=== PATIENT | female | born 1935 | race Caucasian/White ===

== ENCOUNTER 2016-08-12 09:19 | Inpatient (IN) | payer MEDICARE, BC, OTHER ==
[~2016-08-12] VITALS: Ht 152.4 cm; Wt 42.1 kg
[2016-08-12] VITALS (8 sets, daily range): BP systolic 133–220; BP diastolic 77–116; PULSE 97–119; RESP 16–29; TEMP 97.6–98.1; O2SAT 96–99
[~2016-08-12 09:19] MED LIST: ASPI-110 PO; CHOL400D2 PO; CYAN1TAB24 PO; METO25TA6 PO; MULT1TAB46 PO; TYLETAB34 PO
[2016-08-12] MEDS ORDERED: ONDANSETRON HCL 4 MG/2 ML VIAL IV PUSH ONE (09:30)
[2016-08-12] MEDS ORDERED: MORPHINE SULFATE 4 MG/ML INJ IV PUSH ONE (09:30)
--- NOTE | 2016-08-12 09:33 | PD ---
HPI Chief Complaint: Pain: Acute or Chronic Time Seen by Provider: 09:21 Travel History International Travel<30 days: No Contact w/Intl Traveler<30days: No Traveled to known affect area: No History of Present Illness HPI 80-year-old female complains of bilateral hip pain. Patient states that she has intermittent bilateral hip pain for the past year after a fall. Patient was seen by personal physician and neurosurgeon recently. Patient had MRI of the lumbar spine recently which shows DJD and disc disease. Patient denies any recent injury. Patient states the pain sharp severe pain worse on the left than the right hip. Patient denies any pain radiation. Patient denies any headache. Patient denies any chest pain or shortness of breath. Patient denies abdominal pain. Patient denies any back pain. Patient states the pain most severe on the back of the hip joint. On a scale of 1-10 the pain is a 10. PFSH Past Medical History Arthritis: Yes Asthma: No Autoimmune Disease: No Blood Disorders: No Anxiety: No Depression: No Heart Rhythm Problems: No Cancer: No Cardiac Catheterization: Yes Cardiovascular Problems: Yes (stent) High Cholesterol: Yes Chemotherapy: No Chest Pain: No Congestive Heart Failure: No COPD: No Cerebrovascular Accident: No Diabetes: No Diminished Hearing: No Endocrine: No Gastrointestinal Disorders: Yes (previous bowel obstruction, chronic diarrhea) GERD: No Glaucoma: No Genitourinary: No Headaches: No Hepatitis: No Hiatal Hernia: No Hypertension: Yes Immune Disorder: No Implanted Vascular Access Dvce: Yes Kidney Stones: No Musculoskeletal: Yes (OSTEOPOROSIS. DDD) Neurologic: Yes Psychiatric: No Reproductive: No Respiratory: No Integumentary: Yes (WOUND ON RIGHT LEG) Immunizations Current: No Migraines: No Myocardial Infarction: Yes Radiation Therapy: No Renal Failure: No Seizures: No Sickle Cell Disease: No Sleep Apnea: No Thyroid Disease: No Ulcer: No PNEUMOCCOCAL Vaccine (Year): 2 Menopausal: Yes Past Surgical History AICD: No Arteriovenous Shunt: No Body Medical Devices: cardiac stent Cardiac Surgery: Yes (Cardiac stents x2) Coronary Artery Bypass Graft: Yes Coronary Stent: Yes (X 2) Ear Surgery: No Endocrine Surgery: No Eye Surgery: No Genitourinary Surgery: No Gynecologic Surgery: No Hysterectomy: Yes Insulin Pump: No Joint Replacement: Yes (bilateral total knee replacement) Neurologic Surgery: No Oral Surgery: No Pacemaker: No Thoracic Surgery: No Other Surgery: Yes (R CAROTID ENDARTECTOMY) Social History Alcohol Use: No Tobacco Use: No Substance Use: No Allergies-Medications (Allergen,Severity, Reaction): Coded Allergies: Ambien (Verified Allergy, Severe, made her go crazy, 08/12/16) Plavix (Verified Allergy, Mild, 08/12/16) PEANUTS (Verified Allergy, Unknown, Swelling, 08/12/16) pt states her lips "blow up" [place] (Verified Allergy, Unknown, Swelling, 08/12/16) pt states that her "lips blow up" Uncoded Allergies: Wine (Allergy, Intermediate, Rash, 05/24/16) Reported Meds & Prescriptions Reported Meds & Active Scripts Active Reported Tylenol-Codeine #3 (Acetaminophen-Codeine) 300-30 mg Tab 1 Tab PO Q4H PRN Multi Vitamin Daily (Multiple Vitamin) 1 Tab Tab 1 Tab PO DAILY B12 (Cyanocobalamin) 1,000 Mcg Tab 2,500 Mcg PO DAILY Aspirin 81 (Aspirin) 81 Mg Tabdr 81 Mg PO DAILY Metoprolol Succinate ER 24 HR (Metoprolol Succinate) 25 Mg Tab 25 Mg PO BID Review of Systems General / Constitutional: No: Fever Eyes: No: Visual changes HENT: No: Headaches Cardiovascular: No: Chest Pain or Discomfort Respiratory: No: Shortness of Breath Gastrointestinal: No: Abdominal Pain Genitourinary: No: Dysuria Musculoskeletal: Positive: Pain Skin: No Rash Neurologic: No: Weakness Psychiatric: No: Depression Endocrine: No: Polydipsia Hematologic/Lymphatic: No: Easy Bruising Physical Exam Narrative GENERAL: Well-nourished, well-developed patient. SKIN: Focused skin assessment warm/dry. HEAD: Normocephalic. EYES: No scleral icterus. No injection or drainage. NECK: Supple, trachea midline. No JVD or lymphadenopathy. CARDIOVASCULAR: Regular rate and rhythm without murmurs, gallops, or rubs. RESPIRATORY: Breath sounds equal bilaterally. No accessory muscle use. GASTROINTESTINAL: Abdomen soft, non-tender, nondistended. MUSCULOSKELETAL: No cyanosis, or edema. Patient has moderate tenderness palpation posterior aspect of both hip joint. Full range of motion the hip. Sensorimotor function distally intact. BACK: Nontender without obvious deformity. No CVA tenderness. Neurologic exam: Patient's awake and alert oriented 3. No obvious focal neurological deficit. Data Data Last Documented VS Vital Signs Date Time Temp Pulse Resp B/P Pulse Ox O2 Delivery O2 Flow Rate FiO2 08/12/16 12:42 108 24 165/81 96 Room Air 08/12/16 09:27 98.1 Orders Morphine Inj (Morphine Inj) (08/12/16 09:30) Ondansetron Inj (Zofran Inj) (08/12/16 09:30) Hip, Uni(Ap&Lat) Wo Ap Pelvis (08/12/16 09:30) Hip, Uni(Ap&Lat) W Ap Pelvis (08/12/16 09:30) Ketorolac Inj (Toradol Inj) (08/12/16 09:45) Lorazepam Inj (Ativan Inj) (08/12/16 11:45) Ct Brain W/O Iv Contrast(Rout) (08/12/16 11:36) Urinary Catheter Insert/Apply (08/12/16 12:01) Complete Blood Count With Diff (08/12/16 12:08) Basic Metabolic Panel (Bmp) (08/12/16 12:08) Prothrombin Time / Inr (Pt) (08/12/16 12:08) Act Partial Throm Time (Ptt) (08/12/16 12:08) Urinalysis - C+S If Indicated (08/12/16 12:08) Labs Laboratory Tests Test 08/12/16 08/12/16 10:15 12:00 White Blood Count 13.0 TH/MM3 Red Blood Count 4.37 MIL/MM3 Hemoglobin 13.5 GM/DL Hematocrit 42.1 % Mean Corpuscular Volume 96.3 FL Mean Corpuscular Hemoglobin 30.8 PG Mean Corpuscular Hemoglobin 32.0 % Concent Red Cell Distribution Width 14.0 % Platelet Count 316 TH/MM3 Mean Platelet Volume 9.5 FL Neutrophils (%) (Auto) 74.9 % Lymphocytes (%) (Auto) 15.3 % Monocytes (%) (Auto) 7.6 % Eosinophils (%) (Auto) 1.0 % Basophils (%) (Auto) 1.2 % Neutrophils # (Auto) 9.7 TH/MM3 Lymphocytes # (Auto) 2.0 TH/MM3 Monocytes # (Auto) 1.0 TH/MM3 Eosinophils # (Auto) 0.1 TH/MM3 Basophils # (Auto) 0.2 TH/MM3 CBC Comment DIFF FINAL Differential Comment Prothrombin Time 10.5 SEC Prothromb Time International 1.0 RATIO Ratio Activated Partial 23.3 SEC Thromboplast Time Sodium Level 137 MEQ/L Potassium Level 3.8 MEQ/L Chloride Level 102 MEQ/L Carbon Dioxide Level 24.9 MEQ/L Anion Gap 10 MEQ/L Blood Urea Nitrogen 17 MG/DL Creatinine 0.76 MG/DL Estimat Glomerular Filtration 73 ML/MIN Rate Random Glucose 91 MG/DL Calcium Level 9.5 MG/DL Urine Color YELLOW Urine Turbidity CLEAR Urine pH 5.5 Urine Specific [place] 1.034 Urine Protein TRACE mg/dL Urine Glucose (UA) NEG mg/dL Urine Ketones 10 mg/dL Urine Occult Blood NEG Urine Nitrite NEG Urine Bilirubin NEG Urine Urobilinogen LESS THAN 2.0 MG/DL Urine Leukocyte Esterase NEG Urine RBC 2 /hpf Urine WBC 2 /hpf Urine Bacteria RARE /hpf Urine Mucus FEW /lpf Microscopic Urinalysis Comment CULT NOT INDICATED MDM Medical Decision Making Medical Screen Exam Complete: Yes Emergency Medical Condition: Yes Interpretation(s) Last Impressions Head CT 08/12/16 1136 Signed Impressions: Service Date/Time: Friday, August 12, 2016 12:19 - CONCLUSION: Central and cortical atrophy otherwise negative for an acute process.. Massimo Barrios MD FACR Hip and Pelvis X-Ray 08/12/16929 Signed Impressions: Service Date/Time: Friday, August 12, 2016 10:03 - CONCLUSION: 1. No acute fracture or joint dislocation. 2. Old healed fractures involving the left superior and inferior pubic rami. Cosme Hernandez MD Hip X-Ray 08/12/16929 Signed Impressions: Service Date/Time: Friday, August 12, 2016 10:03 - CONCLUSION: 1. 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 Cosme Hernandez MD 1300 p.m. CBC WBC 13.0. 74 neutrophil. BMP within normal limit. UA is negative. Differential Diagnosis Differential diagnosis including osteoarthritis, fracture, dislocation, tendinitis, bursitis, radiculopathy. Narrative Course 80-year-old female with bilateral hip pain. Patient fell years ago and has intermittent pain since then. Toradol 30 mg IV. Morphine 2 mg IV. Zofran 4 mg IV. Patient became agitated with tachycardia and elevated blood pressure. Ativan 0.5 mg IV given. Patient got better and tachycardia and elevated blood pressure resolved. Patient resting comparably. states that he cannot take care of the patient by himself at home. Patient was the halfway in the past. Patient's took patient out and now states that he is unable to take care of patient at home. Patient's requesting family preservation caseworker consultation. I spoke with Dr. Forbes's physician operations and intelligence assistant. Advised admission and family preservation caseworker consultation for placement. Diagnosis Primary Impression: Arthralgia of hip Qualified Code: M25.551 - Pain of both hip joints Additional Impression: Unable to ambulate Admitting Information Admitting Physician Requests: Admit Wicho Gamino MD Aug 12, 2016 09:33
[2016-08-12] MEDS ORDERED: KETOROLAC TROMETHAMINE 30 MG/ML (IVP) VIAL IV PUSH ONE (09:45)
--- NOTE | 2016-08-12 10:16 | RADRPT ---
EXAM DATE/TIME: 08/12/2016 10:03 [facility] COMPARISON: No previous studies available for comparison. INDICATIONS : Chronic right hip pain after a fall 1 year ago. MEDICAL HISTORY : None. SURGICAL HISTORY : Right femoral kitty. ENCOUNTER: Initial ACUITY: >1 year PAIN SCORE: 10/10 LOCATION: Right pelvis FINDINGS: Examination of the right hip was performed with AP Pelvis. The bony structures of the pelvis and righ t hip are grossly intact. No acute bony fracture or joint dislocation is seen. There is evidence of o ld healed fractures involving the left superior and inferior pubic ramus. There is good alignment at the SI joints and pubic symphysis. There is evidence of previous internal fixation of the right femur . The hardware is grossly intact area there is a total right knee prosthesis in place. Vascular calci fications are noted in the soft tissues. There is protrusio acetabula of the left hip. CONCLUSION: 1. No acute fracture or joint dislocation. 2. Old healed fractures involving the left superior and inferior pubic rami. Cosme Hernandez MD on August 12, 2016 at 10:12 Board Certified Radiologist. This report was verified electronically.
--- NOTE | 2016-08-12 10:21 | RADRPT ---
EXAM DATE/TIME: 08/12/2016 10:03 [facility] COMPARISON: No previous studies available for comparison. INDICATIONS : Chronic left hip pain after a fall 1 year ago. MEDICAL HISTORY : None. SURGICAL HISTORY : Right femoral kitty. ENCOUNTER: Initial ACUITY: >1 year PAIN SCORE: 10/10 LOCATION: Left pelvis FINDINGS: A two view examination of the left hip was performed. There are old healed fractures involving the smith perior pubic ramus and inferior pubic ramus. There is good alignment at the pubic symphysis. 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 This is chronic changes related to arthritis. There is narrowin g of the joint space. No acute fracture or joint dislocation is seen. There are vascular calcificatio ns in the soft tissues. CONCLUSION: 1. 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 Cosme Hernandez MD on August 12, 2016 at 10:18 Board Certified Radiologist. This report was verified electronically.
[2016-08-12] MEDS ORDERED: LORazepam 2 MG/ML VIAL IV PUSH ONE (11:45)
[2016-08-12 12:37] LABS: BACTERIA, URINE RARE /hpf; BLOOD, URINE NEG (NEG); COMMENT (UR) CULT NOT INDICATED; CULTURE IF INDICATED CULT NOT INDICATED; GLUCOSE,URINE NEG (NEG); KETONE, URINE 10 mg/dL (NEG); MUCUS URINE FEW /lpf (OCC); NITRITE,URINE NEG (NEG); PH, URINE 5.5 (5.0-8.5); URINE COLOR YELLOW (YELLW/STRAW)
[2016-08-12 12:44] LABS: AUTOMATED NEUTROPHIL # 9.7 TH/MM3 (1.8-7.7); BASOPHIL # 0.2 TH/MM3 (0-0.2); BASOPHIL % 1.2 % (0.0-2.0); EOSINOPHIL # 0.1 TH/MM3 (0-0.4); HEMATOCRIT 42.1 % (35.0-46.0); HEMO FLAGS DIFF FINAL; LYMPH % 15.3 % (9.0-44.0); MEAN CELL VOLUME 96.3 FL (80.0-100.0); MEAN CORPUSCULAR HEMOGLOBIN 30.8 PG (27.0-34.0); MONO % 7.6 % (0.0-8.0); NEUT % 74.9 % (16.0-70.0); PLATELET COUNT 316 TH/MM3 (150-450); RED BLOOD COUNT 4.37 MIL/MM3 (4.00-5.30)
--- NOTE | 2016-08-12 12:44 | RADRPT ---
EXAM DATE/TIME: 08/12/2016 12:19 [facility] COMPARISON: CT BRAIN W/O CONTRAST, July 05, 2015, 16:55. INDICATIONS : Altered mental status. RADIATION DOSE: 56.35 CTDIvol (mGy) MEDICAL HISTORY : Cardiovascular disease. Hypertension. SURGICAL HISTORY : CABG Carotid endarterectomy. ENCOUNTER: Initial ACUITY: 1 day PAIN SCALE: 0/10 LOCATION: cranial TECHNIQUE: Multiple contiguous axial images were obtained of the head. Using automated exposure control and adj ustment of the mA and/or kV according to patient size, radiation dose was kept as low as reasonably a chievable to obtain optimal diagnostic quality images. DICOM format image data is available electro nically for review and comparison. FINDINGS: CEREBRUM: There is mild central and cortical atrophy with periventricular white matter changes. There is no par enchymal hemorrhage, acute infarction or mass lesion. POSTERIOR FOSSA: The cerebellum and brainstem are intact. The 4th ventricle is midline. The cerebellopontine angle i s unremarkable. EXTRACRANIAL: The visualized portion of the orbits are unremarkable. The visualized sinuses are clear. SKULL: The calvaria is intact. No evidence of skull fracture. CONCLUSION: Central and cortical atrophy otherwise negative for an acute process.. Massimo Barrios MD FACR Board Certified Radiologist. This report was verified electronically.
[2016-08-12 12:45] LABS: APTT (PATIENT) 23.3 SEC (24.3-30.1); PROTHROMBIN TIME - PATIENT 10.5 SEC (9.8-11.6)
[2016-08-12 12:57] LABS: BICARBONATE 24.9 MEQ/L (21.0-32.0); POTASSIUM 3.8 MEQ/L (3.5-5.1)
[2016-08-12] MEDS ORDERED: ONDANSETRON HCL 4 MG/2 ML VIAL IVP PRN (14:45)
[2016-08-12] MEDS ORDERED: MAGNESIUM HYDROXIDE SUSP 30 ML CUP PO PRN (14:45)
[2016-08-12] MEDS ORDERED: BISACODYL 10 MG SUPP RECTAL PRN (14:45)
[2016-08-12] MEDS ORDERED: SENNOSIDES 8.6 MG TAB PO PRN (14:45)
[2016-08-12] MEDS ORDERED: ACETAMINOPHEN 325 MG TAB PO PRN (14:45)
[2016-08-12] MEDS ORDERED: NALOXONE HCL 0.4 MG/ML AMP IV PRN (14:45)
[2016-08-12] MEDS ORDERED: SODIUM CHLORIDE 0.9% FLUSH 10 ML FLUSH IV FLUSH PRN (14:45)
--- NOTE | 2016-08-12 15:24 | HHI.HP ---
History of Present Illness Primary Care Physician Tyrell Forbes, DO Admission Diagnosis hip arthralgia. Unable to ambulate. marked anxiety Diagnoses: History of Present Illness halle had long-term anxiety and hypertension today her hipsbecame very painful and she was unable to ambyulate she became extremely anxious to the point of a full blown panic attack and was brought to ED by her Review of Systems Constitutional: COMPLAINS OF: Weight loss Musculoskeletal: COMPLAINS OF: Joint pain, Muscle aches, Stiffness, Back pain Past Family Social History Allergies: Coded Allergies: Ambien (Verified Allergy, Severe, made her go crazy, 08/12/16) Plavix (Verified Allergy, Mild, 08/12/16) PEANUTS (Verified Allergy, Unknown, Swelling, 08/12/16) pt states her lips "blow up" [place] (Verified Allergy, Unknown, Swelling, 08/12/16) pt states that her "lips blow up" Uncoded Allergies: Wine (Allergy, Intermediate, Rash, 05/24/16) Past Medical History hypertension anxiety Past Surgical History pt claims back injections epidural steroids Reported Medications Reported Meds & Active Scripts Active Reported Tylenol-Codeine #3 (Acetaminophen-Codeine) 300-30 mg Tab 1 Tab PO Q4H PRN Multi Vitamin Daily (Multiple Vitamin) 1 Tab Tab 1 Tab PO DAILY B12 (Cyanocobalamin) 1,000 Mcg Tab 2,500 Mcg PO DAILY Aspirin 81 (Aspirin) 81 Mg Tabdr 81 Mg PO DAILY Metoprolol Succinate ER 24 HR (Metoprolol Succinate) 25 Mg Tab 25 Mg PO BID Active Ordered Medications Inpatient Medications Acetaminophen (Tylenol) 650 mg Q4H PRN PO TEMP > 100.4; Start 08/12/16 at 14:45 ; Status UNV Aspirin (Ecotrin Ec) 81 mg DAILY PO ; Start 08/13/16 at 09:00; Status UNV Bisacodyl (Dulcolax Supp) 10 mg DAILY PRN RECTAL SEVERE CONSITIPATION; Start at 14:45; Status UNV Enoxaparin Sodium (Lovenox Inj) 30 mg Q24H SQ ; Start 08/12/16 at 14:45; Status UNV Famotidine (Pepcid) 20 mg BID PO ; Start 08/12/16 at 21:00; Status UNV Ketorolac Tromethamine (Toradol Inj) 30 mg ONCE ONCE IV PUSH Last administered on 08/12/16 09:45; Start 08/12/16 at 09:45; Stop 08/12/16 at 09:46; Status DC Lorazepam (Ativan Inj) 0.5 mg ONCE ONCE IV PUSH Last administered on 08/12/16 11:40; Start 08/12/16 at 11:45; Stop 08/12/16 at 11:46; Status DC Magnesium Hydroxide (Milk Of Magnesia Liq) 30 ml Q12H PRN PO MILD - MODERATE CONSTIPATION; Start 08/12/16 at 14:45; Status UNV Metoprolol Succinate (Toprol Xl) 25 mg BID PO ; Start 08/12/16 at 21:00; Status UNV Morphine Sulfate (Morphine Inj) 2 mg ONCE ONCE IV PUSH Last administered on 09:35; Start 08/12/16 at 09:30; Stop 08/12/16 at 09:31; Status DC Naloxone HCl (Narcan Inj) 0.4 mg UNSCH PRN IV SEE LABEL COMMENTS; Start at 14:45; Status UNV Non-Formulary Medication 1 tab DAILY PO ; Start 08/13/16 at 09:00; Status UNV Ondansetron HCl (Zofran Inj) 4 mg Q6H PRN IVP NAUSEA OR VOMITING; Start at 14:45; Status UNV Senna/Docusate Sodium (Leonor-Colace) 1 tab BID PO ; Start 08/12/16 at 21:00; Status UNV Sennosides (Senokot) 17.2 mg Q12H PRN PO MODERATE - SEVERE CONSTIPATION; Start 08/12/16 at 14:45; Status UNV Sodium Chloride (NS Flush) 2 ml BID IV FLUSH ; Start 08/12/16 at 21:00; Status UNV Family History non contributatory Social History non smoker rare drinker Physical Exam Vital Signs Vital Signs Date Time Temp Pulse Resp B/P Pulse Ox O2 Delivery O2 Flow Rate FiO2 08/12/16 15:06 99 16 133/86 99 Room Air 08/12/16 12:42 108 24 165/81 96 Room Air 08/12/16 11:32 119 29 200/116 98 Room Air 08/12/16 09:45 103 27 160/77 99 Room Air 08/12/16 09:37 97 16 220/100 97 Room Air 08/12/16 09:27 98.1 105 26 220/100 99 Physical Exam GENERAL: This is a frail anxious white female SKIN: No rashes, ecchymoses or lesions. Cool and dry. HEAD: Atraumatic. Normocephalic. No temporal or scalp tenderness. EYES: Pupils equal round and reactive. Extraocular motions intact. No scleral icterus. No injection or drainage. ENT: Nose without bleeding, purulent drainage or septal hematoma. Throat without erythema, tonsillar hypertrophy or exudate. Uvula midline. Airway patent. NECK: Trachea midline. No JVD or lymphadenopathy. Supple, nontender, no meningeal signs. CARDIOVASCULAR: Regular rate and rhythm without murmurs, gallops, or rubs. RESPIRATORY: Clear to auscultation. Breath sounds equal bilaterally. No wheezes , rales, or rhonchi. GASTROINTESTINAL: Abdomen soft, non-tender, nondistended. No hepato-splenomegaly , or palpable masses. No guarding. MUSCULOSKELETAL: Extremities without clubbing, cyanosis, or edema. strength is diminished bilaterally NEUROLOGICAL: Awake and alert very anxious. Cranial nerves II through XII intact. Motor and sensory grossly within normal limits Normal speech. Laboratory Laboratory Tests Test 08/12/16 08/12/16 10:15 12:00 White Blood Count 13.0 Red Blood Count 4.37 Hemoglobin 13.5 Hematocrit 42.1 Mean Corpuscular Volume 96.3 Mean Corpuscular Hemoglobin 30.8 Mean Corpuscular Hemoglobin 32.0 Concent Red Cell Distribution Width 14.0 Platelet Count 316 Mean Platelet Volume 9.5 Neutrophils (%) (Auto) 74.9 Lymphocytes (%) (Auto) 15.3 Monocytes (%) (Auto) 7.6 Eosinophils (%) (Auto) 1.0 Basophils (%) (Auto) 1.2 Neutrophils # (Auto) 9.7 Lymphocytes # (Auto) 2.0 Monocytes # (Auto) 1.0 Eosinophils # (Auto) 0.1 Basophils # (Auto) 0.2 CBC Comment DIFF FINAL Differential Comment Prothrombin Time 10.5 Prothromb Time International 1.0 Ratio Activated Partial 23.3 Thromboplast Time Sodium Level 137 Potassium Level 3.8 Chloride Level 102 Carbon Dioxide Level 24.9 Anion Gap 10 Blood Urea Nitrogen 17 Creatinine 0.76 Estimat Glomerular Filtration 73 Rate Random Glucose 91 Calcium Level 9.5 Urine Color YELLOW Urine Turbidity CLEAR Urine pH 5.5 Urine Specific [place] 1.034 Urine Protein TRACE Urine Glucose (UA) NEG Urine Ketones 10 Urine Occult Blood NEG Urine Nitrite NEG Urine Bilirubin NEG Urine Urobilinogen LESS THAN 2.0 Urine Leukocyte Esterase NEG Urine RBC 2 Urine WBC 2 Urine Bacteria RARE Urine Mucus FEW Microscopic Urinalysis Comment CULT NOT INDICATED Result Diagram: 08/12/16 1015 08/12/16 1015 Imaging Last [address] 08/12/16 1136 Signed Impressions: Service Date/Time: Friday, August 12, 2016 12:19 - CONCLUSION: Central and cortical atrophy otherwise negative for an acute process.. Massimo Barrios MD FACR Hip and Pelvis X-Ray 08/12/16929 Signed Impressions: Service Date/Time: Friday, August 12, 2016 10:03 - CONCLUSION: 1. No acute fracture or joint dislocation. 2. Old healed fractures involving the left superior and inferior pubic rami. Cosme Hernandez MD Hip X-Ray 08/12/16929 Signed Impressions: Service Date/Time: Friday, August 12, 2016 10:03 - CONCLUSION: 1. 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 Cosme Hernandez MD Course pt has been medicated for pain and is more comfortable now Assessment and Plan Problem List: (1) Arthralgia of hip Status: Acute (2) Parkinsonism Status: Acute Plan: consult neuro (3) Hypertension Status: Chronic Plan: stable on metoprolol (4) Unable to ambulate Status: Acute Plan: neurosurgical consult (5) Weakness Status: Acute Plan: ck lab Assessment and Plan bilateral hip pain anxiety Discharge Planning rehab Problem Qualifiers (1) Arthralgia of hip: Qualified Code: M25.551 - Pain of both hip joints Tyrell Forbes DO Aug 12, 2016 15:24
[2016-08-12] MEDS ORDERED: LORazepam 2 MG/ML VIAL IV PUSH PRN (15:30)
--- NOTE | 2016-08-12 17:32 | RADRPT ---
EXAM DATE/TIME: 08/12/2016 16:32 [facility] COMPARISON: MRI LUMBAR SPINE W/O CONTRAST, July 05, 2015, 18:18. INDICATIONS : Inability to ambulate. Low back pain. MEDICAL HISTORY : Osteoarthritis. Hypertension. SURGICAL HISTORY : Carotid endarterectomy. Total knee replacement, right. Coronary artery stent. ENCOUNTER: Initial ACUITY: 1 day PAIN SCORE: 7/10 LOCATION: Low back TECHNIQUE: Multiplanar multisequence MRI of the lumbar spine was performed without contrast. FINDINGS: The most caudal appearing lumbar vertebra is numbered as L5. VERTEBRAE: There is a new moderate to prominent compression fracture injury at T12. There is bone marrow edema s een throughout the body of T12. There are primary bony degenerative changes of the lumbar spine. Ther e is disc dehydration all the levels with disc space narrowing at L1-2 and L5-S1. The degenerative ch anges of the lumbar spine appear to be stable compared to the prior exam. [place]: Normal level and configuration. T12-L1: There is a moderate compression fracture injury at the level of T12. There is diffuse broad-based bul ging of the disc. There is retropulsion of the bone material posteriorly secondary to the compression fracture of T12 causing at least moderate to severe spinal canal stenosis. There is narrowing of the neural foramina bilaterally. L1-L2: The thecal sac has a normal diameter. No evidence of disc bulge or protrusion. The neural foramina are patent bilaterally. L2-L3: The thecal sac has a normal diameter. No evidence of disc bulge or protrusion. The neural foramina are patent bilaterally. L3-L4: The thecal sac has a normal diameter. No evidence of disc bulge or protrusion. The neural foramina are patent bilaterally. Bilateral facet arthritis. L4-L5: Mild broad-based bulging. The neural foramina are patent. There is bilateral facet arthritis. L5-S1: Mild broad-based bulging. The neural foramina are patent bilaterally. Bilateral facet arthritis. CONCLUSION: 1. There is a new moderate to prominent compression fracture injury at T12. There is moderate diffuse broad-based bulging at T12-L1 as well as retropulsion of bone material posteriorly causing at least moderate to severe spinal canal stenosis. 2. There is stable primary bony degenerative changes, disc degeneration and disc space narrowing invo lving the lumbar spine when compared to 2016. Cosme Hernandez MD on August 12, 2016 at 17:24 Board Certified Radiologist. This report was verified electronically.
[2016-08-12] MEDS: ACETAMINOPHEN/CODEINE 300 MG/30 MG TAB PO PRN (17:59)
[2016-08-12] MEDS: ENOXAPARIN SODIUM 30 MG/0.3 ML SYRINGE SQ SCH (18:00)
[2016-08-12] MEDS ORDERED: METOPROLOL SUCCINATE 25 MG EXTENDED RELEASE TAB PO ONE (19:45)
[2016-08-12] MEDS: DOCUSATE SODIUM 50 MG/SENNA 8.6 MG TAB PO SCH (20:13)
[2016-08-12] MEDS: FAMOTIDINE 20 MG TAB PO SCH (20:13)
[2016-08-12] MEDS: SODIUM CHLORIDE 0.9% FLUSH 10 ML FLUSH IV FLUSH SCH (20:13)
[2016-08-12] MEDS: METOPROLOL SUCCINATE 25 MG EXTENDED RELEASE TAB PO SCH (21:00)
--- NOTE | 2016-08-12 22:11 | PD.CONS ---
History of Present Illness Service Neurosurgery Consult Requested By Dr. Forbes Reason for Consult Compression fracture Primary Care Physician Tyrell Forbes, DO Diagnoses: History of Present Illness 80-year-old female presented to the emergency room with progressive back and hip pain. The patient was previously seen by the undersigned as an outpatient on 07/18/16 with a history of approximately one year of persistent and overall progressive back pain treated with conservative treatment as well as pain management. She has a history of falling last fall with generalized increase in her pain. In early July 2016 she felt a snapping sensation in her back with further increase in back pain. Her examination on 07/18/16 revealed no significant lower extremity neurologic deficit. An MRI of 07/08/[facility] has revealed a proximally 75% mid anterior T12 compression fracture with relatively good preservation of posterior vertebral body height and minimal retropulsion into the canal without significant neural compromise. Minimal increasing intensity in the posterior vertebral body. Probable subacute to chronic fracture. Patient was placed in a lumbar brace. She states that over the past 2-3 weeks the pain became even more severe to the point where she can ambulate for only a short distance with a walker. She states that her pain is 10/10 severity and more recently has started to radiate into the left greater than right hip. She denies any pain weakness or numbness in the lower extremities. No problems with bowel or bladder dysfunction. She has been using a wheelchair to mobilize for long distances for a few months. Review of Systems Constitutional: COMPLAINS OF: Fatigue, DENIES: Fever, Change in appetite Eyes: DENIES: Blurred vision Respiratory: DENIES: Shortness of breath Cardiovascular: DENIES: Chest pain, Palpitations Gastrointestinal: DENIES: Abdominal pain, Nausea Musculoskeletal: COMPLAINS OF: Joint pain, Muscle aches, Back pain Hematologic/lymphatic: COMPLAINS OF: Bruising Neurologic: COMPLAINS OF: Abnormal gait, DENIES: Headache Psychiatric: COMPLAINS OF: Anxiety Past Family Social History Allergies: Coded Allergies: Ambien (Verified Allergy, Severe, made her go crazy, 08/12/16) Plavix (Verified Allergy, Mild, 08/12/16) PEANUTS (Verified Allergy, Unknown, Swelling, 08/12/16) pt states her lips "blow up" [place] (Verified Allergy, Unknown, Swelling, 08/12/16) pt states that her "lips blow up" Uncoded Allergies: Wine (Allergy, Intermediate, Rash, 05/24/16) Past Medical History Coronary artery disease Previous CA Parkinson's Arthritis Hypertension Dyslipidemia Past Surgical History Hysterectomy Bilateral knee arthroplasty Carotid endarterectomy Cardiac stents Reported Medications Reported Meds & Active Scripts Active Reported Tylenol-Codeine #3 (Acetaminophen-Codeine) 300-30 mg Tab 1 Tab PO Q4H PRN Multi Vitamin Daily (Multiple Vitamin) 1 Tab Tab 1 Tab PO DAILY B12 (Cyanocobalamin) 1,000 Mcg Tab 2,500 Mcg PO DAILY Aspirin 81 (Aspirin) 81 Mg Tabdr 81 Mg PO DAILY Metoprolol Succinate ER 24 HR (Metoprolol Succinate) 25 Mg Tab 25 Mg PO BID Family History The history of cancer, neurologic disease in the family Social History Lives with her Does not smoke cigarettes or drink alcohol Physical Exam Vital Signs Vital Signs Date Time Temp Pulse Resp B/P Pulse Ox O2 Delivery O2 Flow Rate FiO2 08/12/16 17:15 97.6 101 19 201/89 98 08/12/16 15:06 99 16 133/86 99 Room Air 08/12/16 12:42 108 24 165/81 96 Room Air 08/12/16 11:32 119 29 200/116 98 Room Air 08/12/16 09:45 103 27 160/77 99 Room Air 08/12/16 09:37 97 16 220/100 97 Room Air 08/12/16 09:27 98.1 105 26 220/100 99 Physical Exam GENERAL: Patient is a very frail, cachectic-appearing lady who appears somewhat anxious and mildly confused. SKIN: Multiple areas of ecchymosis throughout the upper extremities. Very fragile skin. Multiple skin tears in the upper extremities. Positive dressing over her sacral skin ulcerations. HEAD: Atraumatic. Normocephalic. No temporal or scalp tenderness. EYES: Sclerae are clear and nonicteric ENT: Oropharynx clear. No facial edema or ecchymosis NECK: Trachea midline. No JVD or lymphadenopathy. Supple, nontender, no meningeal signs. CARDIOVASCULAR: Regular rate and rhythm without murmurs, gallops, or rubs. RESPIRATORY: Clear to auscultation. Breath sounds equal bilaterally. No wheezes , rales, or rhonchi. GASTROINTESTINAL: Abdomen soft, non-tender, nondistended. No hepato-splenomegaly , or palpable masses. No guarding. MUSCULOSKELETAL: Relatively good range of motion of the shoulder joints. Complaint of low back and left greater than right hip pain with mild hip range of motion. Diffuse muscular atrophy in the upper greater than lower extremities without active fasciculations. No significant extremity edema. Posterior tibial pulse 1+ bilateral NEUROLOGICAL: Awake and relatively alert Mild to moderate anxiety and mild confusion. She answers simple questions appropriately and follows simple commands with some difficulty. Her speech is clear She has moderate problems with remote memory. She can tell a basic things about her past medical history. Extraocular movements are intact Facial motor movement symmetric Sensation is intact to light touch in the upper and lower extremities Strength is normal major flexion extension groups in the upper extremities. She complains of low back pain with proximal lower extremity testing, but with encouragement is able to maintain at least briefly relatively normal strength in all major flexion and extension groups of the right and left lower extremity. Alicia's response absent bilateral No ankle clonus Plantar responses are neutral Laboratory Laboratory Tests Test 08/12/16 08/12/16 10:15 12:00 White Blood Count 13.0 Red Blood Count 4.37 Hemoglobin 13.5 Hematocrit 42.1 Mean Corpuscular Volume 96.3 Mean Corpuscular Hemoglobin 30.8 Mean Corpuscular Hemoglobin 32.0 Concent Red Cell Distribution Width 14.0 Platelet Count 316 Mean Platelet Volume 9.5 Neutrophils (%) (Auto) 74.9 Lymphocytes (%) (Auto) 15.3 Monocytes (%) (Auto) 7.6 Eosinophils (%) (Auto) 1.0 Basophils (%) (Auto) 1.2 Neutrophils # (Auto) 9.7 Lymphocytes # (Auto) 2.0 Monocytes # (Auto) 1.0 Eosinophils # (Auto) 0.1 Basophils # (Auto) 0.2 CBC Comment DIFF FINAL Differential Comment Prothrombin Time 10.5 Prothromb Time International 1.0 Ratio Activated Partial 23.3 Thromboplast Time Sodium Level 137 Potassium Level 3.8 Chloride Level 102 Carbon Dioxide Level 24.9 Anion Gap 10 Blood Urea Nitrogen 17 Creatinine 0.76 Estimat Glomerular Filtration 73 Rate Random Glucose 91 Calcium Level 9.5 Urine Color YELLOW Urine Turbidity CLEAR Urine pH 5.5 Urine Specific [place] 1.034 Urine Protein TRACE Urine Glucose (UA) NEG Urine Ketones 10 Urine Occult Blood NEG Urine Nitrite NEG Urine Bilirubin NEG Urine Urobilinogen LESS THAN 2.0 Urine Leukocyte Esterase NEG Urine RBC 2 Urine WBC 2 Urine Bacteria RARE Urine Mucus FEW Microscopic Urinalysis Comment CULT NOT INDICATED Result Diagram: 08/12/16 1015 08/12/16 1015 Imaging 08/12/16 CT scan of the head and lumbar spine MRI images are reviewed by the undersigned. Agree with findings as noted below: No significant spinal cord edema noted at the T12 fracture level. Head CT 08/12/16 1136 Signed Impressions: Service Date/Time: Friday, August 12, 2016 12:19 - CONCLUSION: Central and cortical atrophy otherwise negative for an acute process.. Massimo Barrios MD FACR Hip and Pelvis X-Ray 08/12/16 0930 Signed Impressions: Service Date/Time: Friday, August 12, 2016 10:03 - CONCLUSION: 1. No acute fracture or joint dislocation. 2. Old healed fractures involving the left superior and inferior pubic rami. Cosme Hernandez MD Hip X-Ray 08/12/16 0930 Signed Impressions: Service Date/Time: Friday, August 12, 2016 10:03 - CONCLUSION: 1. 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 Cosme Hernandez MD Lumbar Spine MRI 08/12/16 0000 Signed Impressions: Service Date/Time: Friday, August 12, 2016 16:32 - CONCLUSION: 1. There is a new moderate to prominent compression fracture injury at T12. There is moderate diffuse broad-based bulging at T12-L1 as well as retropulsion of bone material posteriorly causing at least moderate to severe spinal canal stenosis. 2. There is stable primary bony degenerative changes, disc degeneration and disc space narrowing involving the lumbar spine when compared to 2016. Cosme Hernandez MD Assessment and Plan Assessment and Plan Impression: 1. Progression of previously noted T12 compression fracture now with moderate canal compromise and mild anterior cord compression, but no definite abnormal signal intensity in the cord and no myelopathic findings or significant sensorimotor deficit in the lower extremities. 2. Sacral decubitus. These lesions have been present on a relatively chronic basis for the past year. She has been cared for in the wound care clinic. Patient has very poor overall skin integrity. Appears to have poor nutritional status 3. 3. History of coronary artery disease 4. Hypertension Recommendations: Findings were discussed with the patient. I will discuss the findings and treatments further with her when he comes to the hospital. The patient presents a difficult situation with a progressive significant T12 compression fracture with significant canal compromise. Her pain level is increasing, although her lower extremity neurologic function is intact at present. Overall, she is a poor candidate for surgical intervention. Her bone integrity is poor with history of osteoporosis, previous sacral fractures, and it is likely that her bone integrity is not sufficient to hold pedicle screw fixation or to properly heal a surgical fusion. In addition she has had multiple sacral decubiti over the past year which have been relatively difficult to heal. She has a current sacral skin ulceration, increasing her chance of surgical site infection. Treatment options are very limited that at this point. Prolonged bedrest will increase her chance of further skin breakdown, possible pulmonary problems and increased risk of infection. Todd Ferrer MD Aug 12, 2016 22:11
[2016-08-13 00:45] VITALS: BP 141/70; PULSE 91; RESP 17; TEMP 97.4; O2SAT 99
[2016-08-13 04:45] VITALS: BP 141/63; PULSE 97; RESP 17; TEMP 97.1; O2SAT 98
[2016-08-13 06:54] LABS: AUTOMATED NEUTROPHIL # 7.7 TH/MM3 (1.8-7.7); BASOPHIL # 0.1 TH/MM3 (0-0.2); BASOPHIL % 1.2 % (0.0-2.0); EOSINOPHIL # 0.4 TH/MM3 (0-0.4); EOSINOPHIL % 3.9 % (0.0-4.0); HEMATOCRIT 39.8 % (35.0-46.0); HEMO FLAGS DIFF FINAL; LYMPH % 13.3 % (9.0-44.0); LYMPHOCYTE # 1.4 TH/MM3 (1.0-4.8); MEAN CELL VOLUME 95.4 FL (80.0-100.0); MEAN CORPUSCULAR HEMOGLOBIN 31.7 PG (27.0-34.0); MEAN CORPUSCULAR HGB CONC 33.2 % (32.0-36.0); MONO % 8.8 % (0.0-8.0); NEUT % 72.8 % (16.0-70.0); PLATELET COUNT 295 TH/MM3 (150-450); RED BLOOD COUNT 4.18 MIL/MM3 (4.00-5.30); RED CELL DISTRIBUTION WIDTH 13.7 % (11.6-17.2); WHITE BLOOD COUNT 10.6 TH/MM3 (4.0-11.0)
[2016-08-13 07:15] LABS: ALT (GPT) 31 U/L (10-53); ANION GAP 7 MEQ/L (5-15); AST (GOT) 30 U/L (15-37); BICARBONATE 29.8 MEQ/L (21.0-32.0); BLOOD UREA NITROGEN 18 MG/DL (7-18); CHLORIDE 104 MEQ/L (98-107); GLOMERULAR FILTRATION RATE 92 ML/MIN (>89); POTASSIUM 4.2 MEQ/L (3.5-5.1); SODIUM (NA) 141 MEQ/L (136-145)
[2016-08-13 07:17] LABS: ALKALINE PHOSPHATASE 103 U/L (45-117); TOTAL BILIRUBIN ADULT 0.5 MG/DL (0.2-1.0)
[2016-08-13 07:58] VITALS: BP 137/65; PULSE 91; RESP 18; TEMP 96.6; O2SAT 97
[2016-08-13] MEDS: METOPROLOL SUCCINATE 25 MG EXTENDED RELEASE TAB PO SCH ×2 (08:10→21:34)
[2016-08-13] MEDS: DOCUSATE SODIUM 50 MG/SENNA 8.6 MG TAB PO SCH ×2 (08:10→21:34)
[2016-08-13] MEDS: PARoxetine 25 MG CONTROLLED RELEASE TAB PO SCH (08:10)
[2016-08-13] MEDS: MULTIVITAMIN TAB PO SCH (08:10)
[2016-08-13] MEDS: ASPIRIN EC 81 MG TABEC PO SCH (08:10)
[2016-08-13] MEDS: FAMOTIDINE 20 MG TAB PO SCH ×2 (08:10→21:34)
[2016-08-13] MEDS: CYANOCOBALAMIN 1,000 MCG TAB PO SCH (08:11)
[2016-08-13] MEDS: ACETAMINOPHEN/CODEINE 300 MG/30 MG TAB PO PRN (08:11)
[2016-08-13] MEDS: SODIUM CHLORIDE 0.9% FLUSH 10 ML FLUSH IV FLUSH SCH ×2 (08:11→21:00)
[2016-08-13] MEDS ORDERED: MAGNESIUM HYDROXIDE SUSP 30 ML CUP PO PRN (11:00)
[2016-08-13] MEDS ORDERED: LACTULOSE SYRUP 20 GM/30 ML CUP PO PRN (11:00)
[2016-08-13] MEDS ORDERED: BISACODYL 10 MG SUPP RECTAL PRN (11:00)
--- NOTE | 2016-08-13 11:05 | HHI.PR ---
Subjective Remarks pt mri shows t12 fx with cord impingement neurosurgery feels she is a high risk for operative repair with advanced age and poor bone i certainly agree will persue conservative measures as she is neurologically intact lower extremities at this time Objective Vital Signs Date Time Temp Pulse Resp B/P Pulse Ox O2 Delivery O2 Flow Rate FiO2 08/13/16 07:58 96.6 91 18 137/65 97 08/13/16 04:45 97.1 97 17 141/63 98 08/13/16 00:45 97.4 91 17 141/70 99 08/12/16 20:55 97.7 104 17 134/82 96 08/12/16 17:15 97.6 101 19 201/89 98 08/12/16 15:06 99 16 133/86 99 Room Air 08/12/16 12:42 108 24 165/81 96 Room Air 08/12/16 11:32 119 29 200/116 98 Room Air I/O 08/12/16 08/12/16 08/12/16 08/13/16 08/13/16 08/13/16 07:00 15:00 23:00 07:00 15:00 23:00 Intake Total 120 ml 50 ml Output Total 525 ml 100 ml Balance -405 ml -50 ml Intake Oral 120 ml 50 ml Output Urine Total 525 ml 100 ml # Voids 0 # Bowel Movements 0 0 Result Diagram: 08/13/16 0608 08/13/16 0608 Imaging Last [address] 08/12/16 1136 Signed Impressions: Service Date/Time: Friday, August 12, 2016 12:19 - CONCLUSION: Central and cortical atrophy otherwise negative for an acute process.. Massimo Barrios MD FACR Hip and Pelvis X-Ray 08/12/16929 Signed Impressions: Service Date/Time: Friday, August 12, 2016 10:03 - CONCLUSION: 1. No acute fracture or joint dislocation. 2. Old healed fractures involving the left superior and inferior pubic rami. Cosme Hernandez MD Hip X-Ray 08/12/16929 Signed Impressions: Service Date/Time: Friday, August 12, 2016 10:03 - CONCLUSION: 1. 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 Cosme Hernandez MD Lumbar Spine MRI 08/12/16 0000 Signed Impressions: Service Date/Time: Friday, August 12, 2016 16:32 - CONCLUSION: 1. There is a new moderate to prominent compression fracture injury at T12. There is moderate diffuse broad-based bulging at T12-L1 as well as retropulsion of bone material posteriorly causing at least moderate to severe spinal canal stenosis. 2. There is stable primary bony degenerative changes, disc degeneration and disc space narrowing involving the lumbar spine when compared to 2016. Cosme Hernandez MD Objective Remarks GENERAL: SKIN: Warm and dry.open area coccyx HEAD: Atraumatic. Normocephalic. EYES: Pupils equal and round. No scleral icterus. No injection or drainage. ENT: No nasal bleeding or discharge. Mucous membranes pink and moist. NECK: Trachea midline. No JVD. CARDIOVASCULAR: Regular rate and rhythm. RESPIRATORY: No accessory muscle use. Clear to auscultation. Breath sounds equal bilaterally. GASTROINTESTINAL: Abdomen soft, non-tender, nondistended. Hepatic and splenic margins not palpable. MUSCULOSKELETAL: Extremities intact frail NEUROLOGICAL: Awake and alert. No obvious cranial nerve deficits. Motor grossly within normal limits. Normal speech. PSYCHIATRIC: Appropriate mood and affect; insight and judgment normal.anxious less confused than yesterday Medications and IVs Inpatient Medications Acetaminophen (Tylenol) 650 mg Q4H PRN PO TEMP > 100.4; Start 08/12/16 at 14:45 Acetaminophen/ Codeine Phosphate (Tylenol-Codeine #3) 2 tab Q4H PRN PO PAIN 3- 10 Last administered on 08/13/16 08:11; Start 08/12/16 at 18:00 Aspirin (Ecotrin Ec) 81 mg DAILY PO Last administered on 08/13/16 08:10; Start 08/13/16 at 09:00 Bisacodyl (Dulcolax Supp) 10 mg DAILY PRN RECTAL SEVERE CONSITIPATION; Start at 14:45 Cyanocobalamin (Vitamin B12) 2,500 mcg DAILY PO Last administered on 08/13/16 08:11; Start 08/13/16 at 09:00 Enoxaparin Sodium (Lovenox Inj) 30 mg Q24H SQ Last administered on 08/12/16 18: 00; Start 08/12/16 at 17:00 Famotidine (Pepcid) 20 mg BID PO Last administered on 08/13/16 08:10; Start 08/12/16 at 21:00 Ketorolac Tromethamine (Toradol Inj) 30 mg ONCE ONCE IV PUSH Last administered on 08/12/16 09:45; Start 08/12/16 at 09:45; Stop 08/12/16 at 09:46; Status DC Lorazepam (Ativan Inj) 1 mg Q4H PRN IV PUSH MODERATE TO SEVERE ANXIETY Last administered on 08/13/16 08:12; Start 08/12/16 at 15:30 Magnesium Hydroxide (Milk Of Magnesia Liq) 30 ml Q12H PRN PO MILD - MODERATE CONSTIPATION; Start 08/12/16 at 14:45 Metoprolol Succinate (Toprol Xl) 25 mg ONCE ONCE PO Last administered on 20:13; Start 08/12/16 at 19:45; Stop 08/12/16 at 19:46; Status DC Morphine Sulfate (Morphine Inj) 2 mg ONCE ONCE IV PUSH Last administered on 09:35; Start 08/12/16 at 09:30; Stop 08/12/16 at 09:31; Status DC Multivitamins (Theragran) 1 tab DAILY PO Last administered on 08/13/16 08:10; Start 08/13/16 at 09:00 Naloxone HCl (Narcan Inj) 0.4 mg UNSCH PRN IV SEE LABEL COMMENTS; Start at 14:45 Ondansetron HCl (Zofran Inj) 4 mg Q6H PRN IVP NAUSEA OR VOMITING; Start at 14:45 Paroxetine HCl (Paxil Cr) 25 mg DAILY PO Last administered on 08/13/16 08:10; Start 08/13/16 at 09:00 Senna/Docusate Sodium (Leonor-Colace) 1 tab BID PO Last administered on 08/13/16 08:10; Start 08/12/16 at 21:00 Sennosides (Senokot) 17.2 mg Q12H PRN PO MODERATE - SEVERE CONSTIPATION; Start 08/12/16 at 14:45 Sodium Chloride (NS Flush) 2 ml BID IV FLUSH Last administered on 7/8/17at 08: 11; Start 08/12/16 at 21:00 Assessment and Plan Problem List: (1) Arthralgia of hip Status: Acute Plan: pain controlled with tylenol 3 (2) Parkinsonism Status: Acute Plan: consult neuro (3) Hypertension Status: Chronic Plan: stable on metoprolol (4) Unable to ambulate Status: Acute Plan: neurosurgical consult will treat conservatively for now (5) Weakness Status: Acute Plan: ck lab ck calcium and vit d levelas will supplement to aid in bone healing Assessment and Plan bilateral hip pain anxiety Discussed Condition With patient and Discharge Planning snf susanna rodriguez or lore Problem Qualifiers (1) Arthralgia of hip: Qualified Code: M25.551 - Pain of both hip joints Tyrell Forbes DO Aug 13, 2016 11:05
[2016-08-13 12:10] VITALS: BP 157/80; PULSE 100; RESP 18; TEMP 97; O2SAT 98
[2016-08-13 16:00] VITALS: BP 134/65; PULSE 91; RESP 18; TEMP 96.9; O2SAT 99
[2016-08-13] MEDS ORDERED: GADODIAMIDE PF 287 MG/ML 10 ML VIAL (for RAD MRI) IV ONE (16:11)
--- NOTE | 2016-08-13 16:24 | RADRPT ---
EXAM DATE/TIME: 08/13/2016 15:46 [facility] COMPARISON: MRI BRAIN W/O CONTRAST, July 07, 2015, 14:09. INDICATIONS : Inability to ambulate. CONTRAST: 9 cc Omniscan (gadodiamide) IV MEDICAL HISTORY : Hypertension. Arthritis. SURGICAL HISTORY : Carotid endarterectomy. Total knee replacement, right. Total knee replacement, left. ENCOUNTER: Initial ACUITY: 2 day PAIN SCORE: 0/10 LOCATION: cranial TECHNIQUE: Multiplanar, multisequence MRI of the brain was performed both prior to and following the administrat ion of paramagnetic contrast. FINDINGS: CEREBRUM: The ventricles are prominent consistent with atrophy. No evidence of midline shift, mass lesion, hem orrhage or acute infarction. No extraaxial fluid collections are seen. The pituitary gland and supr asellar cistern are normal in configuration. WHITE MATTER: Scattered foci of bright T2 signal abnormalities are seen in the white matter. POSTERIOR FOSSA: The cerebellum and brainstem are intact. The 4th ventricle is midline. The cerebellopontine angle is unremarkable. The cerebellar tonsils are normal in position. DIFFUSION IMAGING: No focal areas of restricted diffusion are seen. No evidence of acute infarction. EXTRACRANIAL: The visualized portions of the orbits and paranasal sinuses are unremarkable. POST-CONTRAST: No abnormal areas of parenchymal or dural enhancement. No evidence of blood-brain barrier breakdown. CONCLUSION: 1. Cerebral atrophy and chronic ischemic small vessel vasculopathy. 2. No acute intracranial abnormality. Denis Solomon MD on August 13, 2016 at 16:22 Board Certified Radiologist. This report was verified electronically.
[2016-08-13] MEDS ORDERED: risperiDONE 0.5 MG TAB PO ONE (17:00)
[2016-08-13] MEDS: SODIUM CHLOR 0.45% 1000 ML INJ 1,000 ML IV SCH (18:02)
[2016-08-13] MEDS: ENOXAPARIN SODIUM 30 MG/0.3 ML SYRINGE SQ SCH (18:07)
[2016-08-13 20:00] VITALS: BP 143/70; PULSE 97; RESP 16; TEMP 96.4; O2SAT 96
--- NOTE | 2016-08-13 20:53 | HHI.NSPN ---
History Chief Complaint: back pain Interval History 80-year-old female with history of T12 compression fracture, previously a anterior wedge compression noted on previous imaging from July 2016. Now more recently with progression of the fracture with moderate retropulsion into the canal and anterior cord compression without edema. Lower extremity neurologic examination has been thus far normal during this hospitalization. 08/13/16: Patient discussed with her son in the room today. He is concerned regarding confusion which has in the past been thought to be related to medication. Exam Results Vital Signs Date Time Temp Pulse Resp B/P Pulse Ox O2 Delivery O2 Flow Rate FiO2 08/13/16 20:00 96.4 97 16 143/70 96 08/12/16 15:06 Room Air Intake and Output 08/12/16 08/12/16 08/13/16 08:00 16:00 00:00 Intake Total 120 ml Output Total 300 ml 225 ml Balance -300 ml -105 ml Physical Examination Respirations are clear and nonlabored She is awake and alert Mild to moderate confusion. Her speech is clear Extraocular movements intact Facial motor movement symmetric Sensation intact light touch all extremities Strength is within normal limits major flexion and extension groups in the upper and lower extremities No ankle clonus Lab, Micro, Other Results Laboratory Tests Test 08/13/16 08/13/16 06:08 12:30 White Blood Count 10.6 TH/MM3 Red Blood Count 4.18 MIL/MM3 Hemoglobin 13.2 GM/DL Hematocrit 39.8 % Mean Corpuscular Volume 95.4 FL Mean Corpuscular Hemoglobin 31.7 PG Mean Corpuscular Hemoglobin 33.2 % Concent Red Cell Distribution Width 13.7 % Platelet Count 295 TH/MM3 Mean Platelet Volume 9.3 FL Neutrophils (%) (Auto) 72.8 % Lymphocytes (%) (Auto) 13.3 % Monocytes (%) (Auto) 8.8 % Eosinophils (%) (Auto) 3.9 % Basophils (%) (Auto) 1.2 % Neutrophils # (Auto) 7.7 TH/MM3 Lymphocytes # (Auto) 1.4 TH/MM3 Monocytes # (Auto) 0.9 TH/MM3 Eosinophils # (Auto) 0.4 TH/MM3 Basophils # (Auto) 0.1 TH/MM3 CBC Comment DIFF FINAL Differential Comment Erythrocyte Sedimentation Rate 28 mm/hr Sodium Level 141 MEQ/L Potassium Level 4.2 MEQ/L Chloride Level 104 MEQ/L Carbon Dioxide Level 29.8 MEQ/L Anion Gap 7 MEQ/L Blood Urea Nitrogen 18 MG/DL Creatinine 0.62 MG/DL Estimat Glomerular Filtration 92 ML/MIN Rate Random Glucose 88 MG/DL Calcium Level 9.1 MG/DL Total Bilirubin 0.5 MG/DL Aspartate Amino Transf 30 U/L (AST/SGOT) Alanine Aminotransferase 31 U/L (ALT/SGPT) Alkaline Phosphatase 103 U/L Total Protein 6.6 GM/DL Albumin 2.9 GM/DL Vitamin B12 Level 1212 PG/ML Thyroid Stimulating Hormone 1.640 uIU/ML 3rd Gen Prealbumin 23 MG/DL 08/13/16 MRI brain images reviewed by the undersigned. Agree with findings as noted below: Brain MRI 08/13/16 0000 Signed Impressions: Service Date/Time: Saturday, August 13, 2016 15:46 - CONCLUSION: 1. Cerebral atrophy and chronic ischemic small vessel vasculopathy. 2. No acute intracranial abnormality. Denis Solomon MD Medical Decision Making Impression and Plan Impression: 1. Progression of T12 fracture with moderate canal compromise. Neurologic exam of the lower extremities remained stable without deficit. 2. Chronic sacral decubitus ulcerations. 3. Increased confusion over the past couple of days according to the patient's family. Plan: Findings were discussed at length with the patient's son in the room today. He is concerned regarding the narcotics that the patient is on and states that these previously, significant confusion when she was in the [facility] with a prior episode of back pain. We will decrease her dose of Tylenol with codeine and had a trial of tramadol which the patient son states she previously tolerated. She has been started on Risperdal. It is likely that she has a underlying component of dementia contributing to her confusion. MRI 08/13/16 images reviewed. No acute abnormality. She will likely not tolerate a full TLSO brace. She has very poor muscle mass and very friable skin. I will try her in a LSO brace when mobilized out of bed. Todd Ferrer MD Aug 13, 2016 20:53
[2016-08-13] MEDS ORDERED: traMADol HCL 50 MG TAB PO PRN (21:00)
[2016-08-13] MEDS: risperiDONE 0.5 MG TAB PO SCH (21:34)
[2016-08-13] MEDS ORDERED: ACETAMINOPHEN/CODEINE 300 MG/30 MG TAB PO PRN (22:00)
[2016-08-14] MEDS: SODIUM CHLOR 0.45% 1000 ML INJ 1,000 ML IV SCH (05:30)
[2016-08-14 08:00] VITALS: BP 126/61; PULSE 82; RESP 19; TEMP 95.4; O2SAT 97
--- NOTE | 2016-08-14 08:32 | HHI.PR ---
Subjective Remarks pt confused this am has not had pain med since early yesterday having known this patient over the years I believe this confusion may be a continuation of underling dementia and anxiety and less a result of meds nevertheless we will attempt to reduce her narcotic load Objective Vital Signs Date Time Temp Pulse Resp B/P Pulse Ox O2 Delivery O2 Flow Rate FiO2 08/13/16 20:00 96.4 97 16 143/70 96 08/13/16 16:00 96.9 91 18 134/65 99 08/13/16 12:10 97.0 100 18 157/80 98 08/13/16 09:11 16 I/O 08/13/16 08/13/16 08/13/16 08/14/16 08/14/16 08/14/16 07:00 15:00 23:00 07:00 15:00 23:00 Intake Total 50 ml 910 ml 120 ml Output Total 100 ml Balance -50 ml 910 ml 120 ml Intake Oral 50 ml 360 ml 120 ml IV Total 550 ml Output Urine Total 100 ml # Voids 0 1 # Bowel Movements 0 0 0 Result Diagram: 08/13/16 0608 08/13/16 0608 Objective Remarks GENERAL: SKIN: Warm and dry.open area coccyx HEAD: Atraumatic. Normocephalic. EYES: Pupils equal and round. No scleral icterus. No injection or drainage. ENT: No nasal bleeding or discharge. Mucous membranes pink and moist. NECK: Trachea midline. No JVD. CARDIOVASCULAR: Regular rate and rhythm. RESPIRATORY: No accessory muscle use. Clear to auscultation. Breath sounds equal bilaterally. GASTROINTESTINAL: Abdomen soft, non-tender, nondistended. Hepatic and splenic margins not palpable. MUSCULOSKELETAL: Extremities intact frail NEUROLOGICAL: Awake and alert. No obvious cranial nerve deficits. Motor grossly within normal limits. Normal speech. PSYCHIATRIC: Appropriate mood and affect; anxiousand more confused than yesterday Medications and IVs Inpatient Medications Acetaminophen (Tylenol) 650 mg Q4H PRN PO TEMP > 100.4; Start 08/12/16 at 14:45 Acetaminophen/ Codeine Phosphate (Tylenol-Codeine #3) 1 tab Q4H PRN PO PAIN SCALE 6 TO 10; Start 08/13/16 at 22:00 Aspirin (Ecotrin Ec) 81 mg DAILY PO Last administered on 08/13/16t 08:10; Start 08/13/16 at 09:00 Bisacodyl (Dulcolax Supp) 10 mg DAILY PRN RECTAL SEVERE CONSITIPATION; Start at 11:00 Calcium Gluconate (Calcium Gluconate) 1,000 mg DAILY PO ; Start 08/14/16 at 09:00 Cholecalciferol (Vitamin D3) 5,000 units DAILY PO ; Start 08/14/16 at 09:00 Cyanocobalamin (Vitamin B12) 2,500 mcg DAILY PO Last administered on 08/13/16 08:11; Start 08/13/16 at 09:00 Enoxaparin Sodium (Lovenox Inj) 30 mg Q24H SQ Last administered on 08/13/16 18: 07; Start 08/12/16 at 17:00 Famotidine (Pepcid) 20 mg BID PO Last administered on 08/13/16 21:34; Start 08/12/16 at 21:00 Ketorolac Tromethamine (Toradol Inj) 30 mg ONCE ONCE IV PUSH Last administered on 08/12/16 09:45; Start 08/12/16 at 09:45; Stop 08/12/16 at 09:46; Status DC Lactulose (Lactulose Liq) 30 ml DAILY PRN PO SEVERE CONSITIPATION Last administered on 08/13/16 21:35; Start 08/13/16 at 11:00 Lorazepam (Ativan Inj) 1 mg Q4H PRN IV PUSH MODERATE TO SEVERE ANXIETY Last administered on 08/13/16 08:12; Start 08/12/16 at 15:30 Magnesium Hydroxide (Milk Of Magnesia Liq) 30 ml Q12H PRN PO MILD - MODERATE CONSTIPATION; Start 08/13/16 at 11:00 Metoprolol Succinate (Toprol Xl) 25 mg ONCE ONCE PO Last administered on 20:13; Start 08/12/16 at 19:45; Stop 08/12/16 at 19:46; Status DC Morphine Sulfate (Morphine Inj) 2 mg ONCE ONCE IV PUSH Last administered on 09:35; Start 08/12/16 at 09:30; Stop 08/12/16 at 09:31; Status DC Multivitamins (Theragran) 1 tab DAILY PO Last administered on 08/13/16 08:10; Start 08/13/16 at 09:00 Naloxone HCl (Narcan Inj) 0.4 mg UNSCH PRN IV SEE LABEL COMMENTS; Start at 14:45 Ondansetron HCl (Zofran Inj) 4 mg Q6H PRN IVP NAUSEA OR VOMITING; Start at 14:45 Paroxetine HCl (Paxil Cr) 25 mg DAILY PO Last administered on 08/13/16 08:10; Start 08/13/16 at 09:00 Risperidone (risperDAL) 0.5 mg NOW ONCE PO Last administered on 08/13/16 18:02 ; Start 08/13/16 at 17:00; Stop 08/13/16 at 17:01; Status DC Risperidone 0.5 mg 0.5 mg BID PO Last administered on 08/13/16 21:34; Start 08/14/16 at 09:00 Senna/Docusate Sodium (Leonor-Colace) 1 tab BID PO Last administered on 08/13/16 21:34; Start 08/13/16 at 21:00 Sennosides (Senokot) 17.2 mg Q12H PRN PO MODERATE - SEVERE CONSTIPATION; Start 08/12/16 at 14:45 Sodium Chloride (1/2 NS 1000 ml Inj) 1,000 ml @ 80 mls/hr [id number] IV Last administered on 08/13/16 18:02; Start 08/13/16 at 17:00 Sodium Chloride (NS Flush) 2 ml BID IV FLUSH Last administered on 08/13/16 08: 11; Start 08/12/16 at 21:00 Tramadol HCl (Ultram) 50 mg Q6H PRN PO PAIN SCALE 6 TO 10; Start 08/13/16 at 21: 00 Assessment and Plan Problem List: (1) Arthralgia of hip Status: Acute Plan: pain controlled with tylenol 3 (2) Parkinsonism Status: Acute Plan: consult neuro (3) Hypertension Status: Chronic Plan: stable on metoprolol (4) Unable to ambulate Status: Acute Plan: neurosurgical consult will treat conservatively for now (5) Weakness Status: Acute Plan: pt eval rx may be oob with brace Assessment and Plan bilateral hip pain anxiety Discussed Condition With nursing may be oob with assist and brace Problem Qualifiers (1) Arthralgia of hip: Qualified Code: M25.551 - Pain of both hip joints Tyrell Forbes DO Aug 14, 2016 08:31
[2016-08-14] MEDS: DOCUSATE SODIUM 50 MG/SENNA 8.6 MG TAB PO SCH (09:00)
[2016-08-14] MEDS: SODIUM CHLORIDE 0.9% FLUSH 10 ML FLUSH IV FLUSH SCH ×2 (09:00→21:00)
[2016-08-14] MEDS: ASPIRIN EC 81 MG TABEC PO SCH (09:49)
[2016-08-14] MEDS: CHOLECALCIFEROL (VIT D3) 5000 UNIT CAP PO SCH (09:50)
[2016-08-14] MEDS: CYANOCOBALAMIN 1,000 MCG TAB PO SCH (09:50)
[2016-08-14] MEDS: MULTIVITAMIN TAB PO SCH (09:50)
[2016-08-14] MEDS: FAMOTIDINE 20 MG TAB PO SCH ×2 (09:50→21:59)
[2016-08-14] MEDS: PARoxetine 25 MG CONTROLLED RELEASE TAB PO SCH (09:50)
[2016-08-14] MEDS: risperiDONE 0.5 MG TAB PO SCH ×2 (09:50→21:59)
[2016-08-14] MEDS: CALCIUM GLUCONATE 500 MG TAB PO SCH (09:50)
[2016-08-14] MEDS: METOPROLOL SUCCINATE 25 MG EXTENDED RELEASE TAB PO SCH ×2 (10:59→21:59)
[2016-08-14 12:00] VITALS: BP 169/74; PULSE 97; RESP 18; TEMP 95.6; O2SAT 96
--- NOTE | 2016-08-14 12:57 | HHI.PR ---
Review/Management Diagnosis parkinsonism and dementia Plan If falls persist would try requip 0.25 mg tid Diagnosis/Plan: Subjective Subjective Comments No acute events reported Active Medications Current Medications Medications (Trade) Dose Ordered Sig/Leeanna Route Start Time Stop Time Status Last Admin (NS Flush) 2 ml UNSCH PRN IV FLUSH 08/12/16 14:45 (NS Flush) 2 ml BID IV FLUSH 08/12/16 21:00 08/13/16 08:11 (Tylenol) 650 mg Q4H PRN PO 08/12/16 14:45 (Zofran Inj) 4 mg Q6H PRN IVP 08/12/16 14:45 (Lovenox Inj) 30 mg Q24H SQ 08/12/16 17:00 08/13/16 18:07 (Narcan Inj) 0.4 mg UNSCH PRN IV 08/12/16 14:45 (Senokot) 17.2 mg Q12H PRN PO 08/12/16 14:45 (Ecotrin Ec) 81 mg DAILY PO 08/13/16 09:00 08/14/16 09:49 (Toprol Xl) 25 mg BID PO 08/12/16 21:00 08/14/16 10:59 (Vitamin B12) 2,500 mcg DAILY PO 08/13/16 09:00 08/14/16 09:50 (Theragran) 1 tab DAILY PO 08/13/16 09:00 08/14/16 09:50 (Pepcid) 20 mg BID PO 08/12/16 21:00 08/14/16 09:50 (Ativan Inj) 1 mg Q4H PRN IV PUSH 08/12/16 15:30 08/13/16 08:12 (Paxil Cr) 25 mg DAILY PO 08/13/16 09:00 08/14/16 09:50 (Leonor-Colace) 1 tab BID PO 08/13/16 21:00 08/13/16 21:34 (Milk Of Magnesia Liq) 30 ml Q12H PRN PO 08/13/16 11:00 (Dulcolax Supp) 10 mg DAILY PRN RECTAL 08/13/16 11:00 (Lactulose Liq) 30 ml DAILY PRN PO 08/13/16 11:00 08/13/16 21:35 (Vitamin D3) 5,000 units DAILY PO 08/14/16 09:00 08/14/16 09:50 (Calcium Gluconate) 1,000 mg DAILY PO 08/14/16 09:00 08/14/16 09:50 Risperidone 0.5 mg 0.5 mg BID PO 08/14/16 09:00 08/14/16 09:50 (1/2 NS 1000 ml Inj) 1,000 ml @ 80 mls/hr [id number] IV 08/13/16 17:00 08/13/16 18:02 (Tylenol-Codeine #3) 1 tab Q4H PRN PO 08/13/16 22:00 (Ultram) 50 mg Q6H PRN PO 08/13/16 21:00 Allergies Allergies Coded Allergies Ambien (Verified Allergy, Severe, made her go crazy, 08/12/16) Plavix (Verified Allergy, Mild, 08/12/16) PEANUTS (Verified Allergy, Unknown, Swelling, 08/12/16) Wynona (Verified Allergy, Unknown, Swelling, 08/12/16) Uncoded Allergies Wine ( Allergy, Intermediate, Rash, 05/24/16) Review of Systems All other ROS: ROS reviewed as documented in chart Exam I&O / VS 08/13/16 08/13/16 08/14/16 15:00 23:00 07:00 Intake Total 910 ml 120 ml Balance 910 ml 120 ml Intake Oral 360 ml 120 ml IV Total 550 ml # Voids 0 1 # Bowel Movements 0 0 Vital Signs Date Time Temp Pulse Resp B/P Pulse Ox O2 Delivery O2 Flow Rate FiO2 08/14/16 08:00 95.4 82 19 126/61 97 08/13/16 20:00 96.4 97 16 143/70 96 08/13/16 16:00 96.9 91 18 134/65 99 General: No acute distress Eye: EOMI Respiratory: Lungs CTA, Non-labored respirations, BS equal Cardiology: Normal rate, Regular Rhythm Neurologic: Alert, Oriented, Normal sensory, CN II-XII intact Psychiatric: Cooperative, Appropriate mood & affect, Normal judgement Exam Comments ALERT, FOLLOW COMMANDS CN INTACT MOTOR 5/5 BUE AND BLE Objective Radiology Results MRI brain--atrophy , no posterior fossa lesion Micro and Labs vitamin B12 normal TSH normal Kashif Jon PhD MD Aug 14, 2016 12:57
--- NOTE | 2016-08-14 13:28 | MB ---
cc: GINGER ALEX M.D. DATE OF CONSULTATION: 08/14/2016 REASON FOR CONSULTATION: Parkinson's. HISTORY OF PRESENT ILLNESS Ms. De La Torre is an 80-year-old woman admitted to the hospital with difficulty with hip pain and low back pain and difficulty ambulating. She also has been very confused and disoriented. Apparently she had a history of balance difficulty with falling as well as progressive lumbar pain. The patient had an MRI of the lumbar spine showing compression fracture at T12 with retropulsion causing moderate to severe canal stenosis. She was evaluated by Dr. Todd Ferrer from the neurosurgical service who felt that she is a poor candidate for surgical intervention. PAST MEDICAL HISTORY: 1. History of coronary artery disease. 2. Previous CA. 3. Parkinson's disease. 4. Arthritis. 5. Hypertension. 6. Dyslipidemia. 7. Hysterectomy. 8. Bilateral knee arthroplastic surgery. 9. Carotid endarterectomy. 10. Cardiac stents. MEDICATIONS AT HOME: 1. Tylenol. 2. Multivitamin. 3. Vitamin B12. 4. Aspirin 81 milligrams. 5. Metoprolol. NEUROLOGICAL EXAMINATION: VITAL SIGNS: Blood pressure 157/80, pulse is 100, respiratory rate 18. Temperature 97 degrees. Higher cortical functions, she is alert, disoriented to date and place, very confused. She recalls 0/3 objects in three minutes, remote memory is poor. Cranial nerves are normal. On motor exam, she has mild bradykinesia. She has normal strength in the upper and lower extremities at 5/5. She has a mild tremor but mainly sustention tremor. Reflexes are 2+ symmetric. IMAGING STUDIES: CT of the brain shows atrophy, no acute process identified. MRI of the lumbar spine is as noted above. LABORATORY DATA: White count is 10,600. Hemoglobin 13.2, hematocrit 39.8%, platelet count 295,000. ESR is 28. Sodium is 141, potassium 4.2, chloride 104, CO2 29.8, BUN is 18, creatinine 0.62. GFR 92, glucose 88. AST 30, ALT 31. IMPRESSION: The patient has evidence of a significant dementia. She does have some extrapyramidal features on exam. It is difficult to say whether this is primary Parkinson's disease but I suspect that this is probably a Parkinson's dementia complex, possibly a Lewy body dementia. I would expect the responsiveness of her gait to not be high to dopaminergic agent. RECOMMENDATIONS: I would like to proceed with MRI of the brain to rule out any other etiology of ataxia. Will check labs including a B12 level and a thyroid panel. In the future if she continues with gait difficulty, would institute a trial of low dose Requip or Miripex, however, I think the chance of this exacerbating her confusion would be greater than the chance of it helping her gait. MD LARRY Das/CHIQUIS /12:56 PM /1:23 PM
--- NOTE | 2016-08-14 13:54 | HHI.NSPN ---
History Chief Complaint: back pain Interval History 80-year-old female with history of T12 compression fracture, previously a anterior wedge compression noted on previous imaging from July 2016. Now more recently with progression of the fracture with moderate retropulsion into the canal and anterior cord compression without edema. Lower extremity neurologic examination has been thus far normal during this hospitalization. 08/13/16: Patient discussed with her son in the room today. He is concerned regarding confusion which has in the past been thought to be related to medication. Exam Results Vital Signs Date Time Temp Pulse Resp B/P Pulse Ox O2 Delivery O2 Flow Rate FiO2 08/14/16 12:00 95.6 97 18 169/74 96 08/12/16 15:06 Room Air Intake and Output 08/13/16 08/13/16 08/14/16 08:00 16:00 00:00 Intake Total 50 ml 910 ml Output Total 100 ml Balance -50 ml 910 ml Physical Examination Respirations are clear and nonlabored She is awake and alert Patient appears somewhat more confused today compared to 08/13/16. She does not know where she is. She thinks her is nearby, but nursing staff states that he has not been yet today. Her speech is clear. Moderate slowing of thought processes. Extraocular movements intact Facial motor movement symmetric Sensation intact light touch all extremities Strength is within normal limits major flexion and extension groups in the upper and lower extremities No ankle clonus Medical Decision Making Impression and Plan Impression: 1. Progression of T12 fracture with moderate canal compromise. Neurologic exam of the lower extremities remained stable without deficit. 2. Chronic sacral decubitus ulcerations. 3. Patient appears to have increasing confusion over the past 2-3 days. Does not appear to be primarily medication related. Plan: Continuing physical therapy, mobilized out of bed as tolerated with LSO brace. No surgical intervention anticipated at the present time due to the patient's poor overall medical condition and mental status as well as presence of sacral skin ulcerations and continued intact lower extremity neurologic function. She is stable for discharge to [facility] facility or inpatient rehabilitation. Todd Ferrer MD Aug 14, 2016 13:54
[2016-08-14] MEDS: DEXT 5%-NACL 0.45% 1000 ML INJ 1,000 ML IV SCH (15:36)
[2016-08-14 16:00] VITALS: BP 158/74; PULSE 82; RESP 17; TEMP 95.5; O2SAT 99
--- NOTE | 2016-08-14 16:41 | RADRPT ---
EXAM DATE/TIME: 08/14/2016 16:13 [facility] COMPARISON: CT BRAIN W/O CONTRAST, August 12, 2016, 12:19. INDICATIONS : Altered mental status. RADIATION DOSE: 42.98 CTDIvol (mGy) MEDICAL HISTORY : Cardiovascular disease. Hypertension. SURGICAL HISTORY : CABG Hysterectomy. ENCOUNTER: Initial ACUITY: 1 day PAIN SCALE: 0/10 LOCATION: cranial TECHNIQUE: Multiple contiguous axial images were obtained of the head. Using automated exposure control and adj ustment of the mA and/or kV according to patient size, radiation dose was kept as low as reasonably a chievable to obtain optimal diagnostic quality images. DICOM format image data is available electro nically for review and comparison. FINDINGS: CEREBRUM: Ventricles are prominent but stable. I believe the ventricular prominence is out of proportion to deg ree of cortical atrophy. 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 Periventricular areas of diminished attenuation are characteristic of some degree of small vessel isc hemic demyelination. No evidence of midline shift, mass lesion, hemorrhage or acute infarction. No extra-axial fluid collections are seen. POSTERIOR FOSSA: The cerebellum and brainstem are intact. The 4th ventricle is midline. The cerebellopontine angle i s unremarkable. EXTRACRANIAL: The visualized portion of the orbits is intact. SKULL: The calvaria is intact. No evidence of skull fracture. CONCLUSION: 1. 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 2. There is some ventricular prominence which I believe is out of proportion to the degree of cortica l atrophy. In the appropriate clinical setting, findings could represent normal pressure hydrocephalu s. 3. Nothing acute. Dontrell Villasenor MD on August 14, 2016 at 16:37 Board Certified Radiologist. This report was verified electronically.
[2016-08-14] MEDS: DIPHENOXYLATE/ATROPINE 2.5 MG/0.025 MG TAB PO PRN (17:22)
[2016-08-14] MEDS: LACTOBACILLUS ACIDOPHILUS TAB PO SCH (17:22)
[2016-08-14] MEDS: ENOXAPARIN SODIUM 30 MG/0.3 ML SYRINGE SQ SCH (17:23)
[2016-08-14 20:50] VITALS: BP 162/76; PULSE 90; RESP 16; TEMP 96; O2SAT 98
[2016-08-15 00:23] VITALS: BP 129/68; PULSE 80; RESP 16; TEMP 96.8; O2SAT 98
[2016-08-15] MEDS: DEXT 5%-NACL 0.45% 1000 ML INJ 1,000 ML IV SCH ×3 (01:30→22:08)
[2016-08-15] MEDS: LACTOBACILLUS ACIDOPHILUS TAB PO SCH ×2 (04:28→16:41)
[2016-08-15 04:55] VITALS: BP 172/78; PULSE 76; RESP 16; TEMP 95.8; O2SAT 99
[2016-08-15] MEDS: METOPROLOL SUCCINATE 25 MG EXTENDED RELEASE TAB PO SCH ×2 (07:54→22:08)
[2016-08-15] MEDS: PARoxetine 25 MG CONTROLLED RELEASE TAB PO SCH (07:54)
[2016-08-15] MEDS: risperiDONE 0.5 MG TAB PO SCH ×2 (07:54→22:08)
[2016-08-15] MEDS: ASPIRIN EC 81 MG TABEC PO SCH (07:54)
[2016-08-15] MEDS: CHOLECALCIFEROL (VIT D3) 5000 UNIT CAP PO SCH (07:54)
[2016-08-15] MEDS: FAMOTIDINE 20 MG TAB PO SCH ×2 (07:55→22:08)
[2016-08-15] MEDS: MULTIVITAMIN TAB PO SCH (07:55)
[2016-08-15] MEDS: SODIUM CHLORIDE 0.9% FLUSH 10 ML FLUSH IV FLUSH SCH ×2 (07:55→22:08)
[2016-08-15] MEDS: CALCIUM GLUCONATE 500 MG TAB PO SCH (07:55)
[2016-08-15] MEDS: CYANOCOBALAMIN 1,000 MCG TAB PO SCH (07:55)
[2016-08-15 07:58] LABS: AUTOMATED NEUTROPHIL # 8.9 TH/MM3 (1.8-7.7); BASOPHIL % 0.3 % (0.0-2.0); EOSINOPHIL # 0.2 TH/MM3 (0-0.4); EOSINOPHIL % 1.8 % (0.0-4.0); HEMATOCRIT 39.4 % (35.0-46.0); HEMO FLAGS DIFF FINAL; LYMPH % 9.7 % (9.0-44.0); LYMPHOCYTE # 1.1 TH/MM3 (1.0-4.8); MEAN CELL VOLUME 96.8 FL (80.0-100.0); MEAN CORPUSCULAR HEMOGLOBIN 31.3 PG (27.0-34.0); MEAN CORPUSCULAR HGB CONC 32.3 % (32.0-36.0); MONO % 7.9 % (0.0-8.0); NEUT % 80.3 % (16.0-70.0); PLATELET COUNT 246 TH/MM3 (150-450); RED BLOOD COUNT 4.07 MIL/MM3 (4.00-5.30); RED CELL DISTRIBUTION WIDTH 13.8 % (11.6-17.2); WHITE BLOOD COUNT 11.1 TH/MM3 (4.0-11.0)
[2016-08-15 08:00] VITALS: BP 162/76; PULSE 76; RESP 17; TEMP 95.8; O2SAT 96
[2016-08-15 08:10] LABS: ALKALINE PHOSPHATASE 83 U/L (45-117); ALT (GPT) 26 U/L (10-53); ANION GAP 10 MEQ/L (5-15); AST (GOT) 30 U/L (15-37); BICARBONATE 24.7 MEQ/L (21.0-32.0); CHLORIDE 101 MEQ/L (98-107); FREE T3 2.16 PG/ML (2.18-3.98); GLOMERULAR FILTRATION RATE 134 ML/MIN (>89); SODIUM (NA) 136 MEQ/L (136-145); TOTAL BILIRUBIN ADULT 0.4 MG/DL (0.2-1.0)
[2016-08-15 08:19] LABS: BLOOD UREA NITROGEN 10 MG/DL (7-18)
--- NOTE | 2016-08-15 08:30 | HHI.PR ---
Subjective Remarks Patient is oriented to self. Denies any CP or SOB. Son at bedside Objective Vital Signs Date Time Temp Pulse Resp B/P Pulse Ox O2 Delivery O2 Flow Rate FiO2 08/15/16 04:55 95.8 76 16 172/78 99 08/15/16 00:23 96.8 80 16 129/68 98 08/14/16 20:50 96.0 90 16 162/76 98 08/14/16 16:00 95.5 82 17 158/74 99 08/14/16 12:00 95.6 97 18 169/74 96 I/O 08/14/16 08/14/16 08/14/16 08/15/16 08/15/16 08/15/16 07:00 15:00 23:00 07:00 15:00 23:00 Intake Total 120 ml 480 ml 670 ml 710 ml Balance 120 ml 480 ml 670 ml 710 ml Intake Oral 120 ml 480 ml IV Total 670 ml 710 ml # Voids 1 4 1 2 # Bowel Movements 0 6 1 1 Result Diagram: 08/15/16 0720 08/13/16 0608 Imaging Last [address] 08/14/16 0000 Signed Impressions: Service Date/Time: Sunday, August 14, 2016 16:13 - CONCLUSION: 1. 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 2. There is some ventricular prominence which I believe is out of proportion to the degree of cortical atrophy. In the appropriate clinical setting, findings could represent normal pressure hydrocephalus. 3. Nothing acute. Dontrell Villasenor MD Brain MRI 08/13/16 0000 Signed Impressions: Service Date/Time: Saturday, August 13, 2016 15:46 - CONCLUSION: 1. Cerebral atrophy and chronic ischemic small vessel vasculopathy. 2. No acute intracranial abnormality. Denis Solomon MD Head CT 08/12/16 1136 Signed Impressions: Service Date/Time: Friday, August 12, 2016 12:19 - CONCLUSION: Central and cortical atrophy otherwise negative for an acute process.. Massimo Barrios MD FA[facility] Hip and Pelvis X-Ray 08/12/16 0930 Signed Impressions: Service Date/Time: Friday, August 12, 2016 10:03 - CONCLUSION: 1. No acute fracture or joint dislocation. 2. Old healed fractures involving the left superior and inferior pubic rami. Cosme Hernandez MD Hip X-Ray 08/12/16 0930 Signed Impressions: Service Date/Time: Friday, August 12, 2016 10:03 - CONCLUSION: 1. 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 Cosme Hernandez MD Other Results GENERAL: Alert oriented to self speech delayed SKIN: Warm and dry. HEAD: Normocephalic. EYES: No scleral icterus. No injection or drainage. NECK: Supple, trachea midline. No JVD or lymphadenopathy. CARDIOVASCULAR: Regular rate and rhythm without murmurs, gallops, or rubs. RESPIRATORY: Breath sounds equal bilaterally. No accessory muscle use. GASTROINTESTINAL: Abdomen soft, non-tender, nondistended. MUSCULOSKELETAL: No cyanosis, or edema. BACK: Nontender without obvious deformity. No CVA tenderness. Medications and IVs Current Medications Medications (Trade) Dose Ordered Sig/Leeanna Route Start Time Stop Time Status Last Admin (NS Flush) 2 ml UNSCH PRN IV FLUSH 08/12/16 14:45 (NS Flush) 2 ml BID IV FLUSH 08/12/16 21:00 08/13/16 08:11 (Tylenol) 650 mg Q4H PRN PO 08/12/16 14:45 (Zofran Inj) 4 mg Q6H PRN IVP 08/12/16 14:45 (Lovenox Inj) 30 mg Q24H SQ 08/12/16 17:00 08/14/16 17:23 (Narcan Inj) 0.4 mg UNSCH PRN IV 08/12/16 14:45 (Senokot) 17.2 mg Q12H PRN PO 08/12/16 14:45 (Ecotrin Ec) 81 mg DAILY PO 08/13/16 09:00 08/15/16 07:54 (Toprol Xl) 25 mg BID PO 08/12/16 21:00 08/15/16 07:54 (Vitamin B12) 2,500 mcg DAILY PO 08/13/16 09:00 08/15/16 07:55 (Theragran) 1 tab DAILY PO 08/13/16 09:00 08/15/16 07:55 (Pepcid) 20 mg BID PO 08/12/16 21:00 08/15/16 07:55 (Ativan Inj) 1 mg Q4H PRN IV PUSH 08/12/16 15:30 08/13/16 08:12 (Paxil Cr) 25 mg DAILY PO 08/13/16 09:00 08/15/16 07:54 (Vitamin D3) 5,000 units DAILY PO 08/14/16 09:00 08/15/16 07:54 (Calcium Gluconate) 1,000 mg DAILY PO 08/14/16 09:00 08/15/16 07:55 (risperDAL) 0.5 mg BID PO 08/14/16 09:00 08/15/16 07:54 (Tylenol-Codeine #3) 1 tab Q4H PRN PO 08/13/16 22:00 (Ultram) 50 mg Q6H PRN PO 08/13/16 21:00 (Lomotil Tab) 1 tab TID PRN PO 08/14/16 15:30 08/14/16 17:22 Lactobacillus Acidophilus 1 tab 1 tab Q12H PO 08/14/16 16:00 08/15/16 04:28 (D5W-1/2 NS 1000 ml Inj) 1,000 ml @ 100 mls/hr Q10H IV 08/14/16 15:30 08/14/16 15:36 Assessment and Plan Problem List: (1) T12 compression fracture Status: Acute Plan: Neurosurgery consulted. Continuing physical therapy, mobilized out of bed as tolerated with LSO brace. Per note. No surgical intervention anticipated at the present time due to the patient's poor overall medical condition and mental status as well as presence of sacral skin ulcerations and continued intact lower extremity neurologic function. (2) Hypertension Status: Chronic Plan: Blood pressure consistently elevated will add amlodipine. (3) Arthralgia of hip Status: Acute Plan: No reports of pain. (4) Parkinsonism Status: Acute Plan: Neurology consulted. MRI and head CT with no acute findings. Patient with significant dementia. (5) Pressure ulcer of coccygeal region, unstageable Status: Acute Plan: Wound care consulted 2 X 3 cm with 90% yellow slough. Santyl and daily wound care ordered. Air mattress ordered (6) Dysphagia Status: Acute Plan: Swallow eval ordered and pending Assessment and Plan Assessment and plan discussed with Dr. Forbes Discussed Condition With Nursing Discharge Planning SNF Physician Attestation I and the TRANSFER COORDINATOR have both examined this patient and reviewed this note and I agree with these findings and plan of care. Tyrell Forbes DO Problem Qualifiers (1) Arthralgia of hip: Qualified Code: M25.551 - Pain of both hip joints Ingrid Nieto [facility] Aug 15, 2016 08:30
[2016-08-15] MEDS: amLODIPine BESYLATE 5 MG TAB PO SCH (09:00)
[2016-08-15 12:00] VITALS: BP 149/65; PULSE 78; RESP 17; TEMP 95.6; O2SAT 98
--- NOTE | 2016-08-15 13:32 | PD.WCN.NOT ---
Wound Consult Description: L buttock, Coccyx and medial back Communicated with: IVÁN [place] and Ingrid MAJANO for Doctor Forbes Recommendation: Please cleanse wounds to medial back with normal saline and apply single layer of Xeroform gauze dressing over wound bed and cover with dry cover dressing. Apply skin prep before applying adhesives to skin.Please change dressing every other day or PRN if saturated or dislodged Please cleanse wound to coccyx with normal saline only and apply trini thick coverage of Santyl ointment to wound bed.Cover with slightly moistened Calcium alginate (Maxorb II) dressing . Apply skin prep to periwound and before Securing dressings with dry cover dressing and change daily . [place] DTI to L buttock with skin prep BID and leave open to air. Also recommend specialty mattress or bed and plastics sheet finishing press operator consult Additional Information: Patient seen on for evaluation of 2 open blisters on sacral area. Patient turned with assistance of keno writer / runner to R side and removed adhesive foam dressing to reveal unstageable wound to coccyx. Etiology of wound appears to be moisture, friction and pressure. Wound margins are jagged. Cleansed wound with normal saline. Wound noted with ~90% coverage of thin yellow slough and ~10 % pink tissue. Periwound is noted with maceration at 12 o'clock and is otherwise unremarkable. Wound is noted with scant serous drainage that and is without odor.Wound measurements are as follows: 2.1cm x 3cm x slough.Left wound open to air. Patient is also noted with non blanchable area of purple discoloration to L buttock indicating a deep tissue injury. DTI measures 2cm x 2 cm. Left DTI open to air. Peeled back bordered gauze dressing and Xeroform dressing in place on back to reveal 2 areas of partial thickness skin loss noted to medial back . Both wounds measures ~2 cm x ~2cm x ~<0.1 cm. Both wounds noted with scant serous drainage and no odor.Periwounds are unremarkable. Reapplied bordered gauze dressing back in place. Coccyx wound left open to air, patient is requesting to use the restroom and get cleaned up. Lowered bed to safe height before leaving room Ann Harrison [facility] Aug 15, 2016 13:32
[2016-08-15 16:00] VITALS: BP 158/72; PULSE 76; RESP 18; TEMP 98.6; O2SAT 97
[2016-08-15] MEDS: DIPHENOXYLATE/ATROPINE 2.5 MG/0.025 MG TAB PO PRN (16:41)
[2016-08-15] MEDS: ENOXAPARIN SODIUM 30 MG/0.3 ML SYRINGE SQ SCH (16:42)
[2016-08-15 19:00] VITALS: BP 162/79; PULSE 87; RESP 15; TEMP 98.6; O2SAT 98
[2016-08-16] VITALS: BP 158/83; PULSE 86; RESP 16; TEMP 96.8; O2SAT 97
[2016-08-16] MEDS: LACTOBACILLUS ACIDOPHILUS TAB PO SCH ×2 (04:35→17:31)
[2016-08-16] MEDS: DIPHENOXYLATE/ATROPINE 2.5 MG/0.025 MG TAB PO PRN (04:35)
[2016-08-16 06:36] LABS: HEMATOCRIT 36.8 % (35.0-46.0); MEAN CELL VOLUME 94.5 FL (80.0-100.0); MEAN CORPUSCULAR HEMOGLOBIN 31.4 PG (27.0-34.0); MEAN CORPUSCULAR HGB CONC 33.2 % (32.0-36.0); PLATELET COUNT 253 TH/MM3 (150-450); RED BLOOD COUNT 3.89 MIL/MM3 (4.00-5.30); RED CELL DISTRIBUTION WIDTH 13.1 % (11.6-17.2); REVIEW FLAG FINAL; WHITE BLOOD COUNT 15.3 TH/MM3 (4.0-11.0)
[2016-08-16 06:49] LABS: BICARBONATE 22.6 MEQ/L (21.0-32.0)
[2016-08-16 06:54] LABS: POTASSIUM 2.9 MEQ/L (3.5-5.1)
[2016-08-16 07:54] VITALS: BP 123/61; PULSE 65; RESP 20; TEMP 98.8; O2SAT 99
[2016-08-16] MEDS ORDERED: POTASSIUM CHLORIDE 20 MEQ CONTROLLED RELEASE TAB PO ONE ×2 (08:00→11:00)
[2016-08-16] MEDS: amLODIPine BESYLATE 5 MG TAB PO SCH (09:00)
--- NOTE | 2016-08-16 09:08 | HHI.PR ---
Subjective Remarks Patient is oriented to self. Denies any CP or SOB. Continues to have loose stools per nursing Objective Vital Signs Date Time Temp Pulse Resp B/P Pulse Ox O2 Delivery O2 Flow Rate FiO2 08/16/16 07:54 98.8 65 20 123/61 99 08/16/16 00:00 96.8 86 16 158/83 97 08/15/16 19:00 98.6 87 15 162/79 98 08/15/16 18:43 Room Air 08/15/16 16:00 98.6 76 18 158/72 97 08/15/16 12:00 95.6 78 17 149/65 98 I/O 08/15/16 08/15/16 08/15/16 08/16/16 08/16/16 08/16/16 07:00 15:00 23:00 07:00 15:00 23:00 Intake Total 710 ml 1825 ml 857 ml Balance 710 ml 1825 ml 857 ml Intake Oral 840 ml 200 ml IV Total 710 ml 985 ml 657 ml # Voids 2 8 3 # Bowel Movements 1 8 3 Result Diagram: 08/16/16 0552 08/16/16 0552 Imaging Last [address] 08/14/16 0000 Signed Impressions: Service Date/Time: Sunday, August 14, 2016 16:13 - CONCLUSION: 1. 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 2. There is some ventricular prominence which I believe is out of proportion to the degree of cortical atrophy. In the appropriate clinical setting, findings could represent normal pressure hydrocephalus. 3. Nothing acute. Dontrell Villasenor MD Objective Remarks GENERAL: No oriented SKIN: Warm and dry. Multiple wounds on arms and coccyx HEAD: Normocephalic. EYES: No scleral icterus. No injection or drainage. NECK: Supple, trachea midline. No JVD or lymphadenopathy. CARDIOVASCULAR: Regular rate and rhythm without murmurs, gallops, or rubs. RESPIRATORY: Breath sounds equal bilaterally. No accessory muscle use. GASTROINTESTINAL: Abdomen soft, non-tender, nondistended. MUSCULOSKELETAL: No cyanosis, or edema. BACK: Nontender without obvious deformity. No CVA tenderness. Medications and IVs Current Medications Medications (Trade) Dose Ordered Sig/Leeanna Route Start Time Stop Time Status Last Admin (NS Flush) 2 ml UNSCH PRN IV FLUSH 08/12/16 14:45 (NS Flush) 2 ml BID IV FLUSH 08/12/16 21:00 08/13/16 08:11 (Tylenol) 650 mg Q4H PRN PO 08/12/16 14:45 (Zofran Inj) 4 mg Q6H PRN IVP 08/12/16 14:45 (Lovenox Inj) 30 mg Q24H SQ 08/12/16 17:00 08/15/16 16:42 (Narcan Inj) 0.4 mg UNSCH PRN IV 08/12/16 14:45 (Ecotrin Ec) 81 mg DAILY PO 08/13/16 09:00 08/15/16 07:54 (Toprol Xl) 25 mg BID PO 08/12/16 21:00 08/15/16 22:08 (Vitamin B12) 2,500 mcg DAILY PO 08/13/16 09:00 08/15/16 07:55 (Theragran) 1 tab DAILY PO 08/13/16 09:00 08/15/16 07:55 (Pepcid) 20 mg BID PO 08/12/16 21:00 08/15/16 22:08 (Ativan Inj) 1 mg Q4H PRN IV PUSH 08/12/16 15:30 08/13/16 08:12 (Paxil Cr) 25 mg DAILY PO 08/13/16 09:00 08/15/16 07:54 (Vitamin D3) 5,000 units DAILY PO 08/14/16 09:00 08/15/16 07:54 (Calcium Gluconate) 1,000 mg DAILY PO 08/14/16 09:00 08/15/16 07:55 (risperDAL) 0.5 mg BID PO 08/14/16 09:00 08/15/16 22:08 (Tylenol-Codeine #3) 1 tab Q4H PRN PO 08/13/16 22:00 (Ultram) 50 mg Q6H PRN PO 08/13/16 21:00 (Lomotil Tab) 1 tab TID PRN PO 08/14/16 15:30 08/16/16 04:35 (Lactinex) 1 tab Q12H PO 08/14/16 16:00 08/16/16 04:35 (Norvasc) 5 mg DAILY PO 08/15/16 09:00 (Santyl Oint) 1 applic DAILY TOPICAL 08/16/16 09:00 (KCl) 20 meq ONCE ONCE PO 08/16/16 11:00 08/16/16 11:01 Assessment and Plan Problem List: (1) T12 compression fracture Status: Acute Plan: Neurosurgery consulted. Continuing physical therapy, mobilized out of bed as tolerated with LSO brace. Per note. No surgical intervention anticipated at the present time due to the patient's poor overall medical condition and mental status as well as presence of sacral skin ulcerations and continued intact lower extremity neurologic function. (2) Hypertension Status: Chronic Plan: Blood pressure 123/61 this am with the addition of norvasc (3) Arthralgia of hip Status: Acute Plan: No reports of pain. (4) Parkinsonism Status: Acute Plan: Neurology consulted. MRI and head CT with no acute findings. Patient with significant dementia. (5) Pressure ulcer of coccygeal region, unstageable Status: Acute Plan: Wound care consulted 2 X 3 cm with 90% yellow slough. Santyl and daily wound care ordered. Air mattress ordered (6) Dysphagia Status: Acute Plan: Swallow eval ordered and recommends purree diet with thin liquid. Dietary consult placed. Chest Xray ordered today with leukocytosis (7) Leukocytosis Status: Acute Plan: WBC up to 16.8 today. Chest Xray and UA ordered (8) Hypokalemia Status: Acute Plan: potassium 2.9 today. Replacement added with recheck in AM (9) Hyponatremia Status: Acute Plan: sodium 129 today. Will monitor and recheck in AM Assessment and Plan Assessment and plan discussed with Dr. Forbes Discussed Condition With Nursing Discharge Planning [facility] Physician Attestation I and the TREASURY CONSULTANT have both examined this patient and reviewed this note and I agree with these findings and plan of care. Tyrell Forbes DO Problem Qualifiers (1) Arthralgia of hip: Qualified Code: M25.551 - Pain of both hip joints Ingrid Nieto [facility] Aug 16, 2016 09:08
--- NOTE | 2016-08-16 09:34 | RADRPT ---
EXAM DATE/TIME: 08/16/2016 09:08 [place] COMPARISON: CHEST SINGLE AP, July 04, 2015, 17:55. INDICATIONS : Dysphagia. No chest complaints. MEDICAL HISTORY : Cardiovascular disease. Hypertension. SURGICAL HISTORY : Hysterectomy. ENCOUNTER: Subsequent ACUITY: 4 - 6 days PAIN SCORE: 0/10 LOCATION: Bilateral chest FINDINGS: Minimal left lower lobe airspace disease, slightly progressed from prior exam likely reflecting atele ctasis/scarring. Cardiomediastinal contours are stable. Remainder of the exam is unchanged. CONCLUSION: 1. Mild left lower lobe atelectasis/scarring. Dominick Walls MD on August 16, 2016 at 9:31 Board Certified Radiologist. This report was verified electronically.
[2016-08-16] MEDS: CALCIUM GLUCONATE 500 MG TAB PO SCH (10:26)
[2016-08-16] MEDS: PARoxetine 25 MG CONTROLLED RELEASE TAB PO SCH (10:26)
[2016-08-16] MEDS: CYANOCOBALAMIN 1,000 MCG TAB PO SCH (10:27)
[2016-08-16] MEDS: FAMOTIDINE 20 MG TAB PO SCH ×2 (10:27→23:13)
[2016-08-16] MEDS: SODIUM CHLORIDE 0.9% FLUSH 10 ML FLUSH IV FLUSH SCH ×2 (10:27→23:13)
[2016-08-16] MEDS: CHOLECALCIFEROL (VIT D3) 5000 UNIT CAP PO SCH (10:27)
[2016-08-16] MEDS: risperiDONE 0.5 MG TAB PO SCH ×2 (10:27→23:14)
[2016-08-16] MEDS: ASPIRIN EC 81 MG TABEC PO SCH (10:28)
[2016-08-16] MEDS: COLLAGENASE OINT 30 GM TUBE TOPICAL SCH (10:28)
[2016-08-16] MEDS: MULTIVITAMIN TAB PO SCH (10:28)
[2016-08-16] MEDS: METOPROLOL SUCCINATE 25 MG EXTENDED RELEASE TAB PO SCH ×2 (10:35→23:13)
[2016-08-16 12:00] VITALS: BP 99/55; PULSE 80; RESP 18; TEMP 96.4; O2SAT 98
--- NOTE | 2016-08-16 12:18 | HHI.NSPN ---
History Chief Complaint: back pain Interval History 80-year-old female with history of T12 compression fracture, previously a anterior wedge compression noted on previous imaging from July 2016. Now more recently with progression of the fracture with moderate retropulsion into the canal and anterior cord compression without edema. Lower extremity neurologic examination has been thus far normal during this hospitalization. 08/13/16: Patient discussed with her son in the room today. He is concerned regarding confusion which has in the past been thought to be related to medication. Exam Results Vital Signs Date Time Temp Pulse Resp B/P Pulse Ox O2 Delivery O2 Flow Rate FiO2 08/16/16 07:54 98.8 65 20 123/61 99 08/15/16 18:43 Room Air Intake and Output 08/15/16 08/15/16 08/16/16 08:00 16:00 00:00 Intake Total 710 ml 360 ml 1465 ml Balance 710 ml 360 ml 1465 ml Physical Examination Respirations are clear and nonlabored She is awake and alert She is sitting up in a chair today with the LSO brace. She appears resident relatively comfortable. Not really complaining of much pain. She continues to be at least moderately confused. She cannot tell me that she is in the hospital or the month. Her speech is clear. Moderate slowing of thought processes. Sensation intact light touch all extremities Strength is within normal limits major flexion and extension groups in the upper and lower extremities No ankle clonus Lab, Micro, Other Results 08/14/2016 follow-up CT scan head images reviewed by the undersigned. No evidence of acute CVA, intracranial hemorrhage. There is mild to moderate ventriculomegaly. However she does have significant overall atrophy. Laboratory Tests Test 08/16/16 05:52 White Blood Count 15.3 TH/MM3 Red Blood Count 3.89 MIL/MM3 Hemoglobin 12.2 GM/DL Hematocrit 36.8 % Mean Corpuscular Volume 94.5 FL Mean Corpuscular Hemoglobin 31.4 PG Mean Corpuscular Hemoglobin 33.2 % Concent Red Cell Distribution Width 13.1 % Platelet Count 253 TH/MM3 Mean Platelet Volume 8.9 FL Sodium Level 129 MEQ/L Potassium Level 2.9 MEQ/L Chloride Level 96 MEQ/L Carbon Dioxide Level 22.6 MEQ/L Anion Gap 10 MEQ/L Blood Urea Nitrogen 5 MG/DL Creatinine 0.36 MG/DL Estimat Glomerular Filtration 173 ML/MIN Rate Random Glucose 139 MG/DL Calcium Level 7.9 MG/DL Medical Decision Making Impression and Plan Impression: 1. Progression of T12 fracture with moderate canal compromise. Neurologic exam of the lower extremities remains stable without deficit. 2. Chronic sacral decubitus ulcerations. 3. Persisting confusion. No acute changes on brain MRI as well as CT scan head 2. Plan: Patient seems to be doing better in regards to her pain today. She is sitting up in a chair and not really complaining of very much pain. It is not felt that she has a obvious component of normal pressure hydrocephalus. Her confusion is not likely related to the ventriculomegaly. Continuing physical therapy, mobilized out of bed as tolerated with LSO brace. No surgical intervention anticipated at the present time due to the patient's poor overall medical condition and mental status as well as presence of sacral skin ulcerations and continued intact lower extremity neurologic function. She is stable for discharge to shelter facility or inpatient rehabilitation. Todd Ferrer MD Aug 16, 2016 12:18
[2016-08-16 16:00] VITALS: BP 107/73; PULSE 92; RESP 18; TEMP 97.5; O2SAT 99
[2016-08-16] MEDS: ENOXAPARIN SODIUM 30 MG/0.3 ML SYRINGE SQ SCH (17:31)
[2016-08-16 21:10] VITALS: BP 125/67; PULSE 95; RESP 17; TEMP 97.4; O2SAT 96
[2016-08-17] VITALS: BP_SYST 121; BP_SYST 149; BP_DIAS 68; BP_DIAS 73; PULSE 64; PULSE 84; RESP 17; TEMP 97.2; TEMP 97.8; O2SAT 93; O2SAT 95
[2016-08-17 04:20] VITALS: BP 140/79; PULSE 88; RESP 17; TEMP 97.1; O2SAT 98
[2016-08-17] MEDS: LACTOBACILLUS ACIDOPHILUS TAB PO SCH ×2 (04:25→16:37)
[2016-08-17 07:36] VITALS: BP 140/82; PULSE 86; RESP 18; TEMP 97.3; O2SAT 99
[2016-08-17 08:54] LABS: HEMATOCRIT 39.2 % (35.0-46.0); MEAN CELL VOLUME 94.8 FL (80.0-100.0); MEAN CORPUSCULAR HEMOGLOBIN 30.6 PG (27.0-34.0); MEAN CORPUSCULAR HGB CONC 32.3 % (32.0-36.0); PLATELET COUNT 303 TH/MM3 (150-450); RED BLOOD COUNT 4.14 MIL/MM3 (4.00-5.30); RED CELL DISTRIBUTION WIDTH 13.5 % (11.6-17.2); REVIEW FLAG FINAL
[2016-08-17 08:59] LABS: BICARBONATE 22.6 MEQ/L (21.0-32.0); POTASSIUM 3.7 MEQ/L (3.5-5.1)
[2016-08-17] MEDS: SODIUM CHLORIDE 0.9% FLUSH 10 ML FLUSH IV FLUSH SCH ×2 (09:00→22:29)
[2016-08-17] MEDS: CHOLECALCIFEROL (VIT D3) 5000 UNIT CAP PO SCH (09:00)
[2016-08-17] MEDS: COLLAGENASE OINT 30 GM TUBE TOPICAL SCH (09:00)
[2016-08-17] MEDS: CYANOCOBALAMIN 1,000 MCG TAB PO SCH (09:00)
[2016-08-17] MEDS: METOPROLOL SUCCINATE 25 MG EXTENDED RELEASE TAB PO SCH ×2 (09:00→22:29)
[2016-08-17] MEDS: CALCIUM GLUCONATE 500 MG TAB PO SCH (09:00)
[2016-08-17] MEDS: POTASSIUM CHLORIDE 20 MEQ CONTROLLED RELEASE TAB PO SCH ×2 (09:00→22:28)
[2016-08-17] MEDS: MULTIVITAMIN TAB PO SCH (09:00)
[2016-08-17] MEDS: PARoxetine 25 MG CONTROLLED RELEASE TAB PO SCH (09:00)
[2016-08-17] MEDS: risperiDONE 0.5 MG TAB PO SCH ×2 (09:00→22:28)
[2016-08-17] MEDS: FAMOTIDINE 20 MG TAB PO SCH ×2 (09:00→22:29)
[2016-08-17] MEDS: amLODIPine BESYLATE 5 MG TAB PO SCH (09:00)
[2016-08-17] MEDS: ASPIRIN EC 81 MG TABEC PO SCH (09:00)
[2016-08-17 12:00] VITALS: BP 144/66; PULSE 87; RESP 18; TEMP 97.4; O2SAT 94
--- NOTE | 2016-08-17 13:59 | HHI.PR ---
Subjective Remarks Patient is oriented to self. Denies any pain. OOB on Bedside commode. Objective Vital Signs Date Time Temp Pulse Resp B/P Pulse Ox O2 Delivery O2 Flow Rate FiO2 08/17/16 12:00 97.4 87 18 144/66 94 08/17/16 07:36 97.3 86 18 140/82 99 08/17/16 04:20 97.1 88 17 140/79 98 08/17/16 00:00 97.2 84 17 149/68 95 08/16/16 21:10 97.4 95 17 125/67 96 08/16/16 19:01 Room Air 08/16/16 16:00 97.5 92 18 107/73 99 I/O 08/16/16 08/16/16 08/16/16 08/17/16 08/17/16 08/17/16 07:00 15:00 23:00 07:00 15:00 23:00 Intake Total 857 ml 240 ml 60 ml 0 ml Balance 857 ml 240 ml 60 ml 0 ml Intake Oral 200 ml 240 ml 60 ml 0 ml IV Total 657 ml # Voids 3 2 3 3 # Bowel Movements 3 1 3 2 Result Diagram: 08/17/16 0826 08/17/16 0826 Imaging Last 72 hours Impressions Chest X-Ray 08/16/16 0000 Signed Impressions: Service Date/Time: Tuesday, August 16, 2016 09:08 - CONCLUSION: 1. Mild left lower lobe atelectasis/scarring. Dominick Walls MD Objective Remarks GENERAL: No oriented SKIN: Warm and dry. Multiple wounds on arms and coccyx HEAD: Normocephalic. EYES: No scleral icterus. No injection or drainage. NECK: Supple, trachea midline. No JVD or lymphadenopathy. CARDIOVASCULAR: Regular rate and rhythm without murmurs, gallops, or rubs. RESPIRATORY: Breath sounds equal bilaterally. No accessory muscle use. GASTROINTESTINAL: Abdomen soft, non-tender, nondistended. MUSCULOSKELETAL: No cyanosis, or edema. BACK: Nontender without obvious deformity. No CVA tenderness. Medications and IVs Current Medications Medications (Trade) Dose Ordered Sig/Leeanna Route Start Time Stop Time Status Last Admin (NS Flush) 2 ml UNSCH PRN IV FLUSH 08/12/16 14:45 (NS Flush) 2 ml BID IV FLUSH 08/12/16 21:00 08/17/16 09:00 (Tylenol) 650 mg Q4H PRN PO 08/12/16 14:45 (Zofran Inj) 4 mg Q6H PRN IVP 08/12/16 14:45 08/17/16 12:40 (Lovenox Inj) 30 mg Q24H SQ 08/12/16 17:00 08/16/16 17:31 (Narcan Inj) 0.4 mg UNSCH PRN IV 08/12/16 14:45 (Ecotrin Ec) 81 mg DAILY PO 08/13/16 09:00 08/17/16 09:00 (Toprol Xl) 25 mg BID PO 08/12/16 21:00 08/17/16 09:00 (Vitamin B12) 2,500 mcg DAILY PO 08/13/16 09:00 08/17/16 09:00 (Theragran) 1 tab DAILY PO 08/13/16 09:00 08/17/16 09:00 (Pepcid) 20 mg BID PO 08/12/16 21:00 08/17/16 09:00 (Ativan Inj) 1 mg Q4H PRN IV PUSH 08/12/16 15:30 08/13/16 08:12 (Paxil Cr) 25 mg DAILY PO 08/13/16 09:00 08/17/16 09:00 (Vitamin D3) 5,000 units DAILY PO 08/14/16 09:00 08/17/16 09:00 (Calcium Gluconate) 1,000 mg DAILY PO 08/14/16 09:00 08/17/16 09:00 (risperDAL) 0.5 mg BID PO 08/14/16 09:00 08/17/16 09:00 (Tylenol-Codeine #3) 1 tab Q4H PRN PO 08/13/16 22:00 (Ultram) 50 mg Q6H PRN PO 08/13/16 21:00 (Lomotil Tab) 1 tab TID PRN PO 08/14/16 15:30 08/16/16 04:35 (Lactinex) 1 tab Q12H PO 08/14/16 16:00 08/17/16 04:25 (Norvasc) 5 mg DAILY PO 08/15/16 09:00 08/17/16 09:00 (Santyl Oint) 1 applic DAILY TOPICAL 08/16/16 09:00 08/17/16 09:00 (KCl) 20 meq Q12HR PO 08/17/16 09:00 08/17/16 09:00 Assessment and Plan Problem List: (1) T12 compression fracture Status: Acute Plan: Neurosurgery consulted has cleared for discharge to skilled facility Continuing physical therapy, mobilized out of bed as tolerated with LSO brace. Patient continues to be weak, deconditioned, and fall risk. Pain medication as needed but with patients mental status needs to be used carefully Per note. No surgical intervention anticipated at the present time due to the patient's poor overall medical condition and mental status as well as presence of sacral skin ulcerations and continued intact lower extremity neurologic function. (2) Hypertension Status: Chronic Plan: Blood pressure 144/66. Continue amlodipine and metoprolol (3) Arthralgia of hip Status: Acute Plan: No reports of pain. Pain medication PRN (4) Parkinsonism Status: Acute Plan: Neurology consulted. MRI and head CT with no acute findings. Patient with significant dementia. (5) Pressure ulcer of coccygeal region, unstageable Status: Acute Plan: Wound care consulted 2 X 3 cm with 90% yellow slough. Santyl and daily wound care ordered. Air mattress (6) Dysphagia Status: Acute Plan: Swallow eval ordered and recommends purree diet with thin liquid. Dietary consult placed. Chest Xray ordered for leukocytosis atelectasis noted. IS ordered. (7) Leukocytosis Status: Acute Plan: WBC up to 22.0 today. ID consult pending. Afebrile. Chest Xray with atelectasis and UA ordered but not done will reorder (8) Hypokalemia Status: Acute Plan: potassium 2.9 today. Replacement added with recheck in AM (9) Hyponatremia Status: Acute Plan: sodium unchanged at 129 today. Will monitor and recheck in AM (10) Poor appetite Status: Acute Plan: Remeron ordered nightly. On ensure at each meal Assessment and Plan Assessment and plan discussed with Dr. Forbes Discussed Condition With [facility] I and the CONCRETE WORKER have both examined this patient and reviewed this note and I agree with these findings and plan of care. Tyrell Forbes DO Problem Qualifiers (1) Arthralgia of hip: Qualified Code: M25.551 - Pain of both hip joints Ingrid Nieto Aug 17, 2016 13:59
[2016-08-17 16:00] VITALS: BP 108/61; PULSE 95; RESP 18; TEMP 96.5; O2SAT 95
[2016-08-17] MEDS: ENOXAPARIN SODIUM 30 MG/0.3 ML SYRINGE SQ SCH (16:37)
--- NOTE | 2016-08-17 17:45 | PD.CONS ---
History of Present Illness Service Infectious disease Consult Requested By Dr. Forbes Reason for Consult Evaluate patient with worsening leukocytosis Primary Care Physician Tyrell Forbes, DO Diagnoses: History of Present Illness Patient seen and examined. Records reviewed. Patient is an 80-year-old female, brought into the hospital for further evaluation of worsening back and hip pain. She has had previous problem with similar pain, and has had evaluation. Recently started getting worse, and apparently she was in a near panic attack and the took her to the hospital. Patient has been evaluated by neurosurgery, and there was some progression in the abnormality in her T12 compression fracture. He was felt that patient is a very poor surgical candidate. Starting August 15, she started having some increase in her WBC. She also started having diarrhea. Her white count was 11,000 on August 15, and it's 22,000 today. She continues to have diarrhea. She denies any nausea or vomiting. Patient complains of some abdominal pain. There's been no fever, no respiratory complaint. Patient initially had a Addison catheter placed, but it was discontinued on August 14. Her admission urinalysis was normal. Not been on any antibiotics. Patient is a very poor historian, and possibly has underlying dementia. She could not really tell me whether she has received any antibiotics in the last 6 months. Infectious disease consultation is requested to evaluate the patient with worsening leukocytosis. Review of Systems ROS Limitations: Altered Mental Status, Poor Historian Constitutional: DENIES: Fever, Chills Eyes: DENIES: Eye pain Ears, nose, mouth, throat: DENIES: Nasal discharge, Throat pain, Running Nose Respiratory: DENIES: Cough, Shortness of breath Cardiovascular: DENIES: Chest pain, Palpitations Gastrointestinal: COMPLAINS OF: Abdominal pain, Diarrhea, DENIES: Nausea, Vomiting Musculoskeletal: COMPLAINS OF: Joint pain, Back pain Neurologic: DENIES: Headache Psychiatric: COMPLAINS OF: Confusion Past Family Social History Allergies: Coded Allergies: Ambien (Verified Allergy, Severe, made her go crazy, 08/12/16) Plavix (Verified Allergy, Mild, 08/12/16) PEANUTS (Verified Allergy, Unknown, Swelling, 08/12/16) pt states her lips "blow up" [place] (Verified Allergy, Unknown, Swelling, 08/12/16) pt states that her "lips blow up" Uncoded Allergies: Wine (Allergy, Intermediate, Rash, 05/24/16) Past Medical History History of coronary artery disease. Previous CA. Parkinson's disease. Arthritis. Hypertension. Dyslipidemia. Prob Dementia Past Surgical History Hysterectomy. Bilateral knee arthroplastic surgery. Carotid endarterectomy. Cardiac stents. Active Ordered Medications Tylenol Tylenol No. 3 Norvasc Aspirin Calcium gluconate Vitamin D3 Vitamin B12 Lomotil Lovenox Pepcid Lactinex Ativan Toprol Remeron Multivitamin Zofran Paxil Potassium Risperdal Tramadol Family History Non-contributory to current ID problem Social History No smoking Rare ETOH No illicit drugs Physical Exam Vital Signs Vital Signs Date Time Temp Pulse Resp B/P Pulse Ox O2 Delivery O2 Flow Rate FiO2 08/17/16 16:00 96.5 95 18 108/61 95 08/17/16 12:00 97.4 87 18 144/66 94 08/17/16 07:36 97.3 86 18 140/82 99 08/17/16 04:20 97.1 88 17 140/79 98 08/17/16 00:00 97.2 84 17 149/68 95 08/16/16 21:10 97.4 95 17 125/67 96 08/16/16 19:01 Room Air Physical Exam GENERAL: Patient is a thin, frail, well-developed CF, awake and alert, confused, not in respiratory distress. SKIN: Warm and dry. Has poor skin turgor, ,atrophic skin, has a lot of ecchymoses HEAD: Atraumatic. Normocephalic. No temporal wasting, or tenderness. EYES: [place] conjunctiva. No petechia or hemorrhage. Pupils equal, round and reactive to light. Extraocular movements full and intact. No scleral icterus. No injection or drainage. EARS, NOSE AND THROAT: Nose without bleeding or purulent nasal discharge. No sinus tenderness. Mucous membranes pink and moist. No oral lesions noted. No exudate. No oral thrush. NECK: Trachea midline. Supple and not tender, no meningeal signs CARDIOVASCULAR: Regular rate and rhythm. No murmurs, rubs or gallops heard RESPIRATORY: Clear to auscultation. Breath sounds equal bilaterally. No rales , wheezing or rhonchi ABDOMEN: Soft, mildly distended, with tenderness on RLQ and in suprapubic region. Bowel sounds present and normoactive. No guarding. No rebound. No organomegaly. EXTREMITIES: No clubbing, cyanosis, or edema. No joint effusion, has good ROM. No calf tenderness. Well perfused and warm. Has a lot of ecchymoses in BUE and BLE NEUROLOGICAL: Awake and alert. Cranial nerves grossly intact. Motor grossly within normal limits. PSYCHIATRIC: Normal affect, calm and cooperative. Confused LINE: No evidence of infection Laboratory Laboratory Tests Test 08/17/16 08:26 White Blood Count 22.0 Red Blood Count 4.14 Hemoglobin 12.7 Hematocrit 39.2 Mean Corpuscular Volume 94.8 Mean Corpuscular Hemoglobin 30.6 Mean Corpuscular Hemoglobin 32.3 Concent Red Cell Distribution Width 13.5 Platelet Count 303 Mean Platelet Volume 9.2 Sodium Level 129 Potassium Level 3.7 Chloride Level 96 Carbon Dioxide Level 22.6 Anion Gap 10 Blood Urea Nitrogen 10 Creatinine 0.47 Estimat Glomerular Filtration 127 Rate Random Glucose 122 Calcium Level 8.6 Result Diagram: 08/17/1682508/17/16 0826 Imaging RADIOLOGY STUDIES/FILMS REVIEWED Last Impressions Chest X-Ray 08/16/16 0000 Signed Impressions: Service Date/Time: Tuesday, August 16, 2016 09:08 - CONCLUSION: 1. Mild left lower lobe atelectasis/scarring. Dominick Walls MD Head CT 08/14/16 0000 Signed Impressions: Service Date/Time: Sunday, August 14, 2016 16:13 - CONCLUSION: 1. 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 2. There is some ventricular prominence which I believe is out of proportion to the degree of cortical atrophy. In the appropriate clinical setting, findings could represent normal pressure hydrocephalus. 3. Nothing acute. Dontrell Villasenor MD Brain MRI 08/13/16 0000 Signed Impressions: Service Date/Time: Saturday, August 13, 2016 15:46 - CONCLUSION: 1. Cerebral atrophy and chronic ischemic small vessel vasculopathy. 2. No acute intracranial abnormality. Denis Solomon MD Hip and Pelvis X-Ray 08/12/16 0930 Signed Impressions: Service Date/Time: Friday, August 12, 2016 10:03 - CONCLUSION: 1. No acute fracture or joint dislocation. 2. Old healed fractures involving the left superior and inferior pubic rami. Cosme Hernandez MD Hip X-Ray 08/12/16 0930 Signed Impressions: Service Date/Time: Friday, August 12, 2016 10:03 - CONCLUSION: 1. 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 Cosme Hernandez MD Lumbar Spine MRI 08/12/16 0000 Signed Impressions: Service Date/Time: Friday, August 12, 2016 16:32 - CONCLUSION: 1. There is a new moderate to prominent compression fracture injury at T12. There is moderate diffuse broad-based bulging at T12-L1 as well as retropulsion of bone material posteriorly causing at least moderate to severe spinal canal stenosis. 2. There is stable primary bony degenerative changes, disc degeneration and disc space narrowing involving the lumbar spine when compared to 2016. Cosme Hernandez MD Assessment and Plan Assessment and Plan IMPRESSION Worsening leukocytosis - has diarrhea, need to R/O C diff colitis - concern also for urinary retention, seems to have suprapubic fullness and tenderness on exam Prob with dementia Back pain and hip pain, has evidence of T12 compression fracture RECOMMENDATION Check stool for C diff Bladder scan - insert addison if with high volume Repeat UA and C/S Start Flagyl while waiting for C diff results Follow CBC Stop Lomotil Follow C/S Monitor progress I will determine Abx course once work-up is completed I will follow along with you Thank you for this consultation Nikki White MD Aug 17, 2016 17:45
[2016-08-17 19:32] LABS: BLOOD, URINE NEG (NEG); COMMENT (UR) CULT NOT INDICATED; CULTURE IF INDICATED CULT NOT INDICATED; GLUCOSE,URINE NEG (NEG); KETONE, URINE NEG (NEG); NITRITE,URINE NEG (NEG); URINE COLOR YELLOW (YELLW/STRAW)
[2016-08-17 20:00] VITALS: BP 122/80; PULSE 93; RESP 20; TEMP 98.1; O2SAT 98
[2016-08-17] MEDS: MIRTAZAPINE 15 MG TAB PO SCH (22:28)
[2016-08-17] MEDS: metroNIDAZOLE 500 MG TAB PO SCH (22:31)
[2016-08-18] VITALS (7 sets, daily range): BP systolic 124–176; BP diastolic 60–97; PULSE 89–103; RESP 16–21; TEMP 95.8–97.1; O2SAT 97–100
[2016-08-18] MEDS: metroNIDAZOLE 500 MG TAB PO SCH ×3 (05:38→21:58)
[2016-08-18] MEDS: LACTOBACILLUS ACIDOPHILUS TAB PO SCH ×2 (05:38→15:21)
[2016-08-18] MEDS: CHOLECALCIFEROL (VIT D3) 5000 UNIT CAP PO SCH (09:46)
[2016-08-18] MEDS: FAMOTIDINE 20 MG TAB PO SCH ×2 (09:46→20:39)
[2016-08-18] MEDS: CALCIUM GLUCONATE 500 MG TAB PO SCH (09:46)
[2016-08-18] MEDS: CYANOCOBALAMIN 1,000 MCG TAB PO SCH (09:46)
[2016-08-18] MEDS: ASPIRIN EC 81 MG TABEC PO SCH (09:46)
[2016-08-18] MEDS: PARoxetine 25 MG CONTROLLED RELEASE TAB PO SCH (09:46)
[2016-08-18] MEDS: POTASSIUM CHLORIDE 20 MEQ CONTROLLED RELEASE TAB PO SCH ×2 (09:46→20:39)
[2016-08-18] MEDS: amLODIPine BESYLATE 5 MG TAB PO SCH (09:47)
[2016-08-18] MEDS: MULTIVITAMIN TAB PO SCH (09:47)
[2016-08-18] MEDS: METOPROLOL SUCCINATE 25 MG EXTENDED RELEASE TAB PO SCH ×2 (09:47→20:39)
[2016-08-18] MEDS: SODIUM CHLORIDE 0.9% FLUSH 10 ML FLUSH IV FLUSH SCH ×2 (09:48→20:39)
[2016-08-18] MEDS: risperiDONE 0.5 MG TAB PO SCH ×2 (09:51→20:39)
[2016-08-18] MEDS: COLLAGENASE OINT 30 GM TUBE TOPICAL SCH (10:05)
[2016-08-18] MEDS: D5-NS + KCL 20 MEQ INJ 1,000 ML IV SCH ×2 (10:29→21:59)
--- NOTE | 2016-08-18 12:59 | HHI.PR ---
Subjective Remarks Patient is oriented to self. Denies any pain. Son at bedside. Objective Vital Signs Date Time Temp Pulse Resp B/P Pulse Ox O2 Delivery O2 Flow Rate FiO2 08/18/16 11:53 95.8 96 19 124/60 99 08/18/16 07:56 96.7 89 19 151/67 97 08/18/16 04:00 97.1 96 20 151/70 98 08/18/16 00:00 97.1 96 21 139/82 98 08/17/16 20:00 98.1 93 20 122/80 98 08/17/16 19:21 Room Air 08/17/16 16:00 96.5 95 18 108/61 95 I/O 08/17/16 08/17/16 08/17/16 08/18/16 08/18/16 08/18/16 07:00 15:00 23:00 07:00 15:00 23:00 Intake Total 0 ml 480 ml 480 ml 240 ml Output Total 600 ml 750 ml Balance 0 ml 480 ml -120 ml -510 ml Intake Oral 0 ml 480 ml 480 ml 240 ml Output Urine Total 600 ml 750 ml Bladder Scan Volume Amount 542 ml # Voids 3 2 # Bowel Movements 2 2 1 2 Result Diagram: 08/17/16 0826 08/17/16 0826 Imaging Last 72 hours Impressions Chest X-Ray 08/16/16 0000 Signed Impressions: Service Date/Time: Tuesday, August 16, 2016 09:08 - CONCLUSION: 1. Mild left lower lobe atelectasis/scarring. Dominick Walls MD Objective Remarks GENERAL: No oriented SKIN: Warm and dry. Multiple wounds on arms and coccyx HEAD: Normocephalic. EYES: No scleral icterus. No injection or drainage. NECK: Supple, trachea midline. No JVD or lymphadenopathy. CARDIOVASCULAR: Regular rate and rhythm without murmurs, gallops, or rubs. RESPIRATORY: Breath sounds equal bilaterally. No accessory muscle use. GASTROINTESTINAL: Abdomen soft, non-tender, nondistended. MUSCULOSKELETAL: No cyanosis, or edema. BACK: Nontender without obvious deformity. No CVA tenderness. Medications and IVs Current Medications Medications (Trade) Dose Ordered Sig/Leeanna Route Start Time Stop Time Status Last Admin (NS Flush) 2 ml UNSCH PRN IV FLUSH 08/12/16 14:45 (NS Flush) 2 ml BID IV FLUSH 08/12/16 21:00 08/18/16 09:48 (Tylenol) 650 mg Q4H PRN PO 08/12/16 14:45 (Zofran Inj) 4 mg Q6H PRN IVP 08/12/16 14:45 08/17/16 12:40 (Lovenox Inj) 30 mg Q24H SQ 08/12/16 17:00 08/17/16 16:37 (Narcan Inj) 0.4 mg UNSCH PRN IV 08/12/16 14:45 (Ecotrin Ec) 81 mg DAILY PO 08/13/16 09:00 08/18/16 09:46 (Toprol Xl) 25 mg BID PO 08/12/16 21:00 08/18/16 09:47 (Vitamin B12) 2,500 mcg DAILY PO 08/13/16 09:00 08/18/16 09:46 (Theragran) 1 tab DAILY PO 08/13/16 09:00 08/18/16 09:47 (Pepcid) 20 mg BID PO 08/12/16 21:00 08/18/16 09:46 (Ativan Inj) 1 mg Q4H PRN IV PUSH 08/12/16 15:30 08/13/16 08:12 (Paxil Cr) 25 mg DAILY PO 08/13/16 09:00 08/18/16 09:46 (Vitamin D3) 5,000 units DAILY PO 08/14/16 09:00 08/18/16 09:46 (Calcium Gluconate) 1,000 mg DAILY PO 08/14/16 09:00 08/18/16 09:46 (risperDAL) 0.5 mg BID PO 08/14/16 09:00 08/18/16 09:51 (Tylenol-Codeine #3) 1 tab Q4H PRN PO 08/13/16 22:00 (Ultram) 50 mg Q6H PRN PO 08/13/16 21:00 (Lactinex) 1 tab Q12H PO 08/14/16 16:00 08/18/16 05:38 (Norvasc) 5 mg DAILY PO 08/15/16 09:00 08/18/16 09:47 (Santyl Oint) 1 applic DAILY TOPICAL 08/16/16 09:00 08/18/16 10:05 (KCl) 20 meq Q12HR PO 08/17/16 09:00 08/18/16 09:46 (Remeron) 15 mg HS PO 08/17/16 21:00 08/17/16 22:28 Metronidazole 500 mg 500 mg Q8HR PO 08/17/16 22:00 08/18/16 05:38 (D5-NS + KCl 20 Meq Inj) 1,000 ml @ 84 mls/hr [id number] IV 08/18/16 10:00 08/18/16 10:29 Assessment and Plan Problem List: (1) T12 compression fracture Status: Acute Plan: Neurosurgery consulted has cleared for discharge. T12 compression fracture, previously a anterior wedge compression noted on previous imaging from July 2016. Now more recently with progression of the fracture with moderate retropulsion into the canal and anterior cord compression without edema. Lower extremity neurologic examination has been thus far normal during this hospitalization. Continuing physical therapy, mobilized out of bed as tolerated with LSO brace. Per note. No surgical intervention anticipated at the present time due to the patient's poor overall medical condition and mental status as well as presence of sacral skin ulcerations and continued intact lower extremity neurologic function. Patient continues to be weak, deconditioned, and fall risk. Pain medication as needed but with patients mental status needs to be used carefully. Patient will need acute rehab so that neurosurgery can follow along. (2) Hypertension Status: Chronic Plan: Blood pressure well controlled. Continue amlodipine and metoprolol (3) Arthralgia of hip Status: Acute Plan: No reports of pain. Pain medication PRN (4) Parkinsonism Status: Acute Plan: Neurology consulted. MRI and head CT with no acute findings. Patient with significant dementia. (5) Pressure ulcer of coccygeal region, unstageable Status: Acute Plan: Wound care consulted 2 X 3 cm with 90% yellow slough. Santyl and daily wound care ordered. Air mattress (6) Dysphagia Status: Acute Plan: Swallow eval ordered and recommends purree diet with thin liquid. Dietary consult placed. Chest Xray ordered for leukocytosis atelectasis noted. IS ordered. (7) Leukocytosis Status: Acute Plan: Labs pending for today. ID consult flagyl started for suspected C diff infection. Awaiting for nursing to collect sample. UA culture not indicated (8) Hypokalemia Status: Acute Plan: potassium 3.7 yesterday on replacement. Recheck pending (9) Hyponatremia Status: Acute Plan: Labs pending. Will monitor and recheck in AM (10) Poor appetite Status: Acute Plan: Remeron ordered nightly. On ensure at each meal. Order written for nursing to assist with feedings. Assessment and Plan Assessment and plan discussed with Dr. Forbes Discussed Condition With Nursing, son and Discharge Planning [facility] T12 compression fracture, previously a anterior wedge compression noted on previous imaging from July 2016. Now more recently with progression of the fracture with moderate retropulsion into the canal and anterior cord compression without edema. Patient is very weak and needs aggressive PT. Request [facility] so that neurosurgery can follow along. Physician Attestation I and the SENIOR PACKAGING ENGINEER have both examined this patient and reviewed this note and I agree with these findings and plan of care. Tyrell Forbes Problem Qualifiers (1) Arthralgia of hip: Qualified Code: M25.551 - Pain of both hip joints Ingrid Nieto [facility] Aug 18, 2016 12:58
--- NOTE | 2016-08-18 13:12 | HHI.IDPN ---
Subjective Subjective Remarks Patient is an 80-year-old female, brought into the hospital for further evaluation of worsening back and hip pain. She has had previous problem with similar pain, and has had evaluation. Recently started getting worse, and apparently she was in a near panic attack and the took her to the hospital. Patient has been evaluated by neurosurgery, and there was some progression in the abnormality in her T12 compression fracture. He was felt that patient is a very poor surgical candidate. Starting August 15, she started having some increase in her WBC. She also started having diarrhea. Her white count was 11,000 on August 15, and it's 22,000 today. She continues to have diarrhea. She denies any nausea or vomiting. Patient complains of some abdominal pain. There's been no fever, no respiratory complaint. Patient initially had a Addison catheter placed, but it was discontinued on August 14. Her admission urinalysis was normal. Not been on any antibiotics. Patient is a very poor historian, and possibly has underlying dementia. She could not really tell me whether she has received any antibiotics in the last 6 months. Notes reviewed D/W RN Temps ok Bladder scan with >500 ml yesterday, addison placed Still with diarrhea Labs not done yet Repeat UA ok (after addison) Antibiotics Flagyl Lines PIV Past Medical History History of coronary artery disease. Previous NE. Parkinson's disease. Arthritis. Hypertension. Dyslipidemia. Prob Dementia Past Surgical History Hysterectomy. Bilateral knee arthroplastic surgery. Carotid endarterectomy. Cardiac stents. Allergies: Coded Allergies: Ambien (Verified Allergy, Severe, made her go crazy, 08/12/16) Plavix (Verified Allergy, Mild, 08/12/16) PEANUTS (Verified Allergy, Unknown, Swelling, 08/12/16) pt states her lips "blow up" [place] (Verified Allergy, Unknown, Swelling, 08/12/16) pt states that her "lips blow up" Uncoded Allergies: Wine (Allergy, Intermediate, Rash, 05/24/16) Objective . Vital Signs Date Time Temp Pulse Resp B/P Pulse Ox O2 Delivery O2 Flow Rate FiO2 08/18/16 11:53 95.8 96 19 124/60 99 08/18/16 07:56 96.7 89 19 151/67 97 08/18/16 04:00 97.1 96 20 151/70 98 08/18/16 00:00 97.1 96 21 139/82 98 08/17/16 20:00 98.1 93 20 122/80 98 08/17/16 19:21 Room Air 08/17/16 16:00 96.5 95 18 108/61 95 08/17/16 08/17/16 08/18/16 15:00 23:00 07:00 Intake Total 480 ml 480 ml 240 ml Output Total 600 ml 750 ml Balance 480 ml -120 ml -510 ml Intake Oral 480 ml 480 ml 240 ml Output Urine Total 600 ml 750 ml Bladder Scan Volume Amount 542 ml # Voids 2 # Bowel Movements 2 1 2 . Laboratory Tests Test 08/17/16 08:26 White Blood Count 22.0 TH/MM3 Red Blood Count 4.14 MIL/MM3 Hemoglobin 12.7 GM/DL Hematocrit 39.2 % Mean Corpuscular Volume 94.8 FL Mean Corpuscular Hemoglobin 30.6 PG Mean Corpuscular Hemoglobin 32.3 % Concent Red Cell Distribution Width 13.5 % Platelet Count 303 TH/MM3 Mean Platelet Volume 9.2 FL Laboratory Tests Test 08/16/16 08/17/16 14:31 08:26 Potassium Level 3.6 MEQ/L 3.7 MEQ/L Sodium Level 129 MEQ/L Chloride Level 96 MEQ/L Carbon Dioxide Level 22.6 MEQ/L Anion Gap 10 MEQ/L Blood Urea Nitrogen 10 MG/DL Creatinine 0.47 MG/DL Estimat Glomerular Filtration 127 ML/MIN Rate Random Glucose 122 MG/DL Calcium Level 8.6 MG/DL Imaging Last Impressions Chest X-Ray 08/16/16 0000 Signed Impressions: Service Date/Time: Tuesday, August 16, 2016 09:08 - CONCLUSION: 1. Mild left lower lobe atelectasis/scarring. Dominick Walls MD Head CT 08/14/16 0000 Signed Impressions: Service Date/Time: Sunday, August 14, 2016 16:13 - CONCLUSION: 1. 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 2. There is some ventricular prominence which I believe is out of proportion to the degree of cortical atrophy. In the appropriate clinical setting, findings could represent normal pressure hydrocephalus. 3. Nothing acute. Dontrell Villasenor MD Brain MRI 08/13/16 0000 Signed Impressions: Service Date/Time: Saturday, August 13, 2016 15:46 - CONCLUSION: 1. Cerebral atrophy and chronic ischemic small vessel vasculopathy. 2. No acute intracranial abnormality. Denis Solomon MD Hip and Pelvis X-Ray 08/12/1630 Signed Impressions: Service Date/Time: Friday, August 12, 2016 10:03 - CONCLUSION: 1. No acute fracture or joint dislocation. 2. Old healed fractures involving the left superior and inferior pubic rami. Cosme Hernandez MD Hip X-Ray 08/12/16929 Signed Impressions: Service Date/Time: Friday, August 12, 2016 10:03 - CONCLUSION: 1. 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 Cosme Hernandez MD Lumbar Spine MRI 08/12/16 0000 Signed Impressions: Service Date/Time: Friday, August 12, 2016 16:32 - CONCLUSION: 1. There is a new moderate to prominent compression fracture injury at T12. There is moderate diffuse broad-based bulging at T12-L1 as well as retropulsion of bone material posteriorly causing at least moderate to severe spinal canal stenosis. 2. There is stable primary bony degenerative changes, disc degeneration and disc space narrowing involving the lumbar spine when compared to 2016. Cosme Hernandez MD Physical Exam GENERAL: Patient is a thin, frail, reclined in chair, awake and alert, confused, not in respiratory distress. SKIN: Warm and dry. Has poor skin turgor, atrophic skin, has a lot of ecchymoses HEAD: Atraumatic. Normocephalic. No temporal wasting, or tenderness. EYES: [place] conjunctiva. No petechia or hemorrhage. Pupils equal, round and reactive to light. Extraocular movements full and intact. No scleral icterus. No injection or drainage. EARS, NOSE AND THROAT: Nose without bleeding or purulent nasal discharge. No sinus tenderness. Mucous membranes pink and moist. No oral lesions noted. No exudate. No oral thrush. NECK: Trachea midline. Supple and not tender, no meningeal signs CARDIOVASCULAR: Regular rate and rhythm. No murmurs, rubs or gallops heard RESPIRATORY: Clear to auscultation. Breath sounds equal bilaterally. No rales , wheezing or rhonchi ABDOMEN: Soft, less distended, min tenderness. Bowel sounds present and normoactive. No guarding. No rebound. No organomegaly. EXTREMITIES: No clubbing, cyanosis, or edema. No joint effusion, has good ROM. No calf tenderness. Well perfused and warm. Has a lot of ecchymoses in BUE and BLE NEUROLOGICAL: Awake and alert. Cranial nerves grossly intact. Motor grossly within normal limits. PSYCHIATRIC: Normal affect, calm and cooperative. Confused LINE: No evidence of infection Assessment & Plan Remarks IMPRESSION Worsening leukocytosis - has diarrhea, need to R/O C diff colitis - concern also for urinary retention, seems to have suprapubic fullness and tenderness on exam Prob with dementia Back pain and hip pain, has evidence of T12 compression fracture RECOMMENDATION Await stool for C diff Continue Flagyl while waiting for C diff results Follow CBC Follow C/S Monitor progress D/W Nikki Nguyen MD Aug 18, 2016 13:12
[2016-08-18 14:12] LABS: MEAN CELL VOLUME 94.7 FL (80.0-100.0); MEAN CORPUSCULAR HEMOGLOBIN 31.2 PG (27.0-34.0); PLATELET COUNT 320 TH/MM3 (150-450); RED CELL DISTRIBUTION WIDTH 13.3 % (11.6-17.2); REVIEW FLAG FINAL; WHITE BLOOD COUNT 16.1 TH/MM3 (4.0-11.0)
[2016-08-18 14:50] LABS: BICARBONATE 25.6 MEQ/L (21.0-32.0); POTASSIUM 4.6 MEQ/L (3.5-5.1)
[2016-08-18] MEDS: ENOXAPARIN SODIUM 30 MG/0.3 ML SYRINGE SQ SCH (15:21)
[2016-08-18] MEDS: MIRTAZAPINE 15 MG TAB PO SCH (20:39)
[2016-08-19] MEDS: metroNIDAZOLE 500 MG TAB PO SCH ×3 (05:08→21:02)
[2016-08-19] MEDS: LACTOBACILLUS ACIDOPHILUS TAB PO SCH ×2 (05:08→17:27)
[2016-08-19 07:34] VITALS: BP 146/67; PULSE 88; RESP 20; TEMP 95.7; O2SAT 99
[2016-08-19] MEDS: CHOLECALCIFEROL (VIT D3) 5000 UNIT CAP PO SCH (09:00)
[2016-08-19] MEDS: SODIUM CHLORIDE 0.9% FLUSH 10 ML FLUSH IV FLUSH SCH ×2 (09:00→21:00)
[2016-08-19] MEDS: POTASSIUM CHLORIDE 20 MEQ CONTROLLED RELEASE TAB PO SCH (09:00)
[2016-08-19] MEDS: amLODIPine BESYLATE 5 MG TAB PO SCH (09:00)
[2016-08-19] MEDS: METOPROLOL SUCCINATE 25 MG EXTENDED RELEASE TAB PO SCH ×2 (09:00→21:02)
[2016-08-19] MEDS: CALCIUM GLUCONATE 500 MG TAB PO SCH (09:00)
[2016-08-19] MEDS: CYANOCOBALAMIN 1,000 MCG TAB PO SCH (09:00)
[2016-08-19] MEDS: PARoxetine 25 MG CONTROLLED RELEASE TAB PO SCH (09:00)
[2016-08-19] MEDS: ASPIRIN EC 81 MG TABEC PO SCH (09:00)
[2016-08-19] MEDS: COLLAGENASE OINT 30 GM TUBE TOPICAL SCH (09:00)
[2016-08-19] MEDS: MULTIVITAMIN TAB PO SCH (09:00)
[2016-08-19] MEDS: risperiDONE 0.5 MG TAB PO SCH ×2 (09:00→21:02)
[2016-08-19] MEDS: FAMOTIDINE 20 MG TAB PO SCH ×2 (09:00→21:02)
--- NOTE | 2016-08-19 11:06 | HHI.PR ---
Subjective Remarks Patient is oriented to self. Denies any pain. Mental status improved. Objective Vital Signs Date Time Temp Pulse Resp B/P Pulse Ox O2 Delivery O2 Flow Rate FiO2 08/19/16 07:34 95.7 88 20 146/67 99 08/18/16 23:58 96.7 97 16 176/97 100 08/18/16 20:00 100 Room Air 08/18/16 19:00 96.2 103 18 158/73 100 08/18/16 15:35 96.4 90 19 139/63 98 08/18/16 11:53 95.8 96 19 124/60 99 I/O 08/18/16 08/18/16 08/18/16 08/19/16 08/19/16 08/19/16 07:00 15:00 23:00 07:00 15:00 23:00 Intake Total 240 ml 150 ml 1216 ml 1039 ml Output Total 750 ml 300 ml 950 ml 451 ml Balance -510 ml -150 ml 266 ml 588 ml Intake Oral 240 ml 150 ml 260 ml 360 ml IV Total 956 ml 679 ml Output Urine Total 750 ml 300 ml 950 ml 450 ml Stool Total 1 ml # Bowel Movements 2 4 3 0 Result Diagram: 08/18/16 1348 08/18/16 1348 Objective Remarks GENERAL: No oriented but cooperative SKIN: Warm and dry. Multiple wounds on arms and coccyx HEAD: Normocephalic. EYES: No scleral icterus. No injection or drainage. NECK: Supple, trachea midline. No JVD or lymphadenopathy. CARDIOVASCULAR: Regular rate and rhythm without murmurs, gallops, or rubs. RESPIRATORY: Breath sounds equal bilaterally. No accessory muscle use. GASTROINTESTINAL: Abdomen soft, non-tender, nondistended. MUSCULOSKELETAL: No cyanosis, or edema. BACK: Nontender without obvious deformity. No CVA tenderness. Medications and IVs Current Medications Medications (Trade) Dose Ordered Sig/Leeanna Route Start Time Stop Time Status Last Admin (NS Flush) 2 ml UNSCH PRN IV FLUSH 08/12/16 14:45 (NS Flush) 2 ml BID IV FLUSH 08/12/16 21:00 08/18/16 09:48 (Tylenol) 650 mg Q4H PRN PO 08/12/16 14:45 (Zofran Inj) 4 mg Q6H PRN IVP 08/12/16 14:45 08/17/16 12:40 (Lovenox Inj) 30 mg Q24H SQ 08/12/16 17:00 08/18/16 15:21 (Narcan Inj) 0.4 mg UNSCH PRN IV 08/12/16 14:45 (Ecotrin Ec) 81 mg DAILY PO 08/13/16 09:00 08/19/16 09:00 (Toprol Xl) 25 mg BID PO 08/12/16 21:00 08/19/16 09:00 (Vitamin B12) 2,500 mcg DAILY PO 08/13/16 09:00 08/19/16 09:00 (Theragran) 1 tab DAILY PO 08/13/16 09:00 08/19/16 09:00 (Pepcid) 20 mg BID PO 08/12/16 21:00 08/19/16 09:00 (Ativan Inj) 1 mg Q4H PRN IV PUSH 08/12/16 15:30 08/13/16 08:12 (Paxil Cr) 25 mg DAILY PO 08/13/16 09:00 08/19/16 09:00 (Vitamin D3) 5,000 units DAILY PO 08/14/16 09:00 08/19/16 09:00 (Calcium Gluconate) 1,000 mg DAILY PO 08/14/16 09:00 08/19/16 09:00 (risperDAL) 0.5 mg BID PO 08/14/16 09:00 08/19/16 09:00 (Tylenol-Codeine #3) 1 tab Q4H PRN PO 08/13/16 22:00 (Ultram) 50 mg Q6H PRN PO 08/13/16 21:00 (Lactinex) 1 tab Q12H PO 08/14/16 16:00 08/19/16 05:08 (Norvasc) 5 mg DAILY PO 08/15/16 09:00 08/19/16 09:00 (Santyl Oint) 1 applic DAILY TOPICAL 08/16/16 09:00 08/19/16 09:00 (KCl) 20 meq Q12HR PO 08/17/16 09:00 08/19/16 09:00 (Remeron) 15 mg HS PO 08/17/16 21:00 08/18/16 20:39 Metronidazole 500 mg 500 mg Q8HR PO 08/17/16 22:00 08/19/16 05:08 (D5-NS + KCl 20 Meq Inj) 1,000 ml @ 84 mls/hr [id number] IV 08/18/16 10:00 08/18/16 21:59 Assessment and Plan Problem List: (1) T12 compression fracture Status: Acute Plan: Neurosurgery consulted has cleared for discharge. T12 compression fracture, previously a anterior wedge compression noted on previous imaging from July 2016. Now more recently with progression of the fracture with moderate retropulsion into the canal and anterior cord compression without edema. Lower extremity neurologic examination has been thus far normal during this hospitalization. Continuing physical therapy, mobilized out of bed as tolerated with LSO brace. Per note. No surgical intervention anticipated at the present time due to the patient's poor overall medical condition and mental status as well as presence of sacral skin ulcerations and continued intact lower extremity neurologic function. Patient continues to be weak, deconditioned, and fall risk. Pain medication as needed but with patients mental status needs to be used carefully. Patient will need acute rehab so that neurosurgery can follow along. Now more recently with progression of the fracture with moderate retropulsion into the canal and anterior cord compression without edema. (2) Hypertension Status: Chronic Plan: Continue amlodipine and metoprolol monitoring (3) Arthralgia of hip Status: Acute Plan: No reports of pain. Pain medication PRN (4) Parkinsonism Status: Acute Plan: Neurology consulted. MRI and head CT with no acute findings. Patient with significant dementia. (5) Pressure ulcer of coccygeal region, unstageable Status: Acute Plan: Wound care consulted 2 X 3 cm with 90% yellow slough. Santyl and daily wound care ordered. Air mattress (6) Dysphagia Status: Acute Plan: Swallow eval ordered and recommends purree diet with thin liquid. Dietary consult placed. Chest Xray ordered for leukocytosis atelectasis noted. IS ordered. (7) Leukocytosis Status: Acute Plan: Labs pending for today. ID consult flagyl started for suspected C diff infection. Awaiting for nursing to collect sample. UA culture not indicated (8) Hypokalemia Status: Acute Plan: K 4.6 yesterday will discontinue replacement. (9) Hyponatremia Status: Acute Plan: Sodium improved yesterday at 132. Will monitor and recheck in AM (10) Poor appetite Status: Acute Plan: Remeron ordered nightly. On ensure at each meal. Order written for nursing to assist with feedings. Assessment and Plan Assessment and plan discussed with Dr. Forbes Discharge Planning [facility] Physician Attestation I and the COMMUNITY CHEST OFFICER have both examined this patient and reviewed this note and I agree with these findings and plan of care. Tyrell Forbes DO Problem Qualifiers (1) Arthralgia of hip: Qualified Code: M25.551 - Pain of both hip joints Ingrid Nieto [facility] Aug 19, 2016 11:06
[2016-08-19] MEDS: D5-NS + KCL 20 MEQ INJ 1,000 ML IV SCH (11:29)
[2016-08-19 12:00] VITALS: BP 125/58; PULSE 83; RESP 20; TEMP 95.7; O2SAT 100
[2016-08-19 12:55] LABS: HEMATOCRIT 37.7 % (35.0-46.0); MEAN CELL VOLUME 95.8 FL (80.0-100.0); MEAN CORPUSCULAR HEMOGLOBIN 30.9 PG (27.0-34.0); MEAN CORPUSCULAR HGB CONC 32.2 % (32.0-36.0); PLATELET COUNT 344 TH/MM3 (150-450); RED BLOOD COUNT 3.93 MIL/MM3 (4.00-5.30); RED CELL DISTRIBUTION WIDTH 13.5 % (11.6-17.2); REVIEW FLAG FINAL; WHITE BLOOD COUNT 13.7 TH/MM3 (4.0-11.0)
[2016-08-19 13:35] LABS: BICARBONATE 24.2 MEQ/L (21.0-32.0); POTASSIUM 4.8 MEQ/L (3.5-5.1)
[2016-08-19 15:19] LABS: C. DIFF EPI 027 PRESUMPTIVE NEGATIVE (NEGATIVE); C. DIFF TOXIN PCR NEGATIVE (NEGATIVE)
[2016-08-19 15:38] VITALS: BP 108/54; PULSE 85; RESP 20; TEMP 95.7; O2SAT 97
[2016-08-19] MEDS: ENOXAPARIN SODIUM 30 MG/0.3 ML SYRINGE SQ SCH (17:27)
--- NOTE | 2016-08-19 17:43 | HHI.IDPN ---
Subjective Subjective Remarks Patient is an 80-year-old female, brought into the hospital for further evaluation of worsening back and hip pain. She has had previous problem with similar pain, and has had evaluation. Recently started getting worse, and apparently she was in a near panic attack and the took her to the hospital. Patient has been evaluated by neurosurgery, and there was some progression in the abnormality in her T12 compression fracture. He was felt that patient is a very poor surgical candidate. Starting August 15, she started having some increase in her WBC. She also started having diarrhea. Her white count was 11,000 on August 15, and it's 22,000 today. She continues to have diarrhea. She denies any nausea or vomiting. Patient complains of some abdominal pain. There's been no fever, no respiratory complaint. Patient initially had a Stephen catheter placed, but it was discontinued on August 14. Her admission urinalysis was normal. Not been on any antibiotics. Patient is a very poor historian, and possibly has underlying dementia. She could not really tell me whether she has received any antibiotics in the last 6 months. Notes reviewed Temps ok Still with diarrhea, C diff negative WBC better Antibiotics Flagyl Lines PIV Past Medical History History of coronary artery disease. Previous CA. Parkinson's disease. Arthritis. Hypertension. Dyslipidemia. Prob Dementia Past Surgical History Hysterectomy. Bilateral knee arthroplastic surgery. Carotid endarterectomy. Cardiac stents. Allergies: Coded Allergies: Ambien (Verified Allergy, Severe, made her go crazy, 08/12/16) Plavix (Verified Allergy, Mild, 08/12/16) PEANUTS (Verified Allergy, Unknown, Swelling, 08/12/16) pt states her lips "blow up" [place] (Verified Allergy, Unknown, Swelling, 08/12/16) pt states that her "lips blow up" Uncoded Allergies: Wine (Allergy, Intermediate, Rash, 05/24/16) Objective . Vital Signs Date Time Temp Pulse Resp B/P Pulse Ox O2 Delivery O2 Flow Rate FiO2 08/19/16 15:38 95.7 85 20 108/54 97 08/19/16 12:00 95.7 83 20 125/58 100 08/19/16 07:34 95.7 88 20 146/67 99 08/18/16 23:58 96.7 97 16 176/97 100 08/18/16 20:00 100 Room Air 08/18/16 19:00 96.2 103 18 158/73 100 08/18/16 08/18/16 08/19/16 15:00 23:00 07:00 Intake Total 150 ml 1216 ml 1039 ml Output Total 300 ml 950 ml 451 ml Balance -150 ml 266 ml 588 ml Intake Oral 150 ml 260 ml 360 ml IV Total 956 ml 679 ml Output Urine Total 300 ml 950 ml 450 ml Stool Total 1 ml # Bowel Movements 4 3 0 . Laboratory Tests Test 08/18/16 08/19/16 13:48 12:36 White Blood Count 16.1 TH/MM3 13.7 TH/MM3 Red Blood Count 3.80 MIL/MM3 3.93 MIL/MM3 Hemoglobin 11.9 GM/DL 12.1 GM/DL Hematocrit 36.0 % 37.7 % Mean Corpuscular Volume 94.7 FL 95.8 FL Mean Corpuscular Hemoglobin 31.2 PG 30.9 PG Mean Corpuscular Hemoglobin 33.0 % 32.2 % Concent Red Cell Distribution Width 13.3 % 13.5 % Platelet Count 320 TH/MM3 344 TH/MM3 Mean Platelet Volume 9.4 FL 8.8 FL Laboratory Tests Test 08/18/16 08/19/16 13:48 12:36 Sodium Level 132 MEQ/L 133 MEQ/L Potassium Level 4.6 MEQ/L 4.8 MEQ/L Chloride Level 100 MEQ/L 100 MEQ/L Carbon Dioxide Level 25.6 MEQ/L 24.2 MEQ/L Anion Gap 6 MEQ/L 9 MEQ/L Blood Urea Nitrogen 10 MG/DL 7 MG/DL Creatinine 0.56 MG/DL 0.30 MG/DL Estimat Glomerular Filtration 104 ML/MIN 214 ML/MIN Rate Random Glucose 133 MG/DL 81 MG/DL Calcium Level 8.8 MG/DL 8.8 MG/DL Phosphorus Level 2.4 MG/DL Magnesium Level 2.0 MG/DL Imaging Last Impressions Chest X-Ray 08/16/16 0000 Signed Impressions: Service Date/Time: Tuesday, August 16, 2016 09:08 - CONCLUSION: 1. Mild left lower lobe atelectasis/scarring. Dominick Walls MD Head CT 08/14/16 0000 Signed Impressions: Service Date/Time: Sunday, August 14, 2016 16:13 - CONCLUSION: 1. 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 2. There is some ventricular prominence which I believe is out of proportion to the degree of cortical atrophy. In the appropriate clinical setting, findings could represent normal pressure hydrocephalus. 3. Nothing acute. Dontrell Villasenor MD Brain MRI 08/13/16 0000 Signed Impressions: Service Date/Time: Saturday, August 13, 2016 15:46 - CONCLUSION: 1. Cerebral atrophy and chronic ischemic small vessel vasculopathy. 2. No acute intracranial abnormality. Denis Solomon MD Hip and Pelvis X-Ray 08/12/16929 Signed Impressions: Service Date/Time: Friday, August 12, 2016 10:03 - CONCLUSION: 1. No acute fracture or joint dislocation. 2. Old healed fractures involving the left superior and inferior pubic rami. Cosme Hernandez MD Hip X-Ray 08/12/16929 Signed Impressions: Service Date/Time: Friday, August 12, 2016 10:03 - CONCLUSION: 1. 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 Cosme Hernandez MD Lumbar Spine MRI 08/12/16 0000 Signed Impressions: Service Date/Time: Friday, August 12, 2016 16:32 - CONCLUSION: 1. There is a new moderate to prominent compression fracture injury at T12. There is moderate diffuse broad-based bulging at T12-L1 as well as retropulsion of bone material posteriorly causing at least moderate to severe spinal canal stenosis. 2. There is stable primary bony degenerative changes, disc degeneration and disc space narrowing involving the lumbar spine when compared to 2016. Cosme Hernandez MD Physical Exam GENERAL: Patient is a thin, frail, reclined in chair, awake and alert, confused, not in respiratory distress. SKIN: Warm and dry. Has poor skin turgor, atrophic skin, has a lot of ecchymoses HEAD: Atraumatic. Normocephalic. No temporal wasting, or tenderness. EYES: [place] conjunctiva. No petechia or hemorrhage. Pupils equal, round and reactive to light. Extraocular movements full and intact. No scleral icterus. No injection or drainage. EARS, NOSE AND THROAT: Nose without bleeding or purulent nasal discharge. No sinus tenderness. Mucous membranes pink and moist. No oral lesions noted. No exudate. No oral thrush. NECK: Trachea midline. Supple and not tender, no meningeal signs CARDIOVASCULAR: Regular rate and rhythm. No murmurs, rubs or gallops heard RESPIRATORY: Clear to auscultation. Breath sounds equal bilaterally. No rales , wheezing or rhonchi ABDOMEN: Soft, less distended, min tenderness. Bowel sounds present and normoactive. No guarding. No rebound. No organomegaly. EXTREMITIES: No clubbing, cyanosis, or edema. No joint effusion, has good ROM. No calf tenderness. Well perfused and warm. Has a lot of ecchymoses in BUE and BLE NEUROLOGICAL: Awake and alert. Cranial nerves grossly intact. Motor grossly within normal limits. PSYCHIATRIC: Normal affect, calm and cooperative. Confused LINE: No evidence of infection Assessment & Plan Remarks IMPRESSION Leukocytosis, better, possibly reactive - has diarrhea, need to R/O C diff colitis - concern also for urinary retention, seems to have suprapubic fullness and tenderness on exam Prob with dementia Back pain and hip pain, has evidence of T12 compression fracture RECOMMENDATION Give 7 days Flagyl and Lactinex Clinically doing well from ID standpoint I will see prn Can be D/C from ID standpoint Nikki White MD Aug 19, 2016 17:43
[2016-08-19 19:00] VITALS: BP 111/56; PULSE 97; RESP 17; TEMP 96.2; O2SAT 97
[2016-08-19] MEDS: PSYLLIUM FIBER SF/GF 6 GM POWD PKT PO SCH (21:00)
[2016-08-19] MEDS: MIRTAZAPINE 15 MG TAB PO SCH (21:02)
[2016-08-20] VITALS: BP 145/62; PULSE 96; RESP 18; TEMP 97.8; O2SAT 97
[2016-08-20] MEDS: D5-NS + KCL 20 MEQ INJ 1,000 ML IV SCH ×2 (01:22→09:40)
[2016-08-20] MEDS: metroNIDAZOLE 500 MG TAB PO SCH ×2 (04:43→14:42)
[2016-08-20] MEDS: LACTOBACILLUS ACIDOPHILUS TAB PO SCH ×2 (04:43→16:31)
[2016-08-20 06:50] LABS: HEMATOCRIT 35.7 % (35.0-46.0); MEAN CELL VOLUME 96.9 FL (80.0-100.0); MEAN CORPUSCULAR HEMOGLOBIN 32.5 PG (27.0-34.0); MEAN CORPUSCULAR HGB CONC 33.5 % (32.0-36.0); PLATELET COUNT 332 TH/MM3 (150-450); RED BLOOD COUNT 3.68 MIL/MM3 (4.00-5.30); RED CELL DISTRIBUTION WIDTH 13.5 % (11.6-17.2); REVIEW FLAG FINAL; WHITE BLOOD COUNT 13.2 TH/MM3 (4.0-11.0)
[2016-08-20 06:57] LABS: BICARBONATE 23.5 MEQ/L (21.0-32.0); POTASSIUM 4.4 MEQ/L (3.5-5.1)
[2016-08-20 08:00] VITALS: BP 126/58; PULSE 79; RESP 19; TEMP 96.9; O2SAT 98
[2016-08-20] MEDS: SODIUM CHLORIDE 0.9% FLUSH 10 ML FLUSH IV FLUSH SCH (09:00)
[2016-08-20] MEDS: FAMOTIDINE 20 MG TAB PO SCH (09:39)
[2016-08-20] MEDS: CHOLECALCIFEROL (VIT D3) 5000 UNIT CAP PO SCH (09:39)
[2016-08-20] MEDS: CYANOCOBALAMIN 1,000 MCG TAB PO SCH (09:39)
[2016-08-20] MEDS: METOPROLOL SUCCINATE 25 MG EXTENDED RELEASE TAB PO SCH (09:39)
[2016-08-20] MEDS: CALCIUM GLUCONATE 500 MG TAB PO SCH (09:39)
[2016-08-20] MEDS: ASPIRIN EC 81 MG TABEC PO SCH (09:39)
[2016-08-20] MEDS: risperiDONE 0.5 MG TAB PO SCH (09:39)
[2016-08-20] MEDS: amLODIPine BESYLATE 5 MG TAB PO SCH (09:40)
[2016-08-20] MEDS: MULTIVITAMIN TAB PO SCH (09:40)
[2016-08-20] MEDS: COLLAGENASE OINT 30 GM TUBE TOPICAL SCH (09:40)
[2016-08-20] MEDS: PARoxetine 25 MG CONTROLLED RELEASE TAB PO SCH (09:40)
[2016-08-20] MEDS: PSYLLIUM FIBER SF/GF 6 GM POWD PKT PO SCH (09:40)
[2016-08-20 12:00] VITALS: BP 131/65; PULSE 85; RESP 18; TEMP 96.9; O2SAT 98
[2016-08-20] MEDS ORDERED: CHOLESTYRAMINE 4 GM PACKET PO SCH (15:00)
[2016-08-20] MEDS ORDERED: PAXI25TA5 PO (15:03)
[2016-08-20] MEDS ORDERED: LACT PO (15:03)
[2016-08-20] MEDS ORDERED: ULTR50TA5 PO (15:03)
[2016-08-20] MEDS ORDERED: AMLO5 PO (15:03)
[2016-08-20] MEDS ORDERED: MIRTA15 PO (15:03)
[2016-08-20] MEDS ORDERED: ACET1TAB86 PO (15:03)
[2016-08-20] MEDS ORDERED: CHOL5000 PO (15:03)
[2016-08-20] MEDS ORDERED: RISP0.5T20 PO (15:03)
[2016-08-20] MEDS ORDERED: KONS100P3 PO (15:03)
[2016-08-20] MEDS ORDERED: COLL30T TOPICAL (15:03)
[2016-08-20] MEDS ORDERED: METR-1 PO (15:03)
[2016-08-20] MEDS ORDERED: ENOX30P SQ (15:03)
[2016-08-20] MEDS ORDERED: FAMO20TA2 PO (15:03)
[2016-08-20] MEDS ORDERED: ACET-534 PO (15:03)
[2016-08-20] MEDS ORDERED: CALG500 PO (15:03)
[2016-08-20] MEDS: ENOXAPARIN SODIUM 30 MG/0.3 ML SYRINGE SQ SCH (16:31)
== END 2016-08-20 17:30 | DRG 560 ==
LOC: NEPC 09:19 → NEDA 14:44 → N06A 17:13
PROVIDERS: ADMIT Family Medicine; ATTEND Family Medicine
DX: M48.54XG Collapsed vertebra, not elsewhere classified, thoracic region, subsequent encounter for fracture with delayed healing (principal); E87.1 Hypo-osmolality and hyponatremia; L89.150 Pressure ulcer of sacral region, unstageable; G20 Parkinson's disease; F02.80 Dementia in other diseases classified elsewhere, unspecified severity, without behavioral disturbance, psychotic disturbance, mood disturbance, and anxiety; R13.10 Dysphagia, unspecified; I10 Essential (primary) hypertension; M16.0 Bilateral primary osteoarthritis of hip; D72.829 Elevated white blood cell count, unspecified; E87.6 Hypokalemia; R63.0 Anorexia; R19.7 Diarrhea, unspecified; I25.10 Atherosclerotic heart disease of native coronary artery without angina pectoris; I25.2 Old myocardial infarction; E78.5 Hyperlipidemia, unspecified; Z95.5 Presence of coronary angioplasty implant and graft; R54 Age-related physical debility; Z96.653 Presence of artificial knee joint, bilateral; Z79.82 Long term (current) use of aspirin
CPT/HCPCS: 70450; 70553; 71010; 72148; 73502; 76937; 80048; 80053; 81001; 82607; 82652; 83735; 84100; 84132; 84134; 84402; 84403; 84410; 84443; 84481; 85025; 85027; 85610; 85652; 85730; 87493; 94150; 96374; 96375; A9579; J1650; J1885; J2060; J2270; J2405; J3480; L0484

== ENCOUNTER → 2016-12-14 | Outpatient (CLI) | payer MEDICARE, BC, OTHER ==
[~2016-12-14] MED LIST changes: +ACET-534 PO; +ACET325T15 PO; +ALPR.25 PO; -ASPI-110 PO; +ASPI1TAB57 PO; +BETH10 PO; +CALG500 PO; -CHOL400D2 PO; +CHOL5000 PO; +CIPR-9 PO; +ENOX30P SQ; +FAMO20TA2 PO; +LACT PO; +METO1TAB42 PO; -METO25TA6 PO; +MIRTA15 PO; +PARO25CR PO; +RISP0.5T25 PO; -TYLETAB34 PO
[2016-12-14 13:53] LABS: AUTOMATED NEUTROPHIL # 5.3 TH/MM3 (1.8-7.7); BASOPHIL # 0.1 TH/MM3 (0-0.2); BASOPHIL % 1.1 % (0.0-2.0); EOSINOPHIL # 0.3 TH/MM3 (0-0.4); EOSINOPHIL % 2.8 % (0.0-4.0); HEMATOCRIT 42.6 % (35.0-46.0); HEMO FLAGS DIFF FINAL; LYMPH % 27.9 % (9.0-44.0); LYMPHOCYTE # 2.5 TH/MM3 (1.0-4.8); MEAN CELL VOLUME 93.9 FL (80.0-100.0); MEAN CORPUSCULAR HEMOGLOBIN 31.1 PG (27.0-34.0); MEAN CORPUSCULAR HGB CONC 33.1 % (32.0-36.0); MONO % 7.6 % (0.0-8.0); NEUT % 60.6 % (16.0-70.0); PLATELET COUNT 348 TH/MM3 (150-450); RED BLOOD COUNT 4.53 MIL/MM3 (4.00-5.30); RED CELL DISTRIBUTION WIDTH 14.7 % (11.6-17.2); WHITE BLOOD COUNT 8.8 TH/MM3 (4.0-11.0)
[2016-12-14 14:57] LABS: BLOOD, URINE NEG (NEG); GLUCOSE,URINE NEG (NEG); KETONE, URINE 10 mg/dL (NEG); MUCUS URINE FEW /lpf (OCC); NITRITE,URINE NEG (NEG); PH, URINE 6.5 (5.0-8.5); URINE COLOR YELLOW (YELLW/STRAW)
[2016-12-14 15:00] LABS: CHLORIDE 102 MEQ/L (98-107); POTASSIUM 3.8 MEQ/L (3.5-5.1); SODIUM (NA) 138 MEQ/L (136-145)
[2016-12-14 15:17] LABS: ALKALINE PHOSPHATASE 231 U/L (45-117); ALT (GPT) 45 U/L (10-53); ANION GAP 13 MEQ/L (5-15); AST (GOT) 36 U/L (15-37); BICARBONATE 23.5 MEQ/L (21.0-32.0); BLOOD UREA NITROGEN 13 MG/DL (7-18); GLOMERULAR FILTRATION RATE 81 ML/MIN (>89); GLUCOSE,FASTING 97 MG/DL (74-99); THYROXINE (T4) 9.9 MCG/DL (4.8-13.9); TOTAL BILIRUBIN ADULT 0.5 MG/DL (0.2-1.0)
== END ==
LOC: PLAB 09:02
PROVIDERS: ATTEND Family Medicine
DX: E55.9 Vitamin D deficiency, unspecified (principal); R19.7 Diarrhea, unspecified; R82.90 Unspecified abnormal findings in urine; Z79.899 Other long term (current) drug therapy
CPT/HCPCS: 36415; 80053; 81001; 82306; 84436; 84443; 84480; 85025; 87086

== ENCOUNTER 2017-09-20 06:09 | Inpatient (IN) ==
[2017-09-20] MEDS ORDERED: Acetaminophen 325 MG Tablet PO ONE (06:29)
--- NOTE | 2017-09-20 06:29 | ED ---
HPI General Chief Complaint: Fall Stated Complaint: fall/evac Time Seen by Provider: 09/20/17 06:13 Source: patient Mode of arrival: EMS Limitations: no limitations History of Present Illness HPI Narrative: The patient is a 81-year-old female who presents to the emergency department via EMS after a fall. The patient states she fell yesterday morning, in the kitchen, while making coffee. The patient states her had to help her off of the floor. The patient states she has had difficulty walking secondary to left knee pain since the fall yesterday and her called EMS this morning because "I was too much to take care of ". The patient states that she felt lightheaded and dizzy prior to falling yesterday, she states she landed on her knees and has significant left knee pain. The patient is unsure if she struck her head or had any loss of consciousness. The patient does complain of some generalized weakness and left knee pain. She also notes a skin tear to left upper extremity where her tried to pick her up. She cannot recall her last tetanus shot. She denies any chest pain, shortness breath, nausea, vomiting, or abdominal pain. She denies any focal deficits. The patient's primary physician is Dr. Tyrell Forbes. complaint: fall Onset (ago): day(s) Fall from: standing Fall witnessed: yes, by family Place fall occurred: home Loss of consciousness: unsure Prolonged down time: yes Symptoms prior to fall: lightheadedness and dizziness Location of injury: other Location of injury - extremities: Left: knee Severity: moderate Severity scale (1-10): 5 Quality: aching Associated symptoms (after fall): weakness Related Data Home Medications Medication Instructions Recorded Confirmed acetaminophen-codeine 09/20/17 [Tylenol-Codeine #3] apixaban [Eliquis] 2.5 mg PO BID 09/20/17 09/20/17 bismuth subsalicylate 262 mg PO Q30M PRN 09/20/17 09/20/17 [Anti-Diarrheal] budesonide 9 mg PO DAILY 09/20/17 09/20/17 cholecalciferol (vitamin D3) 1,000 unit PO DAILY 09/20/17 09/20/17 [Vitamin D3] meclizine 25 mg PO TID 09/20/17 09/20/17 metoprolol tartrate 50 mg PO BID 09/20/17 09/20/17 triamcinolone acetonide 1 applic TOPICAL BID 09/20/17 09/20/17 vitamin [id number] acid 1 tab PO DAILY 09/20/17 09/20/17 Allergies Allergy/AdvReac Type Severity Reaction Status Date / Time zolpidem Allergy Severe made her Unverified 09/20/16 15:47 go crazy clopidogrel Allergy Mild Unverified 09/20/16 15:47 peanut Allergy Unknown Swelling Unverified 09/20/16 15:47 strawberry Allergy Unknown Swelling Unverified 09/20/16 15:47 Wine Allergy Intermediate Rash Uncoded 05/24/16 12:05 Review of Systems ROS: all other systems reviewed are negative [facility] Social History Social History Substance History: Unable to Obtain Second Hand Smoke Exposure: No Smoking Status: Never smoker How Often Do You Have a Drink Containing Alcohol: Never Recent Travel in [facility] within the Last 8 Weeks: No Recent Out of Country Travel within the Last 8 Weeks: No Immunization History Tetanus Immunization: Unable to Assess Exam Narrative Exam Narrative: GENERAL: Awake, alert, pleasant 81-year-old female who appears her stated age and is in no acute respiratory distress. SKIN: Focused skin assessment warm/dry. Skin tear to the left upper extremity over the proximal humerus. Healing lesion on the right side of her face, secondary to Derm procedure per the patient. Superficial areas of ecchymosis on the upper and lower extremities. Ecchymosis noted over the anterior aspect of the left knee. HEAD: Atraumatic. Normocephalic. EYES: Pupils equal and round. Pupils are 2 mm bilateral and reactive. ENT: No nasal bleeding or discharge. Slightly dry mucous membranes. NECK: Trachea midline. No JVD. CARDIOVASCULAR: Regular rate and rhythm. No murmur appreciated. RESPIRATORY: No accessory muscle use. Clear to auscultation. Breath sounds equal bilaterally. GASTROINTESTINAL: Abdomen soft, non-tender, nondistended. No rebound tenderness. MUSCULOSKELETAL: The left knee is swollen compared to the right. The patient is able to flex the right hip and right knee full range of motion. Limited range of motion with flexion left hip and knee secondary to the left knee pain. Positive distal pulses. NEUROLOGICAL: Awake and alert. No obvious cranial nerve deficits. Motor grossly within normal limits. Normal speech. Nonfocal. 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 The patient did not know the current month. PSYCHIATRIC: Appropriate mood and affect; insight and judgment normal. Course Initial Documented Vital Signs Temperature 97.6 F 09/20/17 06:12 Pulse Rate 100 H 09/20/17 06:12 Respiratory Rate 18 09/20/17 06:12 Blood Pressure 176/77 H 09/20/17 06:12 Last Documented Vital Signs Temperature 97.6 F 09/20/17 06:12 Pulse Rate 80 09/20/17 10:15 Respiratory Rate 16 09/20/17 10:15 Blood Pressure 171/84 H 09/20/17 10:15 Pulse Oximetry 93 L 09/20/17 10:15 Sign Out Sign Out Data: Patient Sign Out occurred on 09/20/17 at 07:41. Patient's care was discussed, and care was transferred from Dillon Dickey MD to Eliseo Rock MD. Sign Out Comment: Patient is signed out at 7 AM with laboratory evaluation, x- ray, and CT pending. If x-rays are unremarkable, patient will need trial of ambulation prior to disposition to assess this patient needs PT/OT evaluation or can be discharged home safely. Last updated by Dillon Dickey MD at 09/20/17 06:37 Medical Decision Making MDM Narrative Medical decision making narrative: IV was established, labs are drawn and sent, and the patient was placed on cardiac telemetry monitoring and continuous pulse oximetry monitoring. EKG was ordered and interpreted. CT of the brain was obtained. Pelvis x-ray and left femur x-ray were obtained. UA was sent to lab. The patient was administered Tylenol 650 mg orally for pain. The patient was signed out to the oncoming physician at 7 AM. I had a discussion with the patient's who arrived at approximately 6:40 AM. He states the patient fell yesterday and has been unable to bear any weight secondary to weakness of the lower extremities bilaterally. The states occasionally normally walks with a walker and is able to maneuver around the house, however, he had difficulty moving the patient from the bed to the bedside commode. He states he is unable to take care of the patient and her current condition. We had a discussion regarding home health care physical therapy/Occupational Therapy versus possible rehabilitation/NURSING HOME, the patient's would prefer [facility] [place] [facility] if possible. The patient's primary physician is Dr. Alcaraz, who will need to be notified after the workup is complete for possible admission and PT/OT evaluation for possible rehabilitation placement. The patient has a significant left knee hemarthrosis. It is not readily amenable to bedside drainage due to the concomitant total knee arthroplasty hardware and Eliquis compliance. The case was discussed with orthopedics. CT knee added on which does not require operative intervention per Dr. Thorpe's service. In summary the patient is unable to stand with one leg and pivot however she was able to prior. Case discussed with Alexandra for Dr. Alcaraz service. The patient will state [facility] [place] for physical therapy evaluation. Urinalysis was just resulted at approximately 11:30 AM. One dose of Rocephin will be added if nothing has been ordered yet. Medical Screen Exam Complete: Yes Emergency Medical Condition: Yes Differential Diagnosis Differential Diagnosis: Differential diagnosis includes mechanical fall, syncope , near-syncope, fracture, dislocation, contusion, subdural hemorrhage, UTI, hyponatremia, dehydration, debility. Lab Data Lab results reviewed: Yes I reviewed the patient's lab results. Lab results narrative: UA shows UTI Result diagrams: 09/20/17 06:40 09/20/17 06:40 Lab Results 09/20/17 09/20/17 09/20/17 Range/Units 06:40 06:40 09:15 CBC w Diff Auto diff final WBC 10.9 (4.0-11.0) th/mm3 RBC 4.04 (4.00-5.30) mil/mm3 Hgb 13.3 (11.6-15.3) gm/dL Hct 39.5 (35.0-46.0) % MCV 97.8 (80.0-100.0) fL MCH 32.8 (27.0-34.0) pg MCHC 33.6 (32.0-36.0) % RDW 13.3 (11.6-17.2) % Plt Count 226 (150-450) th/mm3 MPV 8.8 (7.0-11.0) fL Neut % (Auto) 76.0 H (16.0-70.0) % Lymph % (Auto) 11.6 (9.0-44.0) % [place] % (Auto) 6.7 (0.0-8.0) % Eos % (Auto) 1.7 (0.0-4.0) % Baso % (Auto) 4.0 H (0.0-2.0) % Neut # (Auto) 8.3 H (1.8-7.7) th/mm3 Lymph # (Auto) 1.3 (1.0-4.8) th/mm3 [place] # (Auto) 0.7 (0.0-0.9) th/mm3 Eos # (Auto) 0.2 (0.0-0.4) th/mm3 Baso # (Auto) 0.4 H (0.0-0.2) th/mm3 WBC Differential . Differential Comment . Sodium 141 (136-145) meq/L Potassium 3.6 (3.5-5.1) meq/L Chloride 109 H (98-107) meq/L Carbon Dioxide 26.8 (21.0-32.0) meq/L Anion Gap 5 (5-15) meq/L BUN 16 (7-18) mg/dL Creatinine 0.61 (0.50-1.00) mg/dL Estimated GFR Greater than 89 (>89) mL/min Random Glucose 118 H (74-106) mg/dL Calcium 8.7 (8.5-10.1) mg/dL Total Bilirubin 0.4 (0.2-1.0) mg/dL AST 25 (15-37) U/L ALT 23 (10-53) U/L Alkaline Phosphatase 87 (45-117) U/L Total Protein 7.2 (6.4-8.2) g/dL Albumin 3.1 L (3.4-5.0) g/dL Ur Collection Type Cath Urine Color Yellow (Yellw/Straw) Urine Clarity Slightly cloudy (Clear) Urine pH 6.0 (5.0-8.5) Ur Specific [place] 1.025 (1.002-1.035) Urine Protein Negative (Neg-Trace) mg/dL Urine Glucose (UA) Negative (Negative) mg/dL Urine Ketones Negative (Negative) mg/dL Urine Occult Blood Trace (Negative) Urine Nitrate Positive H (Negative) Urine Bilirubin Negative (Negative) Urine Urobilinogen 0.2 (Less than 2) mg/dL Ur Leukocyte Esterase Trace H (Negative) Urine WBC 21-50 H (0-5) /hpf Urine WBC Clumps Few H (None) Ur Transition Epith Cell 1-5 H (None) /hpf Amorphous Sediment Few H (None) /hpf Urine Bacteria Many H (None) /hpf Urine Mucus Few H (Occasional) /lpf Micro UA Comment Cath-culture ind Urine Culture Comments Cath-cult indicated Urine Collection Time 915 hours Imaging Data Radiologist's impression: Femur X-Ray 09/20/17 06:29 CONCLUSION: Chronic changes and no definite fracture for technique. Head CT 09/20/17 06:29 CONCLUSION: Slight chronic small vessel ischemic and atrophic changes. . Pelvis X-Ray 09/20/17 06:29 CONCLUSION: Chronic changes and no definite fracture for technique. Knee CT 09/20/17 08:28 CONCLUSION: 1. Knee prosthesis generates beam hardening artifact which limits the study. 2. No fracture or dislocation. 3. Small joint effusion. Discharge Plan Discharge Disposition Patient Disposition: 30 Still Patient Discharge Condition Condition: Stable Physicians Team ED Provider: Eliseo Rock Primary Care Provider: Tyrell Forbes Attending Provider: Tyrell Forbes Discharge Interventions Interventions: Vital Signs Last Done: 09/20/17 10:15 Status ED Status: Admitted Patient
[2017-09-20] MEDS ORDERED: Tetanus/Diphtheria Toxoid Adult Vaccine Inj 0.5 ML Vial IM ONE (06:33)
[2017-09-20] MEDS: Sod Chloride 0.9% Inj 1,000 ML IV.CONT SCH ×3 (06:37→19:18)
[2017-09-20 06:47] LABS: Baso # (Auto) 0.4 th/mm3 (0.0-0.2); Eos # (Auto) 0.2 th/mm3 (0.0-0.4); Eos % (Auto) 1.7 % (0.0-4.0); Hematocrit 39.5 % (35.0-46.0); Hemoglobin 13.3 gm/dL (11.6-15.3); Lymph # (Auto) 1.3 th/mm3 (1.0-4.8); Lymph % (Auto) 11.6 % (9.0-44.0); Mean Corpuscular HGB Conc 33.6 % (32.0-36.0); Mean Corpuscular Hemoglobin 32.8 pg (27.0-34.0); Mean Corpuscular Volume 97.8 fL (80.0-100.0); Mean Platelet Volume 8.8 fL (7.0-11.0); Mono # (Auto) 0.7 th/mm3 (0.0-0.9); Mono % (Auto) 6.7 % (0.0-8.0); Neut # (Auto) 8.3 th/mm3 (1.8-7.7); Platelet Count 226 th/mm3 (150-450); Red Blood Count 4.04 mil/mm3 (4.00-5.30); Red Cell Distribution Width 13.3 % (11.6-17.2); White Blood Count 10.9 th/mm3 (4.0-11.0)
[2017-09-20 06:56] LABS: Chloride 109 meq/L (98-107); Potassium 3.6 meq/L (3.5-5.1); Sodium 141 meq/L (136-145)
[2017-09-20 06:59] LABS: Calcium 8.7 mg/dL (8.5-10.1)
[2017-09-20 07:00] LABS: Albumin 3.1 g/dL (3.4-5.0); Anion Gap 5 meq/L (5-15); Blood Urea Nitrogen 16 mg/dL (7-18); Carbon Dioxide 26.8 meq/L (21.0-32.0); Glucose,Random 118 mg/dL (74-106)
[2017-09-20 07:03] LABS: Alanine Aminotransferase 23 U/L (10-53); Aspartate Aminotransferase 25 U/L (15-37); Glomerular Filtration Rate Greater Than 89 mL/min (>89)
[2017-09-20 07:04] LABS: Total Protein 7.2 g/dL (6.4-8.2)
[2017-09-20 07:06] LABS: Alkaline Phosphatase 87 U/L (45-117)
--- NOTE | 2017-09-20 07:21 | CT ---
EXAM DATE: 09/20/2017 7:14 AM EDT AGE/SEX: 81 years / Female INDICATIONS: Fall. Syncope. CLINICAL DATA: This is the patient's initial encounter. Patient reports that signs and symptoms have been present for 1 day and indicates a pain score of 0/10. MEDICAL/SURGICAL HISTORY: Cardiovascular disease. Hypertension. CABG. Coronary artery stent. Car otid endarterectomy. Bilateral knee replacement Hysterectomy RADIATION DOSE: 48.73 CTDI (mGy) COMPARISON: No prior exams available for comparison. TECHNIQUE: CT of the head without contrast. Using automated exposure control and adjustment of the mA and/or kV according to patient size, radiation dose was kept as low as reasonably achievable to ob tain optimal diagnostic quality images. DICOM format image data is available electronically for revi ew and comparison. FINDINGS: There is no evidence for intracranial hemorrhage, mass effect, mass lesions, or edema. The visualize d bony structures appear intact. Slight degree of brain atrophy is seen. Slight periventricular whit e matter changes are seen nonspecific mostly consistent with chronic small vessel ischemic changes. There are no signs of acute infarction for technique. CONCLUSION: Slight chronic small vessel ischemic and atrophic changes. . Electronically signed by: Sejal Dent MD 09/20/2017 7:19 AM EDT
--- NOTE | 2017-09-20 07:28 | XR ---
EXAM DATE: 09/20/2017 7:20 AM EDT AGE/SEX: 81 years / Female INDICATIONS: Left distal femur pain post fall yesterday. Patient states her knee is where the most p ain is. CLINICAL DATA: This is the patient's initial encounter. Patient reports that signs and symptoms have been present for 2 days and indicates a pain score of 8/10. MEDICAL/SURGICAL HISTORY: None. Total knee replacement, left. Total knee replacement, right. O RIF right femur. COMPARISON: No prior exams available for comparison. FINDINGS: Total knee arthroplasty is in place. The femoral, tibial, and patellar components appear intact. There are no signs of loosening or fracture. Bony structures are osteopenic. There are athe rosclerotic calcifications involving the visualized blood vessels chronic in nature. There is a tiny joint effusion in the suprapatellar bursa. Moderate osteoarthritis left hip joint. CONCLUSION: Chronic changes and no definite fracture for technique. Electronically signed by: Sejal Dent MD 09/20/2017 7:27 AM EDT
--- NOTE | 2017-09-20 07:29 | XR ---
EXAM DATE: 09/20/2017 7:22 AM EDT AGE/SEX: 81 years / Female INDICATIONS: Left hip pain post fall yesterday. CLINICAL DATA: This is the patient's initial encounter. Patient reports that signs and symptoms have been present for 2 days and indicates a pain score of 3/10. MEDICAL/SURGICAL HISTORY: None. Total knee replacement, left. Total knee replacement, right. O RIF right femur. COMPARISON: No prior exams available for comparison. FINDINGS: No definite fractures, or dislocations are identified. No definite lytic or sclerotic les ion is seen. Slight osteopenia is seen. There are atherosclerotic calcifications involving the visua lized blood vessels chronic in nature. Old healed fracture left symphysis pubis and possibly pubic ra mi. There is moderate osteoarthritis left hip joint and there are postsurgical changes in the right proximal femur. CONCLUSION: Chronic changes and no definite fracture for technique. Electronically signed by: Sejal Dent MD 09/20/2017 7:28 AM EDT
--- NOTE | 2017-09-20 09:14 | CT ---
EXAM DATE: 09/20/2017 9:01 AM EDT AGE/SEX: 81 years / Female INDICATIONS: Left knee pain after fall. CLINICAL DATA: This is the patient's initial encounter. Patient reports that signs and symptoms have been present for 1 day and indicates a pain score of 7/10. MEDICAL/SURGICAL HISTORY: Cardiovascular disease. Hypertension. CABG. Hysterectomy. Bilateral kne e replacements RADIATION DOSE: 12.89 CTDI (mGy) COMPARISON: [facility]PO, FEMUR LEFT 2V, 09/20/2017. . TECHNIQUE: Multiple contiguous axial images were acquired using a multirow detector CT scanner witho ut contrast. Multiplanar reconstruction was performed in the sagittal and coronal planes. Using aut omated exposure control and adjustment of the mA and/or kV according to patient size, radiation dose was kept as low as reasonably achievable to obtain optimal diagnostic quality images. DICOM format i mage data is available electronically for review and comparison. FINDINGS: There is a total knee prosthesis which generates significant beam hardening artifact limiting the james dy. No fracture observed. A small joint effusion is noted. Atherosclerotic calcifications involving t he popliteal artery without aneurysmal change. No dislocation. CONCLUSION: 1. Knee prosthesis generates beam hardening artifact which limits the study. 2. No fracture or dislocation. 3. Small joint effusion. Electronically signed by: Ari Zheng MD 09/20/2017 9:13 AM EDT
[2017-09-20 09:39] LABS: Bilirubin,Urine Negative (Negative); Clarity,Urine Slightly Cloudy (Clear); Color,Urine Yellow (Yellw/Straw); Glucose,Urine (UA) Negative (Negative); Leukocyte Esterase,Urine Trace (Negative); Nitrite,Urine Positive (Negative); Specific Gravity,Urine 1.025 (1.002-1.035); Urobilinogen,Urine 0.2 mg/dL (Less than 2)
[2017-09-20 09:44] LABS: Collection Time,Urine 915 hours
[2017-09-20 09:45] LABS: Amorphous Sediment,Urine Few /hpf; Bacteria,Urine Many /hpf; Mucus,Urine Few /lpf (Occasional); WBC,Urine 21-50 /hpf (0-5)
--- NOTE | 2017-09-20 10:50 | P.HPFP ---
History of Present Illness Service: primary care Primary Care Physician: Tyrell Forbes DO Chief Complaint: uti History of Present Illness: weak and dizzy the past few days - Diagnosis (1) UTI (urinary tract infection) Inpatient Certification: I certify that the inpatient services were ordered in accordance with Medicare regulations governing the order. This includes certification that hospital inpatient services are reasonable and necessary and in the case of services not specified as inpatient-only under 42 CFR 419.22(n), that they are appropriately provided as inpatient services in accordance to with the 2-midnight benchmark under 43 CFR 412.3(e) Estimated Total Length of Stay (Days): 5 Plans for Post Hospital Care: SNF Review of Systems Musculoskeletal: Reports muscle weakness Neurologic: Reports dizziness PMFSH - Tobacco History Second Hand Smoke Exposure: No Smoking Status: Never smoker - Alcohol History How Often Do You Have a Drink Containing Alcohol: Never - Substance Use History Substance History: Unable to Obtain - Travel History Recent Travel in the [place] Within the Last 8 Weeks: No Recent Travel Out of the Country Within the Last 8 Weeks: No - Immunization History Tetanus Immunization: Unable to Assess Medications and Allergies Active Medications: Active Medications Sodium Chloride (Ns Inj) 1,000 mls @ 100 mls/hr IV.CONT .Q10H [facility] Last Admin: 09/20/17 06:37 Dose: 100 mls/hr Sodium Chloride (Ns Flush) 2 ml IV.FLUSH PRN PRN PRN Reason: FLUSH AFTER USING IV ACCESS Allergies Allergy/AdvReac Type Severity Reaction Status Date / Time zolpidem Allergy Severe made her Unverified 09/20/16 15:47 go crazy clopidogrel Allergy Mild Unverified 09/20/16 15:47 peanut Allergy Unknown Swelling Unverified 09/20/16 15:47 strawberry Allergy Unknown Swelling Unverified 09/20/16 15:47 Wine Allergy Intermediate Rash Uncoded 05/24/16 12:05 Home Medications Medication Instructions Recorded Confirmed Type acetaminophen-codeine 09/20/17 History [Tylenol-Codeine #3] cholecalciferol (vitamin D3) 1,000 unit PO DAILY 09/20/17 09/20/17 History [Vitamin D3] metoprolol tartrate 50 mg PO BID 09/20/17 09/20/17 History triamcinolone acetonide 1 applic TOPICAL BID 08/15/18 08/15/18 History Exam Vital signs: Vital Signs 09/20/17 06:12 09/20/17 06:29 09/20/17 10:15 Temperature 97.6 F Pulse Rate 100 H 88 80 Respiratory Rate 18 16 Blood Pressure 176/77 H 171/84 H Pulse Oximetry 93 L Intake & Output 09/19/17 09/20/17 09/20/17 18:59 06:59 18:59 Weight 45.359 kg - Constitutional no acute distress - Routine HEENT Exam Head: Present: normocephalic, atraumatic (abrasion right cheek) Eye: Present: EOMI, PERRL ENT: Present: mucous membranes moist - Routine Neck Exam Present: supple - Routine Respiratory Exam Present: CTA bilaterally - Routine Cardiovascular Exam Present: RRR - Routine Abdominal Exam Present: soft, normoactive bowel sounds - Routine Extremities Exam Comments: pain swelling left knee Results - Labs Result diagrams: 09/22/17 10:37 09/22/17 10:37 Abnormal lab results 09/20/17 09/20/17 09/20/17 Range/Units 06:40 06:40 09:15 Neut % (Auto) 76.0 H (16.0-70.0) % Baso % (Auto) 4.0 H (0.0-2.0) % Neut # (Auto) 8.3 H (1.8-7.7) th/mm3 Baso # (Auto) 0.4 H (0.0-0.2) th/mm3 Chloride 109 H (98-107) meq/L Random Glucose 118 H (74-106) mg/dL Albumin 3.1 L (3.4-5.0) g/dL Urine Nitrate Positive H (Negative) Ur Leukocyte Esterase Trace H (Negative) Urine WBC 21-50 H (0-5) /hpf Urine WBC Clumps Few H (None) Ur Transition Epith Cell 1-5 H (None) /hpf Amorphous Sediment Few H (None) /hpf Urine Bacteria Many H (None) /hpf Urine Mucus Few H (Occasional) /lpf Short CBC 09/20/17 Range/Units 06:40 WBC 10.9 (4.0-11.0) th/mm3 Hgb 13.3 (11.6-15.3) gm/dL Hct 39.5 (35.0-46.0) % Plt Count 226 (150-450) th/mm3 BMP 09/20/17 06:40 Sodium 141 Potassium 3.6 Chloride 109 H Carbon Dioxide 26.8 BUN 16 Creatinine 0.61 Calcium 8.7 Liver Function 09/20/17 Range/Units 06:40 Total Bilirubin 0.4 (0.2-1.0) mg/dL AST 25 (15-37) U/L ALT 23 (10-53) U/L Alkaline Phosphatase 87 (45-117) U/L Albumin 3.1 L (3.4-5.0) g/dL Urine 09/20/17 Range/Units 09:15 Urine Color Yellow (Yellw/Straw) Urine Clarity Slightly cloudy (Clear) Urine pH 6.0 (5.0-8.5) Ur Specific [place] 1.025 (1.002-1.035) Urine Protein Negative (Neg-Trace) mg/dL Urine Glucose (UA) Negative (Negative) mg/dL - Imaging Impressions Femur X-Ray 09/20/17 06:29 CONCLUSION: Chronic changes and no definite fracture for technique. Head CT 09/20/17 06:29 CONCLUSION: Slight chronic small vessel ischemic and atrophic changes. . Pelvis X-Ray 09/20/17 06:29 CONCLUSION: Chronic changes and no definite fracture for technique. Knee CT 09/20/17 08:28 CONCLUSION: 1. Knee prosthesis generates beam hardening artifact which limits the study. 2. No fracture or dislocation. 3. Small joint effusion. Caprini VTE Risk Assessment Caprini VTE Risk Assessment: No/Low Risk (score <= 1) VTE Pharmacological Exception Reason: Hemorrhage (pt has large hematoma on knee anticoag witheld for now) Caprini Risk Assessment Model: Point Value = 1 Point Value = 2 Point Value = 3 Point Value = 5 Age 41-60 Minor surgery BMI > 25 kg/m2 Swollen legs Varicose veins or History of unexplained or recurrent spontaneous Oral contraceptives or hormone replacement Sepsis (< 1 month) Serious lung disease, including pneumonia (< 1 month) Abnormal pulmonary function Acute myocardial infarction Congestive heart failure (< 1 month) History of inflammatory bowel disease Medical patient at bed rest Age 61-74 Arthroscopic surgery Major open surgery (> 45 min) Laparoscopic surgery (> 45 min) Malignancy Confined to bed (> 72 hours) Immobilizing plaster cast Central venous access Age >= 75 History of VTE Family history of VTE Factor V Leiden Prothrombin [id number] Lupus anticoagulant Anticardiolipin antibodies Elevated serum homocysteine Heparin-induced thrombocytopenia Other congenital or acquired thrombophilia Stroke (< 1 month) Elective arthroplasty Hip, pelvis, or leg fracture Acute spinal cord injury (< 1 month) Prophylaxis Regimen: Total Risk Factor Score Risk Level Prophylaxis Regimen 0-1 Low Early ambulation 2 Moderate Order ONE of the following: *Sequential Compression Device (SCD) *Heparin 5000 units SQ BID 3-4 Higher Order ONE of the following medications: *Heparin 5000 units SQ TID *Enoxaparin/Lovenox 40 mg SQ daily (WT < 150 kg, CrCl > 30 mL/min) *Enoxaparin/Lovenox 30 mg SQ daily (WT < 150 kg, CrCl > 10-29 mL/min) *Enoxaparin/Lovenox 30 mg SQ BID (WT < 150 kg, CrCl > 30 mL/min) AND/OR *Sequential Compression Device (SCD) 5 or more Highest Order ONE of the following medications: *Heparin 5000 units SQ TID (Preferred with Epidurals) *Enoxaparin/Lovenox 40 mg SQ daily (WT < 150 kg, CrCl > 30 mL/min) *Enoxaparin/Lovenox 30 mg SQ daily (WT < 150 kg, CrCl > 10-29 mL/min) *Enoxaparin/Lovenox 30 mg SQ BID (WT < 150 kg, CrCl > 30 mL/min) AND *Sequential Compression Device (SCD) Assessment and Plan - Assessment (1) UTI (urinary tract infection) Code(s): N39.0 - Urinary tract infection, site not specified Status: Acute - Assessment and Plan transfer to main hospital for ortho eval Discharge Planning: snf
[2017-09-20] MEDS: Acetaminophen/Codeine 300/30 MG Tablet PO PRN ×2 (11:48→21:22)
[2017-09-20] MEDS: Metoprolol Tartrate 50 MG Tablet PO SCH (21:23)
[2017-09-20] MEDS: [UNRECOGNIZED DRUG - OTHER] TOPICAL SCH (22:32)
[2017-09-21] MEDS: Sod Chloride 0.9% Inj 1,000 ML IV.CONT SCH ×3 (04:59→19:30)
[2017-09-21] MEDS: Acetaminophen/Codeine 300/30 MG Tablet PO PRN ×2 (06:07→20:59)
[2017-09-21] MEDS: Metoprolol Tartrate 50 MG Tablet PO SCH ×2 (08:12→20:59)
[2017-09-21] MEDS: Folic Acid 1 MG Tablet PO SCH (08:12)
[2017-09-21] MEDS: [UNRECOGNIZED DRUG - OTHER] TOPICAL SCH (08:16)
[2017-09-21] MEDS ORDERED: VITAMIN B12 FOLIC ACID PO SCH (09:00)
--- NOTE | 2017-09-21 09:39 | P.PNFP ---
Subjective Interval history: Found in In bed, Denies any pain or SOB Results - Labs Result diagrams: 09/20/17 06:40 09/20/17 06:40 Abnormal lab results 09/20/17 Range/Units 09:15 Urine Nitrate Positive H (Negative) Ur Leukocyte Esterase Trace H (Negative) Urine WBC 21-50 H (0-5) /hpf Urine WBC Clumps Few H (None) Ur Transition Epith Cell 1-5 H (None) /hpf Amorphous Sediment Few H (None) /hpf Urine Bacteria Many H (None) /hpf Urine Mucus Few H (Occasional) /lpf Urine 09/20/17 Range/Units 09:15 Urine Color Yellow (Yellw/Straw) Urine Clarity Slightly cloudy (Clear) Urine pH 6.0 (5.0-8.5) Ur Specific [place] 1.025 (1.002-1.035) Urine Protein Negative (Neg-Trace) mg/dL Urine Glucose (UA) Negative (Negative) mg/dL Physical Exam Vital signs: Vital Signs 09/20/17 10:15 09/20/17 12:00 09/20/17 16:00 Temperature 97.1 F L 96.1 F L Pulse Rate 80 79 85 Respiratory Rate 16 20 20 Blood Pressure 171/84 H 173/77 H 186/83 H Pulse Oximetry 93 L 99 99 09/20/17 20:00 09/20/17 21:19 09/21/17 00:00 Temperature 98.1 F 98.1 F 98 F Pulse Rate 115 H 100 H 117 H Respiratory Rate 20 20 20 Blood Pressure 197/102 H 219/111 H Pulse Oximetry 98 96 97 09/21/17 01:19 09/21/17 04:00 Temperature 96.6 F L Pulse Rate 72 74 Respiratory Rate 20 20 Blood Pressure 172/81 H 186/85 H Pulse Oximetry 95 Intake & Output 09/20/17 09/21/17 09/21/17 18:59 06:59 18:59 Intake Total 997 / 997 1999 / 1999 1000 / 1000 Output Total 700 / 700 50 / 50 Balance 297 / 297 1950 / 1950 1000 / 1000 Weight 47.9 kg 49.4 kg Intake: IV 700 / 700 1999 / 1999 1000 / 1000 NS Inj 1,000 ML @ 100 mls/hr IV 600 / 600 1999 / 1999 1000 / 1000 .CONT .Q10H [facility] Rx#:[id number] Rocephin Inj 1,000 MG In NS Inj 100 / 100 100 ML @ 200 mls/hr IV.SIG ONCE ONE Rx#:[id number] Oral 297 / 297 0 / 0 Output: Urine Amount (Catheter) 700 / 700 50 / 50 Indwelling Urethral Catheter 700 / 700 50 / 50 Other: # Voids 1,575 Date of Last Bowel Movement 09/19/17 Weight On Admission 47.9 kg - Constitutional no acute distress, thin - Routine HEENT Exam Eye: Present: PERRL ENT: Present: mucous membranes moist - Routine Neck Exam Present: supple - Routine Respiratory Exam Present: CTA bilaterally - Routine Cardiovascular Exam Present: S1, S2 - Routine Abdominal Exam Present: soft, normoactive bowel sounds - Routine Skin Exam Present: dry, warm - Routine Neurological Exam Present: alert - Routine Psychiatric Exam Present: cooperative - Urinary Catheter Management Indwelling Urethral Catheter Cath placed during this visit: yes, but has since been removed by the nurse Reason for continuing: Decision to DC catheter Insertion date: 09/20/17 Insertion time: 09:15 Removal date: 09/21/17 Removal time: 06:05 Assessment and Plan - Assessment (1) Hemarthrosis Code(s): M25.00 - Hemarthrosis, unspecified joint Status: Acute (2) Inability to ambulate due to knee Code(s): R26.2 - Difficulty in walking, not elsewhere classified Status: Acute (3) HTN (hypertension) Code(s): I10 - Essential (primary) hypertension Status: Acute Plan: Cont home medications, Monitor - Assessment and Plan Patient will need rehab. [facility] referral pain management
[2017-09-22] MEDS: [UNRECOGNIZED DRUG - OTHER] TOPICAL SCH ×3 (04:24→21:36)
[2017-09-22] MEDS: Sod Chloride 0.9% Inj 1,000 ML IV.CONT SCH ×3 (04:28→19:57)
[2017-09-22] MEDS: Folic Acid 1 MG Tablet PO SCH (08:24)
[2017-09-22] MEDS: Metoprolol Tartrate 50 MG Tablet PO SCH ×2 (08:25→21:36)
[2017-09-22 10:41] LABS: Hematocrit 36.7 % (35.0-46.0); Hemoglobin 12.3 gm/dL (11.6-15.3); Mean Corpuscular HGB Conc 33.4 % (32.0-36.0); Mean Corpuscular Hemoglobin 31.9 pg (27.0-34.0); Mean Corpuscular Volume 95.5 fL (80.0-100.0); Mean Platelet Volume 8.9 fL (7.0-11.0); Platelet Count 195 th/mm3 (150-450); Red Blood Count 3.84 mil/mm3 (4.00-5.30); Red Cell Distribution Width 13.7 % (11.6-17.2); White Blood Count 8.9 th/mm3 (4.0-11.0)
[2017-09-22 10:50] LABS: Chloride 111 meq/L (98-107); Potassium 3.5 meq/L (3.5-5.1); Sodium 144 meq/L (136-145)
[2017-09-22 10:52] LABS: Anion Gap 6 meq/L (5-15); Blood Urea Nitrogen 17 mg/dL (7-18); Calcium 8.6 mg/dL (8.5-10.1); Carbon Dioxide 27.2 meq/L (21.0-32.0); Glucose,Random 83 mg/dL (74-106)
[2017-09-22 10:56] LABS: Glomerular Filtration Rate Greater Than 89 mL/min (>89)
--- NOTE | 2017-09-22 11:12 | P.PNFP ---
Subjective Interval history: Slept well, Pain controlled to knee Denies CP, SOB Results - Labs Result diagrams: 09/22/17 10:37 09/22/17 10:37 Abnormal lab results 09/20/17 09/22/17 09/22/17 Range/Units 09:15 10:37 10:37 RBC 3.84 L (4.00-5.30) mil/mm3 Chloride 111 H (98-107) meq/L Urine Nitrate Positive H (Negative) Ur Leukocyte Esterase Trace H (Negative) Urine WBC 21-50 H (0-5) /hpf Urine WBC Clumps Few H (None) Ur Transition Epith Cell 1-5 H (None) /hpf Amorphous Sediment Few H (None) /hpf Urine Bacteria Many H (None) /hpf Urine Mucus Few H (Occasional) /lpf Short CBC 09/22/17 Range/Units 10:37 WBC 8.9 (4.0-11.0) th/mm3 Hgb 12.3 (11.6-15.3) gm/dL Hct 36.7 (35.0-46.0) % Plt Count 195 (150-450) th/mm3 BMP 09/22/17 10:37 Sodium 144 Potassium 3.5 Chloride 111 H Carbon Dioxide 27.2 BUN 17 Creatinine 0.61 Calcium 8.6 Urine 09/20/17 Range/Units 09:15 Urine Color Yellow (Yellw/Straw) Urine Clarity Slightly cloudy (Clear) Urine pH 6.0 (5.0-8.5) Ur Specific [place] 1.025 (1.002-1.035) Urine Protein Negative (Neg-Trace) mg/dL Urine Glucose (UA) Negative (Negative) mg/dL Physical Exam Vital signs: Vital Signs 09/21/17 12:00 09/21/17 16:00 09/21/17 17:36 Temperature 96.3 F L 96.3 F L Pulse Rate 72 78 77 Respiratory Rate 20 20 Blood Pressure 157/82 H 197/91 H 120/79 Pulse Oximetry 97 95 09/21/17 20:00 09/22/17 00:00 09/22/17 04:00 Temperature 96.8 F L 97 F L 96 F L Pulse Rate 77 57 L 60 Respiratory Rate 20 20 20 Blood Pressure 148/72 H 121/60 162/69 H Pulse Oximetry 97 96 98 08/17/18 08:00 Temperature 97.0 F L Pulse Rate 62 Respiratory Rate 17 Blood Pressure 183/83 H Pulse Oximetry 97 Intake & Output 09/21/17 09/22/17 09/22/17 18:59 06:59 18:59 Intake Total 1120 / 1120 1060 / 1060 Output Total 250 / 250 Balance 870 / 870 1060 / 1060 Weight 48.6 kg Intake: IV 1000 / 1000 1000 / 1000 NS Inj 1,000 ML @ 100 mls/hr IV 1000 / 1000 1000 / 1000 .CONT .Q10H [facility] Rx#:[id number] Oral 120 / 120 60 / 60 Output: Urine 250 / 250 Other: # Voids 5 200 Date of Last Bowel Movement 09/21/17 09/22/17 09/22/17 # Bowel Movements 3 1 - Constitutional no acute distress - Routine HEENT Exam Eye: Present: PERRL ENT: Present: mucous membranes moist - Routine Neck Exam Present: supple - Routine Respiratory Exam Present: CTA bilaterally - Routine Cardiovascular Exam Present: S1, S2 - Routine Abdominal Exam Present: soft - Routine Extremities Exam Present: edema - Routine Skin Exam Present: erythema, dry, warm, ecchymosis - Routine Neurological Exam Present: alert - Routine Psychiatric Exam Present: cooperative - Urinary Catheter Management Indwelling Urethral Catheter Cath placed during this visit: yes, but has since been removed by the nurse Reason for continuing: Decision to DC catheter Insertion date: 09/20/17 Insertion time: 09:15 Removal date: 09/21/17 Removal time: 06:05 Assessment and Plan - Assessment (1) Hemarthrosis Code(s): M25.00 - Hemarthrosis, unspecified joint Status: Acute (2) Inability to ambulate due to knee Code(s): R26.2 - Difficulty in walking, not elsewhere classified Status: Acute (3) HTN (hypertension) Code(s): I10 - Essential (primary) hypertension Status: Acute Plan: Cont home medications, Monitor - Assessment and Plan Patient will need rehab [facility] referral pain management 09/22/17- Uneventfulness reported, Juan Manuel better controlled today.Urinalysis culture grew Ecoli, will start n Macrobid 100mg bid x7 days. Evaluation pending [facility] second Choice PNR. Dc when arrangement made.
[2017-09-22] MEDS: Nitrofurantoin Monohydrate-Macrocrystal 100 MG Capsule PO SCH ×2 (13:49→17:19)
[2017-09-23] MEDS: Acetaminophen/Codeine 300/30 MG Tablet PO PRN (01:30)
[2017-09-23] MEDS: Sod Chloride 0.9% Inj 1,000 ML IV.CONT SCH (06:00)
[2017-09-23] MEDS: Folic Acid 1 MG Tablet PO SCH (08:51)
[2017-09-23] MEDS: Metoprolol Tartrate 50 MG Tablet PO SCH (08:51)
[2017-09-23] MEDS: Nitrofurantoin Monohydrate-Macrocrystal 100 MG Capsule PO SCH ×2 (08:52→17:34)
[2017-09-23] MEDS: [UNRECOGNIZED DRUG - OTHER] TOPICAL SCH (08:53)
--- NOTE | 2017-09-23 11:56 | P.PNFP ---
Subjective Interval history: She tells me the pain is controlled and she is hoping for D/C to rehab soon. She was on Eliquis and it is on hold. Will likely restart next week. Results - Labs Result diagrams: 09/22/17 10:37 09/22/17 10:37 Physical Exam Vital signs: Vital Signs 09/22/17 11:58 09/22/17 16:00 09/22/17 20:00 Temperature 96.8 F L 97.2 F L 97.6 F Pulse Rate 56 L 60 87 Respiratory Rate 17 17 20 Blood Pressure 134/59 L 138/64 171/78 H Pulse Oximetry 98 98 97 09/23/17 00:00 09/23/17 07:41 09/23/17 08:40 Temperature 98.9 F 96.1 F L Pulse Rate 67 73 Respiratory Rate 20 20 Blood Pressure 142/71 H 178/80 H 164/78 H Pulse Oximetry 93 L 98 09/23/17 11:09 Temperature 96.4 F L Pulse Rate 71 Respiratory Rate 20 Blood Pressure 120/58 L Pulse Oximetry 98 Intake & Output 09/22/17 09/23/17 09/23/17 18:59 06:59 18:59 Intake Total 720 / 720 2120 / 2120 Output Total 900 / 900 400 / 400 Balance -180 / -180 1720 / 1720 Weight 52.4 kg Intake: IV 1999 NS Inj 1,000 ML @ 100 mls/hr IV 1999 .CONT .Q10H [facility] Rx#:[id number] Oral 720 / 720 120 / 120 Output: Urine 900 / 900 400 / 400 Other: # Voids 3 Date of Last Bowel Movement 09/22/17 09/23/17 # Bowel Movements 1 # Incontinent Bowel Movements 5 - Constitutional no acute distress - Routine HEENT Exam Head: Present: normocephalic Eye: Present: EOMI, PERRL ENT: Present: mucous membranes moist - Routine Neck Exam Present: supple - Routine Respiratory Exam Present: CTA bilaterally - Routine Cardiovascular Exam Present: RRR, S1, S2 - Routine Abdominal Exam Present: soft, normoactive bowel sounds - Routine Skin Exam Comments: Mult abrasion and contusions noted. - Routine Neurological Exam Present: alert, oriented X3 - Detailed Neurological Exam: Coma Scale Eye Opening: Spontaneous Verbal Response: Oriented Motor Response: Obey commands [place] Coma Scale Total: 15 - Routine Psychiatric Exam Present: normal affect - Urinary Catheter Management Indwelling Urethral Catheter Cath placed during this visit: yes, but has since been removed by the nurse Reason for continuing: Decision to DC catheter Insertion date: 09/20/17 Insertion time: 09:15 Removal date: 09/21/17 Removal time: 06:05 Assessment and Plan - Assessment (1) Hemarthrosis Code(s): M25.00 - Hemarthrosis, unspecified joint Status: Acute Plan: Cont therapy and mobilize. Control pain and hold coag therapy for now. (2) Inability to ambulate due to knee Code(s): R26.2 - Difficulty in walking, not elsewhere classified Status: Acute Plan: Cont therapy and plan D/C to rehab when bed available. [facility] (3) HTN (hypertension) Code(s): I10 - Essential (primary) hypertension Status: Acute Plan: Cont home medications, Monitor - Assessment and Plan Patient will need rehab [facility] referral pain management 09/22/17- Uneventfulness reported, Juan Manuel better controlled today.Urinalysis culture grew Ecoli, will start n Macrobid 100mg bid x7 days. Evaluation pending [facility], second Choice PNR. Dc when arrangement made. 09/23/17 - Turned down for rehab at [facility]. Waiting to here from Rehab. She tells me the pain is controlled. Will need to restart coag therapy when safe S/P mult contusions and abrasions and hemarthrosis.
--- NOTE | 2017-09-23 13:35 | P.DS ---
Date of admission: 09/20/17 10:15 Primary care physician: Tyrell Forbes DO Attending physician on discharge: Tyrell Leidy Anticipated date of discharge: 09/23/17 Brief History from admission: She presented after a fall and was adm for eval and treatment of hemarthrosis and mult contusions. She is medically cleared for D/C to SNF at this time. Her Eliquis should be resumed when her hemarthrosis has resolved. Her multiple xrays revealed no fractures or dislocations. She will F/U with the physician in the SNF and we will see her back in our office after she returns home. DS: Diagnosis - Discharge Diagnosis (1) Hemarthrosis Status: Acute (2) Inability to ambulate due to knee Status: Acute (3) HTN (hypertension) Status: Acute DS: Summary Hospital Course: She fell and sustained mult contusion and abrasions and a severe hemarthrosis of the knee and has not been able to ambulate due to the pain. She had been on Eliquis which was placed on hold. Xrays reveal no evidence fractures or dislocations. She is medically cleared for D/C to the SNF and we will F/U after her eventual D/C home from the SNF. Eliquis should be resumed when the hemarthrosis resolves. - Time Spent with Patient Total time spent providing and/or coordinating discharge services: Less than 30 minutes - Quality: AMI Clinical Trial Participant: No Contraindication-Aspirin: Medical contraindication - Quality: VTE Contraindication No VTE Prophylaxis: Contraindicated Deep Vein Thrombosis/Pulmonary Embolism Present on Admission: No Exam Vital signs: Vital Signs 09/22/17 16:00 09/22/17 20:00 09/23/17 00:00 Temperature 97.2 F L 97.6 F 98.9 F Pulse Rate 60 87 67 Respiratory Rate 17 20 20 Blood Pressure 138/64 171/78 H 142/71 H Pulse Oximetry 98 97 93 L 09/23/17 07:41 09/23/17 08:40 09/23/17 11:09 Temperature 96.1 F L 96.4 F L Pulse Rate 73 71 Respiratory Rate 20 20 Blood Pressure 178/80 H 164/78 H 120/58 L Pulse Oximetry 98 98 09/23/17 12:35 09/23/17 12:45 Temperature Pulse Rate Respiratory Rate 22 19 Blood Pressure Pulse Oximetry 88 L 99 Intake & Output 08/17/18 08/18/18 08/18/18 18:59 06:59 18:59 Intake Total 720 / 720 2120 / 2120 Output Total 900 / 900 400 / 400 Balance -180 / -180 1720 / 1720 Weight 52.4 kg Intake: IV 1999 NS Inj 1,000 ML @ 100 mls/hr IV 1999 .CONT .Q10H [facility] Rx#:[id number] Oral 720 / 720 120 / 120 Output: Urine 900 / 900 400 / 400 Other: # Voids 3 Date of Last Bowel Movement 09/22/17 09/23/17 # Bowel Movements 1 # Incontinent Bowel Movements 5 Results Procedures completed during hospitalization: none Completed studies during hospitalization: radiographs Pending studies at discharge: none Labs on day of discharge: none - Impressions ITS Impressions Femur X-Ray 09/20/17 06:29 CONCLUSION: Chronic changes and no definite fracture for technique. Head CT 09/20/17 06:29 CONCLUSION: Slight chronic small vessel ischemic and atrophic changes. . Pelvis X-Ray 09/20/17 06:29 CONCLUSION: Chronic changes and no definite fracture for technique. Knee CT 09/20/17 08:28 CONCLUSION: 1. Knee prosthesis generates beam hardening artifact which limits the study. 2. No fracture or dislocation. 3. Small joint effusion. Discharge Plan - Discharge Disposition Patient Disposition: Discharge to SNF - Discharge Condition Condition: Stable - Discharge Order Discharge Orders: Discharge Order (Routine); Ordered 09/23/17 Ordered By: Lazaro Gonzalez - Discharge Details Anticipated Discharge Date: 09/23/17 - Physicians Team Primary Care Provider: Tyrell Forbes Attending Provider: Tyrell Forbes [facility]
== END 2017-09-23 17:53 ==
LOC: PHED 06:09 → PHEDA 10:15 → PH3 13:13
PROVIDERS: ADMIT Family Medicine; ATTEND Family Medicine

== ENCOUNTER 2018-04-02 10:47 | Inpatient (IN) ==
--- NOTE | 2018-04-02 11:34 | ED ---
HPI General Chief complaint: Dizziness Stated complaint: Poss AMS/Dizziness Time Seen by Provider: 04/02/18 11:10 Source: patient Mode of arrival: ambulatory Limitations: no limitations History of Present Illness HPI narrative: 82 female with a past medical history of alzheimer's and arrhythmia (on blood thinners) presents to the ED for evaluation of possible syncopal event. Patient's states that they were in the doctors office this morning when she seemed to fall asleep in the wheel chair and almost fell out of it. She states that she felt dizzy beforehand. Patient's says that she has been doing this periodically over the last couple of months and that she recovers to baseline shortly after the events. She denies headache, chest pain, shortness of breath, N/V, weakness, changes in thirst/appetite, and vision loss/changes. states that she has been progressively weakening and is unable to take care of her basic needs. He states that they have a home health nurse and PT that comes to the house twice a week but that he is the primary client care consultant. He expresses concern about his abilities to care for her but does not want to put her back in a senior care. The patient also complains of a long standing rash on her back chest and shoulders that has been treated repeatedly by a efficiency clerk but has not resolved. The states that the creams they have been given help with the itching but do not improve the rash. Related Data Home Medications Medication Instructions Recorded Confirmed apixaban [Eliquis] 2.5 mg PO BID 12/02/17 04/02/18 meclizine 25 mg PO TID PRN 04/02/18 04/02/18 memantine [Namenda] 5 mg PO BID 04/02/18 04/02/18 triamcinolone acetonide 1 applic TOPICAL DAILY 04/02/18 04/02/18 Previous Rx's Medication Instructions Recorded cyanocobalamin (vitamin B-12) 500 mcg PO DAILY tab 09/23/17 [Vitamin B-12] metoprolol tartrate 50 mg PO BID #0 tab 09/23/17 Allergies Allergy/AdvReac Type Severity Reaction Status Date / Time peanut Allergy Intermediate Swelling Verified 04/02/18 11:08 strawberry Allergy Intermediate Swelling Verified 04/02/18 11:08 zolpidem AdvReac Severe Confusion Verified 04/02/18 11:08 Review of Systems ROS: all other systems reviewed are negative [facility] Medical History Medical History Cardiac disorder (Acute) Dementia (Acute) Femur fracture (Acute) HBP (high blood pressure) (Acute) Surgical History Surgical History History of knee surgery (Acute) Social History Social History Substance History: No History of Abuse Second Hand Smoke Exposure: No Smoking Status: Former smoker Tobacco Type: Cigarettes How Often Do You Have a Drink Containing Alcohol: Never Recent Out of Country Travel within the Last 8 Weeks: No Immunization History Tetanus Immunization: Unsure Exam Narrative Exam Narrative: GENERAL: Well-appearing in no distress. Somewhat cachectic. SKIN: Focused skin assessment warm/dry. Patient does have multiple bruising throughout her body. Some of it appears to be also appears to be new. She is on blood thinners. HEAD: Atraumatic. Normocephalic. EYES: Pupils equal and round. No scleral icterus. No injection or drainage. ENT: No nasal bleeding or discharge. Mucous membranes pink and moist. Tongue is midline. No blood deviation. NECK: Trachea midline. No JVD. CARDIOVASCULAR: Regular rate and rhythm. No murmur appreciated. RESPIRATORY: No accessory muscle use. Clear to auscultation. Breath sounds equal bilaterally. GASTROINTESTINAL: Abdomen soft, non-tender, nondistended. Hepatic and splenic margins not palpable. MUSCULOSKELETAL: No obvious deformities. No clubbing. No cyanosis. No edema. Full range of motion of the upper and lower extremities bilaterally. 2+ pulses bilaterally. NEUROLOGICAL: Awake and alert. No obvious cranial nerve deficits. Motor grossly within normal limits. Normal speech. PSYCHIATRIC: Appropriate mood and affect; insight and judgment normal. Course Initial Documented Vital Signs Temperature 97.9 F 04/02/18 11:08 Pulse Rate 61 04/02/18 11:08 Respiratory Rate 25 H 04/02/18 11:08 Blood Pressure 123/66 04/02/18 11:08 Pulse Oximetry 97 04/02/18 11:08 Last Documented Vital Signs Temperature 97.9 F 04/02/18 11:08 Pulse Rate 61 04/02/18 11:08 Respiratory Rate 25 H 04/02/18 11:08 Blood Pressure 123/66 04/02/18 11:08 Pulse Oximetry 97 04/02/18 11:08 Medical Decision Making MDM Narrative Medical decision making narrative: Patient himself does not want to be admitted but who is power of assistant city attorney does want this done.82-year-old female that presents to the ED for evaluation of altered mental status. Labs and imaging ordered. Labs and imaging showed no sign of acute disease. Multiple chronic disorders. At this time because patient questionable had syncope I do recommend admission for further evaluation and treatment. Patient did not initially want to be admitted but after some counseling by her as well as others she was able to stay. Patient is power of assistant city attorney is her and I think is reasonable for the patient be admitted for further evaluation and treatment. Residents agrees with admission. Patient was admitted. Medical Screen Exam Complete: Yes Emergency Medical Condition: Yes Differential Diagnosis Differential Diagnosis: Altered mental status versus ACS versus UTI versus sepsis versus C. difficile versus TIA versus CVA versus syncope Medical Records Medical records reviewed: Yes I reviewed the patient's medical records. Lab Data Lab results reviewed: Yes I reviewed the patient's lab results. Result diagrams: 04/02/18 11:30 04/02/18 11:30 Lab Results 04/02/18 04/02/18 04/02/18 Range/Units 11:30 11:30 11:30 WBC 10.4 (4.0-11.0) th/mm3 RBC 4.31 (4.00-5.30) mil/mm3 Hgb 13.9 (11.6-15.3) gm/dL Hct 42.1 (35.0-46.0) % MCV 97.7 (80.0-100.0) fL MCH 32.1 (27.0-34.0) pg MCHC 32.9 (32.0-36.0) % RDW 15.1 (11.6-17.2) % Plt Count 232 (150-450) th/mm3 MPV 10.0 (7.0-11.0) fL Neut % (Auto) 70.7 H (16.0-70.0) % Lymph % (Auto) 12.0 (9.0-44.0) % Hernando % (Auto) 8.8 H (0.0-8.0) % Eos % (Auto) 7.4 H (0.0-4.0) % Baso % (Auto) 1.1 (0.0-2.0) % Neut # (Auto) 7.4 (1.8-7.7) th/mm3 Lymph # (Auto) 1.2 (1.0-4.8) th/mm3 Hernando # (Auto) 0.9 (0.0-0.9) th/mm3 Eos # (Auto) 0.8 H (0.0-0.4) th/mm3 Baso # (Auto) 0.1 (0.0-0.2) th/mm3 WBC Differential . Differential Comment Auto diff final PT 10.4 (9.8-11.6) sec INR 1.0 Ratio APTT 24.7 (23.4-31.7) sec Sodium 142 (136-145) meq/L Potassium 4.5 (3.5-5.1) meq/L Chloride 110 H (98-107) meq/L Carbon Dioxide 24.3 (21.0-32.0) meq/L Anion Gap 8 (5-15) meq/L BUN 24 H (7-18) mg/dL Creatinine 1.09 H (0.50-1.00) mg/dL Estimated GFR 48 L (>89) mL/min Random Glucose 73 L (74-106) mg/dL Calcium 8.7 (8.5-10.1) mg/dL Magnesium 2.2 (1.5-2.5) mg/dL Total Bilirubin 0.3 (0.2-1.0) mg/dL AST 29 (15-37) U/L ALT 22 (10-53) U/L Alkaline Phosphatase 116 (45-117) U/L Ammonia (11-32) mcmol/L Total Creatine Kinase 59 (26-192) U/L Troponin I Less than 0.02 L (0.02-0.05) ng/mL Total Protein 7.4 (6.4-8.2) g/dL Albumin 3.1 L (3.4-5.0) g/dL TSH 5.890 H (0.358-3.740) uIU/mL 04/02/18 Range/Units 11:59 WBC (4.0-11.0) th/mm3 RBC (4.00-5.30) mil/mm3 Hgb (11.6-15.3) gm/dL Hct (35.0-46.0) % MCV (80.0-100.0) fL MCH (27.0-34.0) pg MCHC (32.0-36.0) % RDW (11.6-17.2) % Plt Count (150-450) th/mm3 MPV (7.0-11.0) fL Neut % (Auto) (16.0-70.0) % Lymph % (Auto) (9.0-44.0) % Hernando % (Auto) (0.0-8.0) % Eos % (Auto) (0.0-4.0) % Baso % (Auto) (0.0-2.0) % Neut # (Auto) (1.8-7.7) th/mm3 Lymph # (Auto) (1.0-4.8) th/mm3 Hernando # (Auto) (0.0-0.9) th/mm3 Eos # (Auto) (0.0-0.4) th/mm3 Baso # (Auto) (0.0-0.2) th/mm3 WBC Differential Differential Comment PT (9.8-11.6) sec INR Ratio APTT (23.4-31.7) sec Sodium (136-145) meq/L Potassium (3.5-5.1) meq/L Chloride (98-107) meq/L Carbon Dioxide (21.0-32.0) meq/L Anion Gap (5-15) meq/L BUN (7-18) mg/dL Creatinine (0.50-1.00) mg/dL Estimated GFR (>89) mL/min Random Glucose (74-106) mg/dL Calcium (8.5-10.1) mg/dL Magnesium (1.5-2.5) mg/dL Total Bilirubin (0.2-1.0) mg/dL AST (15-37) U/L ALT (10-53) U/L Alkaline Phosphatase (45-117) U/L Ammonia Less than 10 L (11-32) mcmol/L Total Creatine Kinase (26-192) U/L Troponin I (0.02-0.05) ng/mL Total Protein (6.4-8.2) g/dL Albumin (3.4-5.0) g/dL TSH (0.358-3.740) uIU/mL Imaging Data Attestation: I personally reviewed and interpreted this imaging study as follows : Radiologist's impression: Chest X-Ray 04/02/18 11:31 CONCLUSION: Developing parenchymal changes left base. Mild interstitial edema. Head CT 04/02/18 11:31 CONCLUSION: Atrophy, mild ventricular prominence, out of proportion to the degree of sulcal dilatation Massimo Barrios MD FACR . . ECG Data Attestation: I personally reviewed and interpreted this ECG as follows: Interpretation: EKG shows sinus bradycardia but no sign of acute ischemia read by me and attending. Ventricular rate of 58 bpm, IN interval 189 ms. Discharge Plan Discharge Disposition Patient Disposition: ED Admit(ED Internal Use Only) Discharge Order Discharge Orders: ED Use Only Admit Order (Routine); Ordered 04/02/18 Ordered By: Serafin Basurto Discharge Details Diagnosis: Syncope Physicians Team ED Provider: Ney Noonan ED Midlevel Provider: Serafin Basurto Primary Care Provider: Marcus Meneses Attending Provider: Chandan Ramirez Status ED Status: Admitted Observation Patient
--- NOTE | 2018-04-02 11:55 | CT ---
EXAM DATE: 04/02/2018 11:51 AM EST AGE/SEX: 82 years / Female INDICATIONS: Dizziness CLINICAL DATA: This is the patient's initial encounter. Patient reports that signs and symptoms have been present for 1 day and indicates a pain score of 0/10. MEDICAL/SURGICAL HISTORY: Dementia. None. RADIATION DOSE: 56.35 CTDI (mGy) COMPARISON: [facility], CT HEAD W/O CONTRAST, 01/05/2018. . TECHNIQUE: CT of the head without contrast. Using automated exposure control and adjustment of the mA and/or kV according to patient size, radiation dose was kept as low as reasonably achievable to ob tain optimal diagnostic quality images. DICOM format image data is available electronically for revi ew and comparison. FINDINGS: There is central and cortical atrophy with dilatation of ventricular and sulcal spaces. The ventricle s are slightly larger than one would like to see with this degree of cortical atrophy. There is no pa renchymal hemorrhage, acute infarction or mass lesion identified. There are no extra-axial fluid col lections appreciated. Periventricular white matter changes are noted. The posterior fossa is unremarkable with midline fourth ventricle. The portion of the orbits and para nasal sinuses visualized are unremarkable. CONCLUSION: Atrophy, mild ventricular prominence, out of proportion to the degree of sulcal dilatati on Massimo Barrios MD FACR . . Electronically signed by: Massimo Barrios MD Board Certified Radiologist 04/02/2018 11:53 AM EST
[2018-04-02 12:02] LABS: Baso # (Auto) 0.1 th/mm3 (0.0-0.2); Baso % (Auto) 1.1 % (0.0-2.0); Eos # (Auto) 0.8 th/mm3 (0.0-0.4); Eos % (Auto) 7.4 % (0.0-4.0); Hematocrit 42.1 % (35.0-46.0); Hemoglobin 13.9 gm/dL (11.6-15.3); Lymph # (Auto) 1.2 th/mm3 (1.0-4.8); Mean Corpuscular HGB Conc 32.9 % (32.0-36.0); Mean Corpuscular Hemoglobin 32.1 pg (27.0-34.0); Mean Corpuscular Volume 97.7 fL (80.0-100.0); Mono # (Auto) 0.9 th/mm3 (0.0-0.9); Mono % (Auto) 8.8 % (0.0-8.0); Neut # (Auto) 7.4 th/mm3 (1.8-7.7); Neut % (Auto) 70.7 % (16.0-70.0); Platelet Count 232 th/mm3 (150-450); Red Blood Count 4.31 mil/mm3 (4.00-5.30); Red Cell Distribution Width 15.1 % (11.6-17.2); White Blood Count 10.4 th/mm3 (4.0-11.0)
[2018-04-02 12:14] LABS: Activated Partial Thrombo Time 24.7 sec (23.4-31.7); Prothrombin Time 10.4 sec (9.8-11.6)
--- NOTE | 2018-04-02 12:32 | XR ---
EXAM DATE: 04/02/2018 12:24 PM EST AGE/SEX: 82 years / Female INDICATIONS: Cough. CLINICAL DATA: This is the patient's initial encounter. Patient reports that signs and symptoms have been present for 1 day and indicates a pain score of 0/10. MEDICAL/SURGICAL HISTORY: Dementia. None. COMPARISON: [facility], CHEST SINGLE AP, 08/29/2016. . FINDINGS: Heart is enlarged with mild interstitial edema present. The right lung is clear. Moderate parenchymal changes are present in the left base and some air bronchograms evident. There is no pneumothorax. CONCLUSION: Developing parenchymal changes left base. Mild interstitial edema. Electronically signed by: Massimo Barrios MD Board Certified Radiologist 04/02/2018 12:30 PM EST
[2018-04-02 12:38] LABS: Alanine Aminotransferase 22 U/L (10-53); Albumin 3.1 g/dL (3.4-5.0); Alkaline Phosphatase 116 U/L (45-117); Anion Gap 8 meq/L (5-15); Aspartate Aminotransferase 29 U/L (15-37); Blood Urea Nitrogen 24 mg/dL (7-18); Calcium 8.7 mg/dL (8.5-10.1); Carbon Dioxide 24.3 meq/L (21.0-32.0); Chloride 110 meq/L (98-107); Glomerular Filtration Rate 48 mL/min (>89); Glucose,Random 73 mg/dL (74-106); Magnesium 2.2 mg/dL (1.5-2.5); Potassium 4.5 meq/L (3.5-5.1); Sodium 142 meq/L (136-145); Total Protein 7.4 g/dL (6.4-8.2)
[2018-04-02 12:44] LABS: Creatine Kinase 59 U/L (26-192)
--- NOTE | 2018-04-02 14:17 | P.HPFP ---
History of Present Illness Primary Care Physician: Marcus Meneses MD <LowChandan gonzales 04/03/18 07:47> Marcus Meneses MD <Lucia Hart 04/02/18 17:58> Chief Complaint: Syncope <Lucia Hart 04/02/18 17:58> History of Present Illness: Patient is an 82 year old female who reports to the [facility] ED via EMS after a syncopal episode at her PCP's office earlier today. PCP is Dr. Meneses. Per patient, she was sitting in the exam room, waiting for the doctor, when she suddenly felt "terribly" dizzy. She doesn't remember anything else until her evaluation by EMS. Per patient's , his started yawning and appeared to be falling asleep in the exam room. She was sliding out of wheelchair, almost falling to the ground. The patient was unresponsive at that time. "She fainted." By the time EMS arrived, patient was back to baseline. He also reports recent episodes of weakness x3. Last episode took place one week ago when patient could not get out of her wheelchair, had to be carried to the bed, but was back to normal/baseline within minutes of resting. She remained responsive during those episodes. Of note, patient suffered femur fracture in fall 2018. She continues to fall despite use of walker; she fell 8 times last month. She lives with her , who is her primary social media director. She is unable to perform ADLs independently. Patient has a hospital bed and bedside commode at home. She has regular nursing visits for wound management and home PT. <Lucia Hart 04/02/18 17:58> - Diagnosis (1) Syncope (2) Sinus bradycardia (3) Frequent falls (4) Nutrition, metabolism, and development symptoms (5) DVT prophylaxis <Chandan Ramirez 04/03/18 07:47> (1) Syncope (2) Sinus bradycardia (3) Frequent falls (4) Nutrition, metabolism, and development symptoms (5) DVT prophylaxis <Lucia Hart 04/02/18 17:15> Review of Systems All other systems reviewed negative except as stated in HPI <Lucia Hart 04/02/18 16:09> PMFSH - History History Provided By: Patient (Limited history), Family Member <Lucia Hart 04/02/18 17:58> - Medical History Medical History: Medical History (Last Updated 04/02/18 @ 16:04 by Lucia Blood MD, R2) A-fib Femur fracture Skin rash Sundowning Dementia HBP (high blood pressure) <Chandan Ramirez 04/03/18 07:47> Medical History (Last Updated 04/02/18 @ 16:04 by Lucia Blood MD, R2) A-fib Femur fracture Skin rash Sundowning Dementia HBP (high blood pressure) <Lucia Hart 04/02/18 16:09> - Surgical History Surgical History: Surgical History (Last Updated 04/02/18 @ 16:05 by Lucia Blood MD, R2) History of endarterectomy History of heart artery stent History of orthopedic surgery History of knee surgery <Chandan Ramirez 04/03/18 07:47> Surgical History (Last Updated 04/02/18 @ 16:05 by Lucia Blood MD, R2) History of endarterectomy History of heart artery stent History of orthopedic surgery History of knee surgery <Lucia Hart 04/02/18 16:09> - Family History Family History: Family History (Last Updated 04/02/18 @ 16:05 by Lucia Blood MD, R2) Other Family history of heart disease <Chandan Ramirez 04/03/18 07:47> Family History (Last Updated 04/02/18 @ 16:05 by Lucia Blood MD, R2) Other Family history of heart disease <Lucia Hart 04/02/18 16:09> - Social History I have reviewed the patient's Social History: Yes <Lucia Hart 16:09> - Tobacco History Second Hand Smoke Exposure: No <Lucia Hart 04/02/18 14:16> Tobacco Use In Past 30 Days: No <Lucia Hart 04/02/18 14:16> Smoking Status: Former smoker <Lucia Hart 04/02/18 14:16> Tobacco Type: Cigarettes <Lucia Hart 04/02/18 14:16> - Alcohol History How Often Do You Have a Drink Containing Alcohol: Never <Lucia Hart 04/02/18 14:16> - Substance Use History Substance History: No History of Abuse <Lucia Hart 04/02/18 14:16> - Travel History History of Recent Travel: No <Lucia Hart 04/02/18 16:09> Recent Travel in the [place] Within the Last 8 Weeks: No <Lucia Hart 16:09> Recent Travel Out of the Country Within the Last 8 Weeks: No <Lucia Hart 04/02/18 14:16> - Immunization History Tetanus Immunization: Unsure <Chikis Hartstin 04/02/18 14:16> Medications and Allergies Allergies Allergy/AdvReac Type Severity Reaction Status Date / Time peanut Allergy Intermediate Swelling Verified 04/02/18 11:08 strawberry Allergy Intermediate Swelling Verified 04/02/18 11:08 zolpidem AdvReac Severe Confusion Verified 04/02/18 11:08 <Chandan Ramirez - 04/03/18 07:47> Home Medications Medication Instructions Recorded Confirmed Type apixaban [Eliquis] 2.5 mg PO BID 12/02/17 04/02/18 History meclizine 25 mg PO TID PRN 04/02/18 04/02/18 History memantine [Namenda] 5 mg PO BID 04/02/18 04/02/18 History triamcinolone acetonide 1 applic TOPICAL DAILY 04/02/18 04/02/18 History <Chandan Ramirez - 04/03/18 07:47> Active Medications: Active Medications Acetaminophen (Tylenol) 650 mg PO Q4H PRN PRN Reason: Temp > 100.4 Apixaban (Eliquis) 2.5 mg PO BID [facility] Last Admin: 04/02/18 21:32 Dose: 2.5 mg Cyanocobalamin (Vitamin B12) 500 mcg PO DAILY [facility] Metoprolol Tartrate (Lopressor) 50 mg PO DAILY [facility] Ondansetron HCl (Zofran Inj) 4 mg IV.PUSH Q6H PRN PRN Reason: NAUSEA OR VOMITING Sodium Chloride (Ns Flush) 2 ml IV.FLUSH BID [facility] Last Admin: 04/02/18 21:30 Dose: 2 ml Sodium Chloride (Ns Flush) 2 ml IV.FLUSH PRN PRN PRN Reason: FLUSH AFTER USING IV ACCESS Triamcinolone Acetonide (Aristocort 0.1% Cream) 1 applicatio TOPICAL DAILY [facility] <Chandan Ramirez - 04/03/18 07:47> Exam Vital signs: Vital Signs 04/02/18 11:08 04/02/18 11:31 04/02/18 14:00 Temperature 97.9 F Pulse Rate 61 86 Respiratory Rate 25 H 24 Blood Pressure 123/66 100/60 Pulse Oximetry 97 96 04/02/18 15:39 04/02/18 20:00 04/02/18 23:28 Temperature 97.9 F Pulse Rate 85 77 Respiratory Rate 16 16 Blood Pressure 122/60 161/77 H 162/70 H Pulse Oximetry 97 97 97 04/03/18 07:39 Temperature 98.3 F Pulse Rate 84 Respiratory Rate 20 Blood Pressure 132/82 Pulse Oximetry 95 Intake & Output 04/02/18 04/03/18 04/03/18 18:59 06:59 18:59 Intake Total 240 / 240 1240 / 1240 Balance 240 / 240 1240 / 1240 Weight 45.359 kg Intake: IV 1000 / 1000 NS Inj 1,000 ML @ 1000 mls/hr 1000 / 1000 IV.SIG BOLUS [facility] Rx#:[id number] Oral 240 / 240 240 / 240 Other: # Voids 2 2 Date of Last Bowel Movement 04/02/18 Weight On Admission 45.359 kg <Chandan Ramirez Sejal - 04/03/18 07:47> Vital Signs 04/02/18 11:08 Temperature 97.9 F Pulse Rate 61 Respiratory Rate 25 H Blood Pressure 123/66 Pulse Oximetry 97 Intake & Output 04/01/18 04/02/18 04/02/18 18:59 06:59 18:59 Weight 45.359 kg <Lucia Hart - 04/02/18 14:16> Narrative: GENERAL: Elderly female, in no acute distress. SKIN: Warm and dry. Extensive bruising over upper and lower extremities. Erythematous rash over back, chest and upper extremity - chronic per patient. HEAD: Atraumatic. Normocephalic. EYES: Pupils equal and round. No scleral icterus. No injection or drainage. ENT: No nasal bleeding or discharge. Mucous membranes pink and moist. NECK: Trachea midline. No JVD. CARDIOVASCULAR: Bradycardic, regular rhythm. RESPIRATORY: No accessory muscle use. Clear to auscultation. Breath sounds equal bilaterally. GASTROINTESTINAL: Abdomen soft, non-tender, nondistended. Hepatic and splenic margins not palpable. MUSCULOSKELETAL: Extremities without clubbing, cyanosis, or edema. No obvious deformities. NEUROLOGICAL: Awake and alert. No obvious cranial nerve deficits. Motor grossly within normal limits. Four out of 5 muscle strength in the arms and legs. Normal speech. PSYCHIATRIC: Appropriate mood and affect; insight and judgment poor. <Lucia Hart - 04/02/18 17:58> Results - Labs Result diagrams: 04/03/18 04:25 04/03/18 04:25 <Chandan Ramirez - 04/03/18 07:47> Abnormal lab results 04/02/18 04/02/18 04/02/18 Range/Units 11:30 11:30 11:59 Neut % (Auto) 70.7 H (16.0-70.0) % [place] % (Auto) 8.8 H (0.0-8.0) % Eos % (Auto) 7.4 H (0.0-4.0) % Eos # (Auto) 0.8 H (0.0-0.4) th/mm3 Chloride 110 H (98-107) meq/L BUN 24 H (7-18) mg/dL Creatinine 1.09 H (0.50-1.00) mg/dL Estimated GFR 48 L (>89) mL/min Random Glucose 73 L (74-106) mg/dL Ammonia Less than 10 L (11-32) mcmol/L Troponin I Less than 0.02 L (0.02-0.05) ng/mL Albumin 3.1 L (3.4-5.0) g/dL TSH 5.890 H (0.358-3.740) uIU/mL Urine Clarity (Clear) Ur Leukocyte Esterase (Negative) Urine WBC (0-5) /hpf Urine Bacteria (None) /hpf 04/02/18 04/02/18 04/03/18 Range/Units 15:05 19:23 04:25 Neut % (Auto) (16.0-70.0) % [place] % (Auto) (0.0-8.0) % Eos % (Auto) (0.0-4.0) % Eos # (Auto) (0.0-0.4) th/mm3 Chloride 113 H (98-107) meq/L BUN 22 H (7-18) mg/dL Creatinine (0.50-1.00) mg/dL Estimated GFR 69 L (>89) mL/min Random Glucose (74-106) mg/dL Ammonia (11-32) mcmol/L Troponin I Less than 0.02 L (0.02-0.05) ng/mL Albumin (3.4-5.0) g/dL TSH (0.358-3.740) uIU/mL Urine Clarity Hazy H (Clear) Ur Leukocyte Esterase Moderate H (Negative) Urine WBC 15 H (0-5) /hpf Urine Bacteria Occasional H (None) /hpf Short CBC 04/02/18 04/03/18 Range/Units 11:30 04:25 WBC 10.4 9.0 (4.0-11.0) th/mm3 Hgb 13.9 13.4 (11.6-15.3) gm/dL Hct 42.1 39.8 (35.0-46.0) % Plt Count 232 239 (150-450) th/mm3 BMP 04/02/18 04/03/18 11:30 04:25 Sodium 142 143 Potassium 4.5 4.0 Chloride 110 H 113 H Carbon Dioxide 24.3 23.4 BUN 24 H 22 H Creatinine 1.09 H 0.80 Calcium 8.7 8.8 Cardiac Enzymes 04/02/18 04/02/18 04/03/18 Range/Units 11:30 19:23 04:25 Total Creatine Kinase 59 52 103 (26-192) U/L Troponin I Less than 0.02 L Less than 0.02 L 0.02 (0.02-0.05) ng/mL Liver Function 04/02/18 Range/Units 11:30 Total Bilirubin 0.3 (0.2-1.0) mg/dL AST 29 (15-37) U/L ALT 22 (10-53) U/L Alkaline Phosphatase 116 (45-117) U/L Albumin 3.1 L (3.4-5.0) g/dL Urine 04/02/18 Range/Units 15:05 Urine Color Yellow (Yellw/Straw) Urine Clarity Hazy H (Clear) Urine pH 5.0 (5.0-8.5) Ur Specific [place] 1.017 (1.002-1.035) Urine Protein Negative (Neg-Trace) mg/dL Urine Glucose (UA) Negative (Negative) mg/dL <Chandan Ramirez - 04/03/18 07:47> Abnormal lab results 04/02/18 04/02/18 04/02/18 Range/Units 11:30 11:30 11:59 Neut % (Auto) 70.7 H (16.0-70.0) % [place] % (Auto) 8.8 H (0.0-8.0) % Eos % (Auto) 7.4 H (0.0-4.0) % Eos # (Auto) 0.8 H (0.0-0.4) th/mm3 Chloride 110 H (98-107) meq/L BUN 24 H (7-18) mg/dL Creatinine 1.09 H (0.50-1.00) mg/dL Estimated GFR 48 L (>89) mL/min Random Glucose 73 L (74-106) mg/dL Ammonia Less than 10 L (11-32) mcmol/L Troponin I Less than 0.02 L (0.02-0.05) ng/mL Albumin 3.1 L (3.4-5.0) g/dL TSH 5.890 H (0.358-3.740) uIU/mL Short CBC 04/02/18 Range/Units 11:30 WBC 10.4 (4.0-11.0) th/mm3 Hgb 13.9 (11.6-15.3) gm/dL Hct 42.1 (35.0-46.0) % Plt Count 232 (150-450) th/mm3 BMP 04/02/18 11:30 Sodium 142 Potassium 4.5 Chloride 110 H Carbon Dioxide 24.3 BUN 24 H Creatinine 1.09 H Calcium 8.7 Cardiac Enzymes 04/02/18 Range/Units 11:30 Total Creatine Kinase 59 (26-192) U/L Troponin I Less than 0.02 L (0.02-0.05) ng/mL Liver Function 04/02/18 Range/Units 11:30 Total Bilirubin 0.3 (0.2-1.0) mg/dL AST 29 (15-37) U/L ALT 22 (10-53) U/L Alkaline Phosphatase 116 (45-117) U/L Albumin 3.1 L (3.4-5.0) g/dL <Lucia Hart - 04/02/18 14:16> - Imaging Impressions Carotid Doppler Study 04/02/18 00:00 CONCLUSION: 1. Right Internal Carotid Artery: Mild calcified plaque without stenosis. 2. Left Internal Carotid Artery: Mild calcified plaque without stenosis. Chest X-Ray 04/02/18 11:31 CONCLUSION: Developing parenchymal changes left base. Mild interstitial edema. Head CT 04/02/18 11:31 CONCLUSION: Atrophy, mild ventricular prominence, out of proportion to the degree of sulcal dilatation Massimo Barrios MD FACR . . <Chandan Ramirez - 04/03/18 07:47> Impressions Chest X-Ray 04/02/18 11:31 CONCLUSION: Developing parenchymal changes left base. Mild interstitial edema. Head CT 04/02/18 11:31 CONCLUSION: Atrophy, mild ventricular prominence, out of proportion to the degree of sulcal dilatation Massimo Barrios MD FACR . . <Lucia Hart - 04/02/18 14:16> Caprini VTE Risk Assessment Caprini VTE Risk Assessment: Moderate/High Risk (score >= 2) <Lucia Hart - 04/02/18 16:09> Caprini Risk Assessment Model: Point Value = 1 Point Value = 2 Point Value = 3 Point Value = 5 Age 41-60 Minor surgery BMI > 25 kg/m2 Swollen legs Varicose veins or History of unexplained or recurrent spontaneous Oral contraceptives or hormone replacement Sepsis (< 1 month) Serious lung disease, including pneumonia (< 1 month) Abnormal pulmonary function Acute myocardial infarction Congestive heart failure (< 1 month) History of inflammatory bowel disease Medical patient at bed rest Age 61-74 Arthroscopic surgery Major open surgery (> 45 min) Laparoscopic surgery (> 45 min) Malignancy Confined to bed (> 72 hours) Immobilizing plaster cast Central venous access Age >= 75 History of VTE Family history of VTE Factor V Leiden Prothrombin [id number] Lupus anticoagulant Anticardiolipin antibodies Elevated serum homocysteine Heparin-induced thrombocytopenia Other congenital or acquired thrombophilia Stroke (< 1 month) Elective arthroplasty Hip, pelvis, or leg fracture Acute spinal cord injury (< 1 month) <Chandan Ramirez - 04/03/18 07:47> Point Value = 1 Point Value = 2 Point Value = 3 Point Value = 5 Age 41-60 Minor surgery BMI > 25 kg/m2 Swollen legs Varicose veins or History of unexplained or recurrent spontaneous Oral contraceptives or hormone replacement Sepsis (< 1 month) Serious lung disease, including pneumonia (< 1 month) Abnormal pulmonary function Acute myocardial infarction Congestive heart failure (< 1 month) History of inflammatory bowel disease Medical patient at bed rest Age 61-74 Arthroscopic surgery Major open surgery (> 45 min) Laparoscopic surgery (> 45 min) Malignancy Confined to bed (> 72 hours) Immobilizing plaster cast Central venous access Age >= 75 History of VTE Family history of VTE Factor V Leiden Prothrombin [id number] Lupus anticoagulant Anticardiolipin antibodies Elevated serum homocysteine Heparin-induced thrombocytopenia Other congenital or acquired thrombophilia Stroke (< 1 month) Elective arthroplasty Hip, pelvis, or leg fracture Acute spinal cord injury (< 1 month) <Lucia Hart - 04/02/18 16:09> Prophylaxis Regimen: Total Risk Factor Score Risk Level Prophylaxis Regimen 0-1 Low Early ambulation 2 Moderate Order ONE of the following: *Sequential Compression Device (SCD) *Heparin 5000 units SQ BID 3-4 Higher Order ONE of the following medications: *Heparin 5000 units SQ TID *Enoxaparin/Lovenox 40 mg SQ daily (WT < 150 kg, CrCl > 30 mL/min) *Enoxaparin/Lovenox 30 mg SQ daily (WT < 150 kg, CrCl > 10-29 mL/min) *Enoxaparin/Lovenox 30 mg SQ BID (WT < 150 kg, CrCl > 30 mL/min) AND/OR *Sequential Compression Device (SCD) 5 or more Highest Order ONE of the following medications: *Heparin 5000 units SQ TID (Preferred with Epidurals) *Enoxaparin/Lovenox 40 mg SQ daily (WT < 150 kg, CrCl > 30 mL/min) *Enoxaparin/Lovenox 30 mg SQ daily (WT < 150 kg, CrCl > 10-29 mL/min) *Enoxaparin/Lovenox 30 mg SQ BID (WT < 150 kg, CrCl > 30 mL/min) AND *Sequential Compression Device (SCD) <AshleyChandan Post - 04/03/18 07:47> Total Risk Factor Score Risk Level Prophylaxis Regimen 0-1 Low Early ambulation 2 Moderate Order ONE of the following: *Sequential Compression Device (SCD) *Heparin 5000 units SQ BID 3-4 Higher Order ONE of the following medications: *Heparin 5000 units SQ TID *Enoxaparin/Lovenox 40 mg SQ daily (WT < 150 kg, CrCl > 30 mL/min) *Enoxaparin/Lovenox 30 mg SQ daily (WT < 150 kg, CrCl > 10-29 mL/min) *Enoxaparin/Lovenox 30 mg SQ BID (WT < 150 kg, CrCl > 30 mL/min) AND/OR *Sequential Compression Device (SCD) 5 or more Highest Order ONE of the following medications: *Heparin 5000 units SQ TID (Preferred with Epidurals) *Enoxaparin/Lovenox 40 mg SQ daily (WT < 150 kg, CrCl > 30 mL/min) *Enoxaparin/Lovenox 30 mg SQ daily (WT < 150 kg, CrCl > 10-29 mL/min) *Enoxaparin/Lovenox 30 mg SQ BID (WT < 150 kg, CrCl > 30 mL/min) AND *Sequential Compression Device (SCD) <Kalpesh Kayli Bloodin - 04/02/18 14:16> Assessment and Plan - Assessment (1) Syncope Code(s): R55 - Syncope and collapse Status: Acute (2) Sinus bradycardia Code(s): R00.1 - Bradycardia, unspecified Status: Acute (3) Frequent falls Code(s): R29.6 - Repeated falls Status: Acute (4) Nutrition, metabolism, and development symptoms Code(s): R63.8 - Other symptoms and signs concerning food and fluid intake Status: Acute (5) DVT prophylaxis Status: Acute <LowlouiestevensonChandan - 04/03/18 07:47> (1) Syncope Code(s): R55 - Syncope and collapse Status: Acute Plan: Patient with syncopal episode at PCP's office earlier today. Patient with underlying dementia and weakness with frequent falls. At baseline mentation per . Orthostatic BP readings negative but patient notes dizziness/light-headedness when she changes position from sitting to standing. WBC 10.4. Na 142, K 4.5. TSH 5.890. Troponin less than 0.02. Serial troponin pending. CK 59. Serial CK pending. Ammonia less than 10. UA: hazy, moderate leukocyte esterase, 15WBCs, occasional bacteria. Urine culture pending. EKG: sinus bradycardia. Serial EKG pending. ECHO pending. Carotid US pending. CT head: Atrophy, mild ventricular prominence, out of proportion to the degree of sulcal dilatation. Chest XR: Developing parenchymal changes left base. Mild interstitial edema. Hold home memantine and metoprolol as sinus bradycardia may be medication side effect. Monitor with q4hr vitals and neuro checks. Telemetry. (2) Sinus bradycardia Code(s): R00.1 - Bradycardia, unspecified Status: Acute Plan: See plan above. (3) Frequent falls Code(s): R29.6 - Repeated falls Status: Acute Plan: See plan above. PT/OT ordered. (4) Nutrition, metabolism, and development symptoms Code(s): R63.8 - Other symptoms and signs concerning food and fluid intake Status: Acute Plan: Fluid: Tolerating PO. Diet: Cardiac diet. Electrolytes: Monitor and replete as necessary. (5) DVT prophylaxis Status: Acute Plan: SCDs and compression hose. Continue home Eliquis. <Kalpesh Lucia Blood - 04/02/18 17:15> - Attending Attestation The exam, history, and the medical decision-making described in the above note were completed with the assistance of the resident physician. I reviewed and agree with the findings presented. I attest that I had a [id number] encounter with the patient on the same day, and personally performed and documented my assessment and findings in the medical record. reviewed discussed and agree with resident histories above. Interviewed and examined by me on 04/02. She has hx of vertigo and of pre-syncope and this seemed to her more like an episode of pre-syncope than vertigo. She did not fall as she was in wheelchair and typically does not walk. she wants to go home but is agreeable to an observation. She does have a murmur on exam but HR regular and ECG with some mild bradycardia that was resolved on my exam. She has hx of so based on above will get carotid dopplers, ECHO, Troponins X3, ~24hrs of telemetry and orthostatics. Unless we find something interventionable to stay longer I explained that she may be able to be discharged on 04/03. <Chandan Ramirez - 04/03/18 07:47> <Lucia Hart - Last Filed: 04/02/18 17:15> (1) Syncope Qualifiers: Syncope type: unspecified Qualified Code(s): R55 - Syncope and collapse <Chandan Ramirez - Last Filed: 04/03/18 07:47> (1) Syncope Qualifiers: Syncope type: unspecified Qualified Code(s): R55 - Syncope and collapse <Lucia Hart - Last Filed: 04/02/18 17:15> (1) Syncope Qualifiers: Syncope type: unspecified Qualified Code(s): R55 - Syncope and collapse <Chandan Ramirez - Last Filed: 04/03/18 07:47> (1) Syncope Qualifiers: Syncope type: unspecified Qualified Code(s): R55 - Syncope and collapse
[2018-04-02] MEDS ORDERED: Acetaminophen 325 MG Tablet PO PRN (14:38)
[2018-04-02 15:55] LABS: Bacteria,Urine Occasional /hpf; Bilirubin,Urine Negative (Negative); Clarity,Urine Hazy (Clear); Color,Urine Yellow (Yellw/Straw); Glucose,Urine (UA) Negative (Negative); Hyaline Casts,Urine 3 /lpf (0-3); Leukocyte Esterase,Urine Moderate (Negative); Nitrite,Urine Negative (Negative); Specific Gravity,Urine 1.017 (1.002-1.035); Squamous Epithelial Cell,Urine 5 /hpf (0-5)
[2018-04-02] MEDS ORDERED: Sod Chloride 0.9% Inj 1,000 ML IV.SIG SCH (18:15)
--- NOTE | 2018-04-02 19:00 | US ---
EXAM DATE: 04/02/2018 6:57 PM EST AGE/SEX: 82 years / Female INDICATIONS: Syncope. CLINICAL DATA: This is the patient's initial encounter. Patient reports that signs and symptoms have been present for 1 day and indicates a pain score of 0/10. MEDICAL/SURGICAL HISTORY: . Atrial fibrillation. Femur fracture. Skin rash. Carotid endarterec gabriel. Heart stent. Knee surgery. Femur fracture repair. COMPARISON: No prior exams available for comparison. VELOCITY PARAMETERS: ICA/CCA Ratio: Right 1.7 , Left 1.2 ICA: Right 88.9 cm/sec, Left 63.9 cm/sec CCA: Right 53.0 cm/sec, Left 53.0 cm/sec ECA: Right 156.8 cm/sec, Left 57.4 cm/sec Vertebral: Right 65.8 cm/sec antegrade, Left 61.7 cm/sec antegrade FINDINGS: Right Carotid: Mild arteriosclerotic plaque is visualized.The waveforms are within normal limits. Left Carotid: Mild arteriosclerotic plaque is visualized. The waveforms are within normal limits. Other: None. CONCLUSION: 1. Right Internal Carotid Artery: Mild calcified plaque without stenosis. 2. Left Internal Carotid Artery: Mild calcified plaque without stenosis. Electronically signed by: Som Quarles MD Board Certified Radiologist 04/02/2018 6:59 PM EST
[2018-04-02 21:13] LABS: Magnesium 2.2 mg/dL (1.5-2.5)
[2018-04-02 21:27] LABS: Creatine Kinase 52 U/L (26-192)
[2018-04-03 05:11] LABS: Hematocrit 39.8 % (35.0-46.0); Hemoglobin 13.4 gm/dL (11.6-15.3); Mean Corpuscular HGB Conc 33.6 % (32.0-36.0); Mean Corpuscular Hemoglobin 32.1 pg (27.0-34.0); Mean Corpuscular Volume 95.7 fL (80.0-100.0); Mean Platelet Volume 9.9 fL (7.0-11.0); Platelet Count 239 th/mm3 (150-450); Red Blood Count 4.16 mil/mm3 (4.00-5.30); Red Cell Distribution Width 14.7 % (11.6-17.2)
[2018-04-03 05:21] LABS: Calcium 8.8 mg/dL (8.5-10.1); Carbon Dioxide 23.4 meq/L (21.0-32.0)
[2018-04-03 05:23] LABS: Phosphorus 3.1 mg/dL (2.5-4.9)
[2018-04-03 05:25] LABS: Troponin I 0.02 ng/mL (0.02-0.05)
[2018-04-03] MEDS ORDERED: Metoprolol Tartrate 50 MG Tablet PO SCH (09:00)
[2018-04-03] MEDS ORDERED: Metoprolol Tartrate 25 MG Tablet PO SCH (09:00)
--- NOTE | 2018-04-03 11:56 | P.PNFP ---
Subjective Interval history: Patient reports feeling about the same without any significant changes. She denies any syncope, lightheadedness, dizziness, presyncope. Discussed plan of care. Patient wants to go home. Discussed signs of dehydration and recommended oral rehydration. <Mandeep GastonJeanmarie - 04/03/18 11:56> Results - Labs Result diagrams: 04/03/18 04:25 04/03/18 04:25 <Chandan Ramirez - 04/03/18 17:10> Abnormal lab results 04/02/18 04/03/18 Range/Units 19:23 04:25 Chloride 113 H (98-107) meq/L BUN 22 H (7-18) mg/dL Estimated GFR 69 L (>89) mL/min Troponin I Less than 0.02 L (0.02-0.05) ng/mL Short CBC 04/03/18 Range/Units 04:25 WBC 9.0 (4.0-11.0) th/mm3 Hgb 13.4 (11.6-15.3) gm/dL Hct 39.8 (35.0-46.0) % Plt Count 239 (150-450) th/mm3 BMP 04/03/18 04:25 Sodium 143 Potassium 4.0 Chloride 113 H Carbon Dioxide 23.4 BUN 22 H Creatinine 0.80 Calcium 8.8 Cardiac Enzymes 04/02/18 04/03/18 Range/Units 19:23 04:25 Total Creatine Kinase 52 103 (26-192) U/L Troponin I Less than 0.02 L 0.02 (0.02-0.05) ng/mL <Chandan Ramirez - 04/03/18 17:10> Abnormal lab results 04/02/18 04/02/18 04/02/18 Range/Units 11:30 11:30 11:59 Neut % (Auto) 70.7 H (16.0-70.0) % [place] % (Auto) 8.8 H (0.0-8.0) % Eos % (Auto) 7.4 H (0.0-4.0) % Eos # (Auto) 0.8 H (0.0-0.4) th/mm3 Chloride 110 H (98-107) meq/L BUN 24 H (7-18) mg/dL Creatinine 1.09 H (0.50-1.00) mg/dL Estimated GFR 48 L (>89) mL/min Random Glucose 73 L (74-106) mg/dL Ammonia Less than 10 L (11-32) mcmol/L Troponin I Less than 0.02 L (0.02-0.05) ng/mL Albumin 3.1 L (3.4-5.0) g/dL TSH 5.890 H (0.358-3.740) uIU/mL Urine Clarity (Clear) Ur Leukocyte Esterase (Negative) Urine WBC (0-5) /hpf Urine Bacteria (None) /hpf 04/02/18 04/02/18 04/03/18 Range/Units 15:05 19:23 04:25 Neut % (Auto) (16.0-70.0) % [place] % (Auto) (0.0-8.0) % Eos % (Auto) (0.0-4.0) % Eos # (Auto) (0.0-0.4) th/mm3 Chloride 113 H (98-107) meq/L BUN 22 H (7-18) mg/dL Creatinine (0.50-1.00) mg/dL Estimated GFR 69 L (>89) mL/min Random Glucose (74-106) mg/dL Ammonia (11-32) mcmol/L Troponin I Less than 0.02 L (0.02-0.05) ng/mL Albumin (3.4-5.0) g/dL TSH (0.358-3.740) uIU/mL Urine Clarity Hazy H (Clear) Ur Leukocyte Esterase Moderate H (Negative) Urine WBC 15 H (0-5) /hpf Urine Bacteria Occasional H (None) /hpf Short CBC 04/02/18 04/03/18 Range/Units 11:30 04:25 WBC 10.4 9.0 (4.0-11.0) th/mm3 Hgb 13.9 13.4 (11.6-15.3) gm/dL Hct 42.1 39.8 (35.0-46.0) % Plt Count 232 239 (150-450) th/mm3 BMP 04/02/18 04/03/18 11:30 04:25 Sodium 142 143 Potassium 4.5 4.0 Chloride 110 H 113 H Carbon Dioxide 24.3 23.4 BUN 24 H 22 H Creatinine 1.09 H 0.80 Calcium 8.7 8.8 Cardiac Enzymes 04/02/18 04/02/18 04/03/18 Range/Units 11:30 19:23 04:25 Total Creatine Kinase 59 52 103 (26-192) U/L Troponin I Less than 0.02 L Less than 0.02 L 0.02 (0.02-0.05) ng/mL Liver Function 04/02/18 Range/Units 11:30 Total Bilirubin 0.3 (0.2-1.0) mg/dL AST 29 (15-37) U/L ALT 22 (10-53) U/L Alkaline Phosphatase 116 (45-117) U/L Albumin 3.1 L (3.4-5.0) g/dL Urine 04/02/18 Range/Units 15:05 Urine Color Yellow (Yellw/Straw) Urine Clarity Hazy H (Clear) Urine pH 5.0 (5.0-8.5) Ur Specific [place] 1.017 (1.002-1.035) Urine Protein Negative (Neg-Trace) mg/dL Urine Glucose (UA) Negative (Negative) mg/dL <Chandan Bejarano - 04/03/18 11:56> - Imaging Impressions Carotid Doppler Study 04/02/18 00:00 CONCLUSION: 1. Right Internal Carotid Artery: Mild calcified plaque without stenosis. 2. Left Internal Carotid Artery: Mild calcified plaque without stenosis. <Chandan Ramirez - 04/03/18 17:10> Impressions Carotid Doppler Study 04/02/18 00:00 CONCLUSION: 1. Right Internal Carotid Artery: Mild calcified plaque without stenosis. 2. Left Internal Carotid Artery: Mild calcified plaque without stenosis. Chest X-Ray 04/02/18 11:31 CONCLUSION: Developing parenchymal changes left base. Mild interstitial edema. Head CT 04/02/18 11:31 CONCLUSION: Atrophy, mild ventricular prominence, out of proportion to the degree of sulcal dilatation Massimo Barrios MD FACR . . <Chandan Bejarano - 04/03/18 11:56> Physical Exam Vital signs: Vital Signs 04/02/18 20:00 04/02/18 23:28 04/03/18 07:39 Temperature 98.3 F Pulse Rate 85 77 84 Respiratory Rate 16 16 20 Blood Pressure 161/77 H 162/70 H 132/82 Pulse Oximetry 97 97 95 04/03/18 11:34 Temperature 98.6 F Pulse Rate 70 Respiratory Rate 18 Blood Pressure 144/64 H Pulse Oximetry 96 Intake & Output 04/02/18 04/03/18 04/03/18 18:59 06:59 18:59 Intake Total 240 / 240 1240 / 1240 Balance 240 / 240 1240 / 1240 Weight 45.359 kg Intake: IV 1000 / 1000 NS Inj 1,000 ML @ 1000 mls/hr 1000 / 1000 IV.SIG BOLUS MERLIN Rx#:[id number] Oral 240 / 240 240 / 240 Other: # Voids 2 2 Date of Last Bowel Movement 04/02/18 04/02/18 Weight On Admission 45.359 kg <Chandan Ramirez - 04/03/18 17:10> Vital Signs 04/02/18 14:00 04/02/18 15:39 04/02/18 20:00 Temperature 97.9 F Pulse Rate 86 85 Respiratory Rate 24 16 Blood Pressure 100/60 122/60 161/77 H Pulse Oximetry 97 97 04/02/18 23:28 04/03/18 07:39 04/03/18 11:34 Temperature 98.3 F 98.6 F Pulse Rate 77 84 70 Respiratory Rate 16 20 18 Blood Pressure 162/70 H 132/82 144/64 H Pulse Oximetry 97 95 96 Intake & Output 04/02/18 04/03/18 04/03/18 18:59 06:59 18:59 Intake Total 240 / 240 1240 / 1240 Balance 240 / 240 1240 / 1240 Weight 45.359 kg Intake: IV 1000 / 1000 NS Inj 1,000 ML @ 1000 mls/hr 1000 / 1000 IV.SIG BOLUS MERLIN Rx#:[id number] Oral 240 / 240 240 / 240 Other: # Voids 2 2 Date of Last Bowel Movement 04/02/18 Weight On Admission 45.359 kg <Mandeep GastonJeanmarie - 04/03/18 11:56> Narrative: GENERAL: Elderly female, in no acute distress. SKIN: Warm and dry. Extensive bruising over upper and lower extremities. Erythematous rash over back, chest and upper extremity - chronic per patient. HEAD: Atraumatic. Normocephalic. EYES: Pupils equal and round. No scleral icterus. No injection or drainage. ENT: No nasal bleeding or discharge. Mucous membranes pink and moist. NECK: Trachea midline. No JVD. CARDIOVASCULAR: Regular rate and regular rhythm. RESPIRATORY: No accessory muscle use. Clear to auscultation. Breath sounds equal bilaterally. GASTROINTESTINAL: Abdomen soft, non-tender, nondistended. Hepatic and splenic margins not palpable. MUSCULOSKELETAL: Extremities without clubbing, cyanosis, or edema. No obvious deformities. NEUROLOGICAL: Awake and alert. No obvious cranial nerve deficits. Motor grossly within normal limits. Four out of 5 muscle strength in the arms and legs. Normal speech. PSYCHIATRIC: Appropriate mood and affect; insight and judgment poor. <Chandan Bejarano A - 04/03/18 14:32> Assessment and Plan - Assessment (1) Syncope Code(s): R55 - Syncope and collapse Status: Acute (2) Sinus bradycardia Code(s): R00.1 - Bradycardia, unspecified Status: Acute (3) Frequent falls Code(s): R29.6 - Repeated falls Status: Acute (4) Nutrition, metabolism, and development symptoms Code(s): R63.8 - Other symptoms and signs concerning food and fluid intake Status: Acute (5) DVT prophylaxis Status: Acute <Chandan Ramirez - 04/03/18 17:10> (1) Syncope Code(s): R55 - Syncope and collapse Status: Acute Plan: Patient with syncopal episode at PCP's office earlier today. Patient with underlying dementia and weakness with frequent falls. At baseline mentation per . Orthostatic BP readings negative but patient notes dizziness/light-headedness when she changes position from sitting to standing. She reports decreased symptoms after IV fluid hydration, decreasing her metoprolol. -Plan to discharge patient today with recommendations to continue oral rehydration and decrease metoprolol from 50 mg p.o. twice daily to 25 mg p.o. twice daily -Held home memantine and decreased metoprolol as sinus bradycardia may be medication side effect. Heart rate now within normal limits. -Monitor with q4hr vitals and neuro checks. -Telemetry. Work up: WBC 10.4. Na 142, K 4.5. TSH 5.890. Troponin less than 0.02, less than 0.02, 0.02. CK 59, 52, 103 Ammonia less than 10. UA: hazy, moderate leukocyte esterase, 15 WBCs, occasional bacteria, 5 squamous epithelial cells Urine culture pending. EKG: sinus bradycardia. Serial EKG pending. Carotid US showed 1. Right Internal Carotid Artery: Mild calcified plaque without stenosis. 2. Left Internal Carotid Artery: Mild calcified plaque without stenosis. CT head: Atrophy, mild ventricular prominence, out of proportion to the degree of sulcal dilatation. Chest XR: Developing parenchymal changes left base. Mild interstitial edema. (2) Sinus bradycardia Code(s): R00.1 - Bradycardia, unspecified Status: Acute Plan: See plan above. (3) Frequent falls Code(s): R29.6 - Repeated falls Status: Acute Plan: See plan above. PT recommended continue with home health PT (4) Nutrition, metabolism, and development symptoms Code(s): R63.8 - Other symptoms and signs concerning food and fluid intake Status: Acute Plan: Fluid: Tolerating PO. Diet: Cardiac diet. Electrolytes: Monitor and replete as necessary. (5) DVT prophylaxis Status: Acute Plan: SCDs and compression hose. Continue home Eliquis. <Chandan Bejarano - 04/03/18 14:21> - Assessment and Plan Patient is an 82-year-old female with a history of atrial fibrillation, hypertension, dementia who presented with possible syncope, likely orthostatic hypotension based on history. Patient seemed to improve with IV fluids and decreased dose of metoprolol. Workup was otherwise negative. Thus, patient to be discharged home today. <Chandan Bejarano - 04/03/18 14:32> Discussed Condition With: Dr. Merritt, Dr. Ramirez. <Chandan Bejarano 04/03/18 14:32> - Attending Attestation The exam, history, and the medical decision-making described in the above note were completed with the assistance of the resident physician. I reviewed and agree with the findings presented. I attest that I had a [id number] encounter with the patient on the same day, and personally performed and documented my assessment and findings in the medical record. still wants to go home. tele ok besides sinus sarah, carotid US ok, OS ok. did decrease BB for bradycardia. ECHO done but not read. CT Head does show some ventricular enlargement so could have NPH but outpatient work up already scheduled to evaluate this will discharge after echo report or f/u after she leaves. <Chandan Ramirez 04/03/18 17:10> <Mandeep GastonJeanmarie - Filed: 04/03/18 14:21> (1) Syncope Qualifiers: Syncope type: unspecified Qualified Code(s): R55 - Syncope and collapse <Chandan Ramirez Filed: 04/03/18 17:10> (1) Syncope Qualifiers: Syncope type: unspecified Qualified Code(s): R55 - Syncope and collapse <Mandeep GastonJeanmarie Filed: 04/03/18 14:21> (1) Syncope Qualifiers: Syncope type: unspecified Qualified Code(s): R55 - Syncope and collapse <Chandan Ramirez - Filed: 04/03/18 17:10> (1) Syncope Qualifiers: Syncope type: unspecified Qualified Code(s): R55 - Syncope and collapse
--- NOTE | 2018-04-03 20:17 | ECG ---
Date Performed: 04/02/2018 Time Performed: 11:08:36 PTAGE: 82 years EKG: SINUS BRADYCARDIA POSSIBLE LEFT ATRIAL ENLARGEMENT LOW QRS VOLTAGE IN PRECORDIAL LEADS POSS IBLE LEFT VENTRICULAR HYPERTROPHY POSSIBLE ANTERIOR MYOCARDIAL INFARCTION ABNORMAL ECG PREVIOUS TRACING : 01/05/2018 12.24 Since the previous tracing, no significant change noted DOCTOR: Xiomara Cerda Interpretating Date/Time 04/03/2018 20:15:19
--- NOTE | 2018-04-03 20:17 | ECG ---
Date Performed: 04/03/2018 Time Performed: 05:07:35 PTAGE: 82 years EKG: Sinus rhythm POSSIBLE LEFT ATRIAL ENLARGEMENT MARKED LEFT AXIS DEVIATION PATTERN CONSISTENT WITH PULMONARY DISEAS E POSSIBLE LEFT VENTRICULAR HYPERTROPHY NONSPECIFIC ST ELEVATION ABNORMAL ECG PREVIOUS TRACING : 04/02/2018 16.52 Since the previous tracing, no significant change noted DOCTOR: Xiomara Cerda Interpretating Date/Time 04/03/2018 20:15:40
--- NOTE | 2018-04-03 20:17 | ECG ---
Date Performed: 04/02/2018 Time Performed: 16:52:39 PTAGE: 82 years EKG: Sinus rhythm POSSIBLE LEFT ATRIAL ENLARGEMENT POSSIBLE LEFT VENTRICULAR HYPERTROPHY INFERIOR MYOCARDIAL INFARCTIO N ABNORMAL ECG PREVIOUS TRACING : 04/02/2018 11.08 Since the previous tracing, no significant change noted DOCTOR: Xiomara Cerda Interpretating Date/Time 04/03/2018 20:15:30
--- NOTE | 2018-04-04 14:12 | ECHRPT ---
Indication: SYNCOPE CONCLUSIONS Normal left ventricular size. Mild concentric left ventricular hypertrophy. The left ventricular sys tolic function is low normal with an estimated ejection of 50%. Probable akinesis of the mid to distal in ferior and mid to distal posterior tello. Trace mitral valve regurgitation. Mild aortic valve sclerosis is present. Trace aortic valve regurgitation. There is trace tricuspid valve regurgitation. BP: / HR: Rhythm: MEASUREMENTS (Male / Female) Normal Values Technical Quality:Technically difficult study 2D ECHO LV Diastolic Diameter PLAX 3.9 cm 4.2 - 5.9 / 3.9 - 5.3 cm IVS Diastolic Thickness 1.5 cm 0.6 - 1.0 / 0.6 - 0.9 cm LVPW Diastolic Thickness 0.6 cm 0.6 - 1.0 / 0.6 - 0.9 cm LV Relative Wall Thickness 0.5 RV Internal Dim ED PLAX 1.9 cm LA Systolic Diameter LX 4.1 cm 3.0 - 4.0 / 2.7 - 3.8 cm M-MODE AV Cusp Separation MM 1.8 cm DOPPLER MV Peak Velocity 116.0 cm/s MV Peak Gradient 5.4 mmHg MV Mean Velocity 64.6 cm/s MV Mean Gradient 2.0 mmHg Mitral E Point Velocity 52.8 cm/s Mitral A Point Velocity 105.0 cm/s Mitral E to A Ratio 0.5 TR Peak Velocity 176.0 cm/s TR Peak Gradient 12.4 mmHg Right Atrial Pressure 10.0 mmHg Pulmonary Artery Systolic Pressu 22.4 mmHg Right Ventricular Systolic Press 22.4 mmHg FINDINGS LEFT VENTRICLE Normal left ventricular size. Mild concentric left ventricular hypertrophy. The left ventricular sys tolic function is low normal with an estimated ejection of 50%. Probable akinesis of the mid to distal in ferior and mid to distal posterior tello. RIGHT VENTRICLE The right ventricle was not well visualized. Normal right ventricular size and systolic function. LEFT ATRIUM The left atrial size is normal. RIGHT ATRIUM The right atrial size is normal. ATRIAL SEPTUM Normal atrial septal thickness without atrial level shunting by limited color doppler interrogation. AORTA The aortic root and proximal ascending aorta are normal in size on limited imaging. MITRAL VALVE Trace mitral valve regurgitation. AORTIC VALVE Mild aortic valve sclerosis is present. Trace aortic valve regurgitation. TRICUSPID VALVE There is trace tricuspid valve regurgitation. PULMONARY VALVE No pulmonary valve regurgitation or stenosis. VESSELS The inferior vena cava is normal in size. PERICARDIUM No pericardial effusion. Adolph Licona MD (Electronically Signed) Final Date:04 April 2018 14:11
== END 2018-04-03 14:05 | disposition home or self-care (01) | DRG 312 ==
LOC: NEDA 10:47 → NEPD 10:47 → NEDA 15:12 → NEPGCP 15:21
PROVIDERS: ADMIT Family Medicine; ATTEND Family Medicine
CPT/HCPCS: 70450; 71010; 71045; 80048; 80053; 81001; 82140; 82550; 83735; 84100; 84443; 84484; 85025; 85027; 85610; 85730; 87086; 87493; 93005; 93306; 93880; 94150; 97162; 99285; G8987; G8988; J7030